=== PATIENT | female | born 1935 | race Caucasian/White ===

== ENCOUNTER 2017-11-20 14:39 | Outpatient (CLI) | payer MEDICARE, OTHER ==
[2017-11-20 17:52] LABS: BASOPHILS % (AUTO) 1.1 %; EOSINOPHILS # (AUTO) 0.1 10^3/uL (0.0-0.7); EOSINOPHILS % (AUTO) 2.6 %; HGB - HEMOGLOBIN 13.4 g/dL (12.0-16.0); LYMPHOCYTES # (AUTO) 1.5 10^3/uL (1.5-3.5); LYMPHOCYTES % (AUTO) 34.6 %; MEAN CORPUSCULAR HEMOGLOBIN 30.7 pg (27.0-31.0); MEAN CORPUSCULAR VOLUME 93.1 fL (81.0-99.0); MEAN PLATELET VOLUME 9.6 fL (7.9-10.8); MONOCYTES # (AUTO) 0.4 10^3/uL (0.0-1.0); MONOCYTES % (AUTO) 8.4 %; NEUTROPHILS # (AUTO) 2.3 10^3/uL (1.5-6.6); NEUTROPHILS % (AUTO) 53.3 %; PLT - PLATELET COUNT 135 10^3/uL (130-450); RED BLOOD COUNT 4.35 10^6/uL (4.20-5.40); RED CELL DISTRIBUTION WIDTH 13.6 % (12.0-15.0); WHITE BLOOD COUNT 4.2 x10^3/uL (4.8-10.8)
[2017-11-20 17:59] LABS: ALBUMIN 4.2 g/dL (3.2-5.5); ALBUMIN/GLOBULIN RATIO 1.6 (1.0-2.2); ALKALINE PHOSPHATASE 60 IU/L (42-121); ALT ALANINE AMINOTRANSFERASE < 10 IU/L (10-60); AST ASPARTATE AMINOTRANSFERASE 19 IU/L (10-42); BILIRUBIN,TOTAL 0.2 mg/dL (0.2-1.0); BUN - BLOOD UREA NITROGEN 13 mg/dL (6-20); CALCIUM 8.9 mg/dL (8.5-10.3); CARBON DIOXIDE - CO2 30 mmol/L (21-32); CHLORIDE 108 mmol/L (101-111); CREATININE 0.6 mg/dL (0.4-1.0); GFR - MDRD 96 (>89); GLUCOSE 107 mg/dL (70-100); SODIUM 141 mmol/L (135-145); TOTAL PROTEIN 6.8 g/dL (6.7-8.2)
== END 2017-11-20 14:40 | disposition home or self-care (01) ==
LOC: LAB.F 14:39
PROVIDERS: ATTEND Physician Assistant Medical
DX: Z51.81 Encounter for therapeutic drug level monitoring (principal)
CPT/HCPCS: 36415; 80053; 85025

== ENCOUNTER 2018-01-23 11:32 | Outpatient (CLI) | payer MEDICARE, OTHER | END 2018-01-23 11:33 | disposition critical access hospital (66) | LOC: EMS 11:32 | PROVIDERS: ATTEND Surgery | DX: R07.9 Chest pain, unspecified (principal) | CPT/HCPCS: A0425; A0427 ==

== ENCOUNTER 2018-01-23 12:10 | Emergency (ER) | payer MEDICARE, OTHER ==
[2018-01-23 12:53] LABS: BASOPHILS % (AUTO) 0.9 %; EOSINOPHILS # (AUTO) 0.1 10^3/uL (0.0-0.7); EOSINOPHILS % (AUTO) 2.4 %; HGB - HEMOGLOBIN 13.9 g/dL (12.0-16.0); LYMPHOCYTES # (AUTO) 1.5 10^3/uL (1.5-3.5); LYMPHOCYTES % (AUTO) 29.2 %; MEAN CORPUSCULAR HEMOGLOBIN 30.8 pg (27.0-31.0); MEAN CORPUSCULAR HGB CONC 34.2 g/dL (32.0-36.0); MEAN CORPUSCULAR VOLUME 90.1 fL (81.0-99.0); MEAN PLATELET VOLUME 8.6 fL (7.9-10.8); MONOCYTES # (AUTO) 0.4 10^3/uL (0.0-1.0); MONOCYTES % (AUTO) 7.5 %; NEUTROPHILS # (AUTO) 3.1 10^3/uL (1.5-6.6); PLT - PLATELET COUNT 108 10^3/uL (130-450); RED BLOOD COUNT 4.51 10^6/uL (4.20-5.40); RED CELL DISTRIBUTION WIDTH 13.7 % (12.0-15.0); WHITE BLOOD COUNT 5.2 x10^3/uL (4.8-10.8)
[2018-01-23 13:08] LABS: ALBUMIN 3.8 g/dL (3.2-5.5); ALBUMIN/GLOBULIN RATIO 1.4 (1.0-2.2); BILIRUBIN,TOTAL 0.3 mg/dL (0.2-1.0); CALCIUM 8.6 mg/dL (8.5-10.3); CREATININE 0.5 mg/dL (0.4-1.0); TOTAL PROTEIN 6.5 g/dL (6.7-8.2)
--- NOTE | 2018-01-23 13:14 | XRAY Report ---
EXAM: CHEST RADIOGRAPHY EXAM DATE: 01/23/2018 12:39 PM. CLINICAL HISTORY: Chest pain. COMPARISON: 01/23/2018. TECHNIQUE: 2 views. FINDINGS: Lungs/Pleura: Lungs appear clear. No pleural effusion or pneumothorax. Relatively large lung volumes as before. Mediastinum: Stable cardiomediastinal silhouette. Similar tortuous mildly ectatic aorta. Other: Scoliosis. Bone demineralization. No acute fracture identified. IMPRESSION: 1. No acute cardiopulmonary findings. Grossly clear lungs. [facility] Referring Provider Line: [phone] SITE ID: [id number]
--- NOTE | 2018-01-23 13:14 | XRAY Preliminary Report ---
Exam: XR CHEST 2 VIEW X-RAY IMPRESSION: 1. No acute cardiopulmonary findings. Grossly clear lungs. [facility] SITE ID: [id number]
--- NOTE | 2018-01-23 13:33 | ED Physician Documentation ---
PD HPI CHEST PAIN - Stated complaint Stated Complaint: CP - Chief complaint Chief Complaint: Cardiac - History obtained from History obtained from: Patient - History of Present Illness Timing - onset: Today Timing - onset during: Rest Timing - duration: Minutes Timing - details: Abrupt onset, Now resolved Quality: Pressure Location: Substernal Radiation: No: Jaw, Neck Improved by: Rest Associated symptoms: Diaphoresis, Feeling faint / dizzy Similar symptoms before: Diagnosis (dehydration) Recently seen: Not recently seen - Additional information Additional information: 82-year-old female sitting her couch today when she developed some substernal chest pain. She has had something similar to this previously a number of times and she usually has this resolved spontaneously or she takes some nitroglycerin and it resolved. Today should this did not resolve with 2 nitro and she called the ambulance. Pain is resolved prior to arrival to the emergency department. Review of Systems Constitutional: denies: Fever Eyes: denies: Decreased vision Ears: denies: Ear pain Nose: denies: Congestion Throat: denies: Sore throat Cardiac: reports: Chest pain / pressure. 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 - Present Medications Home Medications: Ambulatory Orders Medication Instructions Recorded Confirmed Multivitamin [Multivitamins] 1 each PO DAILY 12/21/15 04/17/17 Nitroglycerin [Nitrostat] 0.4 mg SL ONCE PRN 12/21/15 04/17/17 Acetaminophen [Tylenol] 650 mg PO Q4H PRN 06/18/16 04/17/17 Ferrous Sulfate 90 mg PO DAILY 06/18/16 04/17/17 Metoprolol Succinate [Toprol Xl] 50 mg PO DAILY 06/18/16 04/17/17 Omeprazole 20 mg PO DAILY 06/18/16 04/17/17 Calcium Citrate/Magnesium/D3 630 mg PO DAILY 07/18/16 04/17/17 [Calcium Citrate Chewable Wafer] Donepezil [Aricept] 10 mg PO QPM 07/18/16 04/17/17 Potassium Chloride 20 meq PO DAILY 07/18/16 04/17/17 - Allergies Allergies/Adverse Reactions: Allergies Allergy/AdvReac Type Severity Reaction Status Date / Time aspirin Allergy Unknown Verified 01/23/18 12:18 Penicillins Allergy Unknown Verified 01/23/18 12:18 bellpepper Allergy Anaphylaxis Uncoded 01/23/18 12:18 eggplant Allergy Anaphylaxis Uncoded 01/23/18 12:18 potato Allergy Anaphylaxis Uncoded 01/23/18 12:18 tomato Allergy Anaphylaxis Uncoded 01/23/18 12:18 - Social History Does the pt smoke?: No Smoking Status: Never smoker Does the pt have substance abuse?: No - Immunizations Immunizations are current?: No Immunizations: TDAP >10years/unknown PD ED PE NORMAL - Vitals Vital signs reviewed: Yes (hypertensive ) - General General: Alert and oriented X 3, No acute distress, Well developed/nourished - HEENT HEENT: Atraumatic, PERRL, EOMI - Neck Neck: Supple, no meningeal sign, No bony TTP - Cardiac Cardiac: RRR, No murmur - Respiratory Respiratory: No respiratory distress, Clear bilaterally - Abdomen Abdomen: Soft, Non tender - Back Back: No CVA TTP, No spinal TTP - Derm Derm: Normal color, Warm and dry, No rash - Extremities Extremities: No deformity, No edema - Neuro Neuro: Alert and oriented X 3, 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, No motor deficit, No sensory deficit, Normal speech Eye Opening: Spontaneous Motor: Obeys Commands Verbal: Oriented GCS Score: 15 - Psych Psych: Normal mood, Normal affect Results - Vitals Vitals: Vital Signs - 24 hr 01/23/18 01/23/18 12:13 14:38 Temperature 37.2 C 36.7 C Heart Rate 78 79 Respiratory 16 17 Rate Blood Pressure 160/77 H 180/82 H O2 Saturation 96 99 Oxygen O2 Source Room air - EKG (time done) 1217 Rate: Rate (enter#) (73) Rhythm: NSR Intervals: Prolonged GA QRS: LVH Ischemia: Q waves (inferior and anterior) Compare to prior EKG: Unchanged from prior EKG (12-22-15) Computer interpretation: Agree with computer - Labs Labs: Laboratory Tests 01/23/18 01/23/18 01/23/18 12:50 12:50 12:50 WBC 5.2 RBC 4.51 Hgb 13.9 Hct 40.6 MCV 90.1 MCH 30.8 MCHC 34.2 RDW 13.7 Plt Count 108 L MPV 8.6 Neut # 3.1 Lymph # 1.5 Mccreary # 0.4 Eos # 0.1 Baso # 0.0 Absolute Nucleated RBC 0.00 Nucleated RBC % 0.0 Sodium 138 Potassium 3.7 Chloride 107 Carbon Dioxide 25 Anion Gap 6.0 BUN 21 H Creatinine 0.5 Estimated GFR (MDRD) 118 Glucose 98 Calcium 8.6 Total Bilirubin 0.3 AST 18 ALT 10 Alkaline Phosphatase 56 Troponin I < 0.04 Total Protein 6.5 L Albumin 3.8 Globulin 2.7 Albumin/Globulin Ratio 1.4 Lipase 20 L - Rads (name of study) 2 view chest Radiology: Prelim report reviewed (Impression: 1. No acute cardiopulmonary findings. Grossly clear lungs.), EMP read indepedently, See rad report Procedures - IVC sono (time) 1408 Bedside IVC sono: IVC measures (cm) (1.12), IVC collapsed c insp (cm) (complete) , Dehydration (est 1 liter deficit) PD MEDICAL DECISION MAKING - ED course Complexity details: reviewed old records, reviewed results, re-evaluated patient , considered differential, d/w patient ED course: 82-year-old female has presented to the emergency department today with episode of chest pain that is now resolved. She has had similar symptoms previously. Here in the emergency department today her troponin is negative her chest x-ray shows a very clear appearing chest x-ray and I am concerned about dehydration. I confirm this by interrogation of the inferior vena cava which shows a collapsing vena cava with a measurement consistent with approximately 1 L deficit. She is administered saline 1 L intravenously. In review of the patient's chart she has prior episodes with concern for dehydration on a number of visits. Today BUN is up slightly out of proportion to the creatinine consistent with prerenal azotemia. Departure - Departure Disposition: 01 Home, Self Care Clinical Impression: Dehydration Condition: Stable Instructions: ED Dehydration Follow-Up: Georgina Fuentes PA-C [Primary Care Provider] -
[2018-01-23] MEDS ORDERED: SODIUM CHLORIDE 0.9% 1,000 ML IV ONE (14:09)
[2018-01-23 16:39] VITALS: BP 141/62
== END 2018-01-23 17:12 | disposition home or self-care (01) ==
LOC: EDUNIT# → ED 12:10
DX: E86.0 Dehydration (principal); I10 Essential (primary) hypertension; I25.119 Atherosclerotic heart disease of native coronary artery with unspecified angina pectoris; J44.9 Chronic obstructive pulmonary disease, unspecified; K21.9 Gastro-esophageal reflux disease without esophagitis; M19.90 Unspecified osteoarthritis, unspecified site
CPT/HCPCS: 36415; 71046; 80053; 83690; 84484; 85025; 93005; 99284

== ENCOUNTER 2018-02-13 09:48 | Outpatient (CLI) | payer MEDICARE, OTHER | END 2018-02-13 09:49 | disposition critical access hospital (66) | LOC: EMS 09:48 | PROVIDERS: ATTEND Surgery | DX: M25.551 Pain in right hip (principal); W18.30XA Fall on same level, unspecified, initial encounter; Y92.9 Unspecified place or not applicable | CPT/HCPCS: A0425; A0429 ==

== ENCOUNTER 2018-02-13 10:46 | Emergency (ER) | payer MEDICARE, OTHER ==
[2018-02-13] MEDS ORDERED: SODIUM CHLORIDE 0.9% 1,000 ML IV ONE (11:28)
--- NOTE | 2018-02-13 11:30 | ED Physician Documentation ---
PD HPI NVD - Stated complaint Stated Complaint: FALL - Chief complaint Chief Complaint: Trauma Ext - History obtained from History obtained from: Patient, EMS - History of Present Illness Timing - onset: Today Contributing factors: No: Sick contact, Travel, Recent antibiotics - Additonal information Additional information: The patient is an 82-year-old female who arrives via ambulance after her family found her lying on the floor outside the bathroom this morning. She had been complaining of right hip pain at that time, but she denies right hip pain to me. She has a history of chronic left hip pain. Her main complaint to me is, "I have got the trots that just won't stop." She reports having diarrhea for the past 3 days, with about 6 episodes this morning. She reports having loose stool sporadically for the past 2 weeks. She denies abdominal pain, fever, nausea, vomiting, or dysuria. She denies any recent travel, any recent antibiotics, or any food or water that is different from usual. She denies history of similar symptoms in the past. She lives at home and her son lives with her. Past medical history is significant for dementia, CAD, and hypertension. Review of Systems Constitutional: denies: Fever Nose: denies: Congestion Cardiac: denies: Chest pain / pressure Respiratory: denies: Dyspnea, Cough GI: reports: Diarrhea. denies: Abdominal Pain, Nausea, Vomiting : denies: Dysuria Skin: denies: Rash Musculoskeletal: reports: Joint pain (left hip) Neurologic: reports: Confused (chronically). 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 - Present Medications Home Medications: Ambulatory Orders Medication Instructions Recorded Confirmed Multivitamin [Multivitamins] 1 each PO DAILY 12/21/15 02/14/18 Nitroglycerin [Nitrostat] 0.4 mg SL ONCE PRN 12/21/15 02/14/18 Acetaminophen [Tylenol] 650 mg PO Q4H PRN 06/18/16 02/14/18 Ferrous Sulfate 90 mg PO DAILY 06/18/16 02/14/18 Metoprolol Succinate [Toprol Xl] 50 mg PO DAILY 06/18/16 02/14/18 Omeprazole 20 mg PO DAILY 06/18/16 02/14/18 Calcium Citrate/Magnesium/D3 630 mg PO DAILY 07/18/16 02/14/18 [Calcium Citrate Chewable Wafer] Donepezil [Aricept] 10 mg PO QPM 07/18/16 02/14/18 Potassium Chloride 20 meq PO DAILY 07/18/16 02/14/18 Potassium Chloride [K-Dur] 20 meq PO DAILY #7 tablet 02/13/18 02/14/18 Vancomycin [Vancocin] 125 mg PO QID #40 capsule 02/13/18 02/14/18 Lidocaine Patch 5% [Lidoderm Patch] 1 each TOP DAILY PRN #10 patch 02/14/18 - Allergies Allergies/Adverse Reactions: Allergies Allergy/AdvReac Type Severity Reaction Status Date / Time aspirin Allergy Severe Unknown Verified 02/14/18 11:07 Penicillins Allergy Severe Unknown Verified 02/14/18 11:07 bellpepper Allergy Severe Anaphylaxis Uncoded 02/14/18 11:07 eggplant Allergy Severe Anaphylaxis Uncoded 02/14/18 11:07 potato Allergy Severe Anaphylaxis Uncoded 02/14/18 11:07 tomato Allergy Severe Anaphylaxis Uncoded 02/14/18 11:07 - Social History Does the pt smoke?: No Smoking Status: Never smoker Does the pt have substance abuse?: No - Immunizations Immunizations are current?: No Immunizations: TDAP >10years/unknown PD ED PE NORMAL - Vitals Vital signs reviewed: Yes (hypertensive) - General General: Well developed/nourished, Other (Alert, but confused, unable to state the year or the current president.) - HEENT HEENT: Atraumatic, Moist mucous membranes, Pharynx benign - Neck Neck: No adenopathy, No JVD - Cardiac Cardiac: RRR, No murmur - Respiratory Respiratory: No respiratory distress, Clear bilaterally - Abdomen Abdomen: Normal bowel sounds, Soft, Non tender, No organomegaly - Rectal Rectal: Other (Loose diarrhea stool, malodorous, heme neg.) - Back Back: No CVA TTP - Derm Derm: No rash - Extremities Extremities: No edema, No calf tenderness / cord - Neuro Neuro: No motor deficit, No sensory deficit, Normal speech, Other (Alert but confused.) Results - Vitals Vitals: Oxygen O2 Source Room air - Labs Labs: Microbiology 02/13/18 12:40 Urine Culture - Preliminary Urine,Catheterized No growth 02/13/18 11:27 Campylobacter Antigen Assay - Final Stool Stool Culture - Preliminary NO SHIGA TOXIN 1 OR 2 DETECTED 02/13/18 11:27 Clostridium difficile (PCR) - Final Stool Laboratory Tests 02/13/18 02/13/18 02/13/18 12:31 12:31 12:40 WBC 8.9 RBC 4.42 Hgb 13.6 Hct 39.7 MCV 89.7 MCH 30.7 MCHC 34.2 RDW 13.3 Plt Count 94 L MPV 9.1 Neut # 7.3 H Lymph # 0.9 L [place] # 0.7 Eos # 0.0 Baso # 0.0 Absolute Nucleated RBC 0.00 Nucleated RBC % 0.0 Sodium 137 Potassium 3.0 L Chloride 103 Carbon Dioxide 26 Anion Gap 8.0 BUN 15 Creatinine 0.6 Estimated GFR (MDRD) 96 Glucose 118 H Calcium 8.6 Total Bilirubin 0.6 AST 23 ALT < 10 L Alkaline Phosphatase 70 Total Protein 7.0 Albumin 3.7 Globulin 3.3 Albumin/Globulin Ratio 1.1 Lipase < 10 L Urine Color DARK YELLOW Urine Clarity SL. CLOUDY Urine pH 5.5 Ur Specific [place] >=1.030 H Urine Protein 100 H Urine Glucose (UA) NEGATIVE Urine Ketones 15 H Urine Occult Blood TRACE-LYSE Urine Nitrite NEGATIVE Urine Bilirubin NEGATIVE Urine Urobilinogen 0.2 (NORMAL) Ur Leukocyte Esterase NEGATIVE Urine RBC 6-10 H Urine WBC 0-3 Ur Squamous Epith Cells RARE Squamous Amorphous Sediment Few Urine Bacteria Many H Urine Casts 0-2 Granular Casts Urine Mucus Moderate Strands Ur Microscopic Review INDICATED Urine Culture Comments INDICATED - Rads (name of study) left hip w/pelvis Radiology: Prelim report reviewed, EMP read contemporaneously, See rad report ( No acute osseous abnormality. No significant change from prior, allowing for differences in technique.) PD MEDICAL DECISION MAKING - ED course Complexity details: reviewed results, re-evaluated patient, considered differential, d/w patient, d/w family, d/w PMD ED course: The patient's presentation is most significant for C. difficile diarrhea, with positive C. difficile PCR. She was seen because of a fall this morning. There appears to been no injury caused from the fall. Imaging study of her left hip reveals no acute fracture or dislocation. CBC and chemistry panel are unremarkable except for hypokalemia with a potassium of 3.0. Treatment in the emergency department included administration of potassium 20 mEq orally, normal saline 1 L IV, metronidazole 500 mg orally, and vancomycin 125 mg orally. She is being discharged with prescription for vancomycin. I discussed with her, her son, and her primary physician, the results of the workup, outpatient treatment and follow-up, as well as potentially worrisome signs or symptoms that should prompt reevaluation in the emergency department. Departure - Departure Disposition: 01 Home, Self Care Clinical Impression: C. difficile diarrhea, Hypokalemia, Dehydration Dementia Qualifiers: Dementia type: unspecified type Dementia behavioral disturbance: without behavioral disturbance Qualified Code(s): F03.90 - Unspecified dementia without behavioral disturbance Condition: Stable Instructions: ED Diarrhea Bacterial Follow-Up: Georgina Fuentes PA-C [Primary Care Provider] - Prescriptions: Potassium Chloride [K-Dur] 20 meq PO DAILY #7 tablet Vancomycin [Vancocin] 125 mg PO QID #40 capsule Comments: Drink plenty of fluids. Take vancomycin 4 times daily for 10 days as prescribed. Take supplemental potassium as prescribed. Follow up with your primary physician within 1 week. Call to schedule appointment. Return to the emergency department if you develop increasing abdominal pain, dehydration, or otherwise worsening symptoms. Discharge Date/Time: 02/13/18 16:36
--- NOTE | 2018-02-13 12:40 | XRAY Report ---
EXAM: LEFT HIP AND PELVIS RADIOGRAPHY EXAM DATE: 02/13/2018 12:02 PM. HISTORY: Fall with mild left hip pain. COMPARISONS: 12/07/2015. TECHNIQUE: 1 view of the pelvis and 1 view of the hip. 3 images are provided. FINDINGS: Bones: Diffuse demineralization. Status post right total hip arthroplasty without evidence of hardwar e loosening or failure. Joints: No dislocation. Soft Tissues: No significant abnormality. IMPRESSION: No acute osseous abnormality. No significant change from prior allowing for differences i n technique. [facility] Referring Provider Line: [phone] SITE ID: [id number]
--- NOTE | 2018-02-13 12:40 | XRAY Preliminary Report ---
Exam: XR HIP W/PELVIS 1V LT IMPRESSION: No acute osseous abnormality. No significant change from prior allowing for differences i n technique. [facility] SITE ID: [id number]
[2018-02-13 12:43] LABS: BASOPHILS % (AUTO) 0.3 %; EOSINOPHILS % (AUTO) 0.3 %; HGB - HEMOGLOBIN 13.6 g/dL (12.0-16.0); LYMPHOCYTES # (AUTO) 0.9 10^3/uL (1.5-3.5); LYMPHOCYTES % (AUTO) 9.6 %; MEAN CORPUSCULAR HEMOGLOBIN 30.7 pg (27.0-31.0); MEAN CORPUSCULAR HGB CONC 34.2 g/dL (32.0-36.0); MEAN CORPUSCULAR VOLUME 89.7 fL (81.0-99.0); MEAN PLATELET VOLUME 9.1 fL (7.9-10.8); MONOCYTES # (AUTO) 0.7 10^3/uL (0.0-1.0); MONOCYTES % (AUTO) 8.3 %; NEUTROPHILS # (AUTO) 7.3 10^3/uL (1.5-6.6); NEUTROPHILS % (AUTO) 81.5 %; PLT - PLATELET COUNT 94 10^3/uL (130-450); RED BLOOD COUNT 4.42 10^6/uL (4.20-5.40); RED CELL DISTRIBUTION WIDTH 13.3 % (12.0-15.0); WHITE BLOOD COUNT 8.9 x10^3/uL (4.8-10.8)
[2018-02-13 12:44] LABS: CLARITY,URINE SL. CLOUDY (CLEAR); GLUCOSE, URINE (UA) NEGATIVE (NEGATIVE); KETONES,URINE (UA) 15 mg/dL (NEGATIVE); LEUKOCYTE ESTERASE, URINE NEGATIVE (NEGATIVE); NITRITE,URINE NEGATIVE (NEGATIVE); OCCULT BLOOD,URINE TRACE-LYSE (NEGATIVE); PH,URINE 5.5 PH (5.0-7.5); PROTEIN,URINE 100 mg/dL (NEGATIVE); UROBILINOGEN,URINE 0.2 (NORMAL) E.U./dL (NORMAL)
[2018-02-13 12:47] LABS: BILIRUBIN,URINE NEGATIVE (NEGATIVE); ICTOTEST,URINE NEGATIVE
[2018-02-13 12:53] LABS: AMORPHOUS SEDIMENT,UR Few /LPF; BACTERIA,URINE Many /HPF (None Seen); SQUAMOUS EPITHELIAL CELL,UR RARE Squamous (<= Few)
[2018-02-13 12:54] LABS: CASTS, URINE 0-2 Granular Casts /LPF; MUCUS,URINE Moderate Strands
[2018-02-13 13:04] LABS: ALBUMIN 3.7 g/dL (3.2-5.5); ALBUMIN/GLOBULIN RATIO 1.1 (1.0-2.2); ALKALINE PHOSPHATASE 70 IU/L (42-121); ALT ALANINE AMINOTRANSFERASE < 10 IU/L (10-60); AST ASPARTATE AMINOTRANSFERASE 23 IU/L (10-42); BILIRUBIN,TOTAL 0.6 mg/dL (0.2-1.0); BUN - BLOOD UREA NITROGEN 15 mg/dL (6-20); CALCIUM 8.6 mg/dL (8.5-10.3); CARBON DIOXIDE - CO2 26 mmol/L (21-32); CHLORIDE 103 mmol/L (101-111); CREATININE 0.6 mg/dL (0.4-1.0); GFR - MDRD 96 (>89); GLUCOSE 118 mg/dL (70-100); LIPASE < 10 U/L (22-51); SODIUM 137 mmol/L (135-145)
[2018-02-13] MEDS ORDERED: POTASSIUM CHLORIDE 20 MEQ TABLET PO STA (13:05)
[2018-02-13] MEDS ORDERED: NITROFURANTOIN MACRO 100 MG CAPSULE PO STA (13:10)
[2018-02-13] MEDS ORDERED: metroNIDAZOLE 250 MG TABLET PO STA (13:24)
[2018-02-13] MEDS ORDERED: VANCOMYCIN 125 MG CAPSULE PO STA (14:31)
[2018-02-13 16:01] VITALS: BP 150/92
== END 2018-02-13 16:36 | disposition home or self-care (01) ==
LOC: EDUNIT# → ED 10:46
DX: A04.72 Enterocolitis due to Clostridium difficile, not specified as recurrent (principal); E87.6 Hypokalemia; E86.0 Dehydration; F03.90 Unspecified dementia, unspecified severity, without behavioral disturbance, psychotic disturbance, mood disturbance, and anxiety; M25.552 Pain in left hip; G89.29 Other chronic pain; W19.XXXA Unspecified fall, initial encounter; Y92.009 Unspecified place in unspecified non-institutional (private) residence as the place of occurrence of the external cause; I25.10 Atherosclerotic heart disease of native coronary artery without angina pectoris; I10 Essential (primary) hypertension; Z96.649 Presence of unspecified artificial hip joint; M81.0 Age-related osteoporosis without current pathological fracture
CPT/HCPCS: 36415; 51701; 73501; 80053; 81001; 83690; 85025; 87045; 87046; 87086; 87177; 87209; 87493; 96360; 96361; 99284; A9270; J8499; 81003

== ENCOUNTER 2018-02-14 10:19 | Outpatient (CLI) | payer MEDICARE, OTHER | END 2018-02-14 10:20 | disposition critical access hospital (66) | LOC: EMS 10:19 | PROVIDERS: ATTEND Surgery | DX: M54.2 Cervicalgia (principal); W06.XXXA Fall from bed, initial encounter; Y92.9 Unspecified place or not applicable | CPT/HCPCS: A0425; A0429 ==

== ENCOUNTER 2018-02-14 10:59 | Emergency (ER) | payer MEDICARE, OTHER ==
--- NOTE | 2018-02-14 11:06 | ED Physician Documentation ---
History of Present Illness - Stated complaint Stated Complaint: GLF - Additonal information Additional information: hx from pt 82 female seen yesterday for a fall dx UTI discharged has not been able to fill meds yet fell again today and struck back of head no LOC + GARCIA and neck pain no numbness or weakness no ext injury denies CP and AP lives in home with her son arrives in her hospital scrub pants and socks from yesterday with her sons name and number on a note Review of Systems Constitutional: denies: Fever, Chills Ears: denies: Drainage/discharge Nose: denies: Epistaxis Cardiac: denies: Chest pain / pressure Respiratory: denies: Dyspnea GI: denies: Abdominal Pain, Nausea, Vomiting Musculoskeletal: reports: Neck pain Neurologic: reports: Headache, Head injury. 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 - Present Medications Home Medications: Ambulatory Orders Medication Instructions Recorded Confirmed Multivitamin [Multivitamins] 1 each PO DAILY 12/21/15 02/14/18 Nitroglycerin [Nitrostat] 0.4 mg SL ONCE PRN 12/21/15 02/14/18 Acetaminophen [Tylenol] 650 mg PO Q4H PRN 06/18/16 02/14/18 Ferrous Sulfate 90 mg PO DAILY 06/18/16 02/14/18 Metoprolol Succinate [Toprol Xl] 50 mg PO DAILY 06/18/16 02/14/18 Omeprazole 20 mg PO DAILY 06/18/16 02/14/18 Calcium Citrate/Magnesium/D3 630 mg PO DAILY 07/18/16 02/14/18 [Calcium Citrate Chewable Wafer] Donepezil [Aricept] 10 mg PO QPM 07/18/16 02/14/18 Potassium Chloride 20 meq PO DAILY 07/18/16 02/14/18 Potassium Chloride [K-Dur] 20 meq PO DAILY #7 tablet 02/13/18 02/14/18 Vancomycin [Vancocin] 125 mg PO QID #40 capsule 02/13/18 02/14/18 Lidocaine Patch 5% [Lidoderm Patch] 1 each TOP DAILY PRN #10 patch 02/14/18 - Allergies Allergies/Adverse Reactions: Allergies Allergy/AdvReac Type Severity Reaction Status Date / Time aspirin Allergy Severe Unknown Verified 02/14/18 11:07 Penicillins Allergy Severe Unknown Verified 02/14/18 11:07 bellpepper Allergy Severe Anaphylaxis Uncoded 02/14/18 11:07 eggplant Allergy Severe Anaphylaxis Uncoded 02/14/18 11:07 potato Allergy Severe Anaphylaxis Uncoded 02/14/18 11:07 tomato Allergy Severe Anaphylaxis Uncoded 02/14/18 11:07 - Social History Does the pt smoke?: No Smoking Status: Never smoker Does the pt have substance abuse?: No - Immunizations Immunizations are current?: No Immunizations: TDAP >10years/unknown PD ED PE NORMAL - Vitals Vital signs reviewed: Yes - HEENT HEENT: Other (TTP L occiput s lac) - Neck Neck: No: No bony TTP (+ midline TTP) - Cardiac Cardiac: RRR - Respiratory Respiratory: No respiratory distress, Clear bilaterally - Abdomen Abdomen: Soft, Non tender - Derm Derm: Normal color - Extremities Extremities: No deformity, No tenderness to palpate - Neuro Neuro: No: Alert and oriented X 3 (confused + medics state she has dementia) Eye Opening: Spontaneous Motor: Obeys Commands Verbal: Confused GCS Score: 14 Results - Vitals Vitals: Vital Signs - 24 hr 02/14/18 11:05 Temperature 37.1 C Heart Rate 67 Respiratory 14 Rate Blood Pressure 136/105 H O2 Saturation 100 Oxygen O2 Source Room air - Rads (name of study) CTH Radiology: See rad report (no fx or bleed) CT CS' Radiology: See rad report (no fx or dislocation) PD MEDICAL DECISION MAKING - ED course ED course: EMS report was that pt had a UTI but when i looked up yesterdays note to see what ab so i could give a dose apparently she actually has c diff diarrhea not a UTI at all - so gave IVF and a dose of vanco and will road test and dc if safe CTH and CS neg nurse got pt up and she was steady on her feet with nl VS feel safe for her to go home where she has son for assistance nurse has called son to update him on plan Departure - Departure Disposition: 01 Home, Self Care Clinical Impression: Head injury Qualifiers: Encounter type: initial encounter Qualified Code(s): S09.90XA - Unspecified injury of head, initial encounter Neck sprain Qualifiers: Encounter type: initial encounter Qualified Code(s): S13.9XXA - Sprain of joints and ligaments of unspecified parts of neck, initial encounter Fall Qualifiers: Encounter type: initial encounter Qualified Code(s): W19.XXXA - Unspecified fall, initial encounter Condition: Good Instructions: ED Head Injury Closed, ED Neck Back Pain General Follow-Up: Georgina Fuentes PA-C [Primary Care Provider] - Prescriptions: Lidocaine Patch 5% [Lidoderm Patch] 1 each TOP DAILY PRN #10 patch PRN Reason: Pain Comments: Please continue the antibiotics for your c-difficile colon infection. Drink plenty of fluids Rest as much as possible Please ask you son for assistance and / or use a walker for extra support to prevent falls Follow up with your PMD next week Return if worse
--- NOTE | 2018-02-14 11:44 | CT Report ---
EXAM: CT HEAD EXAM DATE: 02/14/2018 11:31 AM. CLINICAL HISTORY: Fall headache and neck pain. COMPARISON: None. TECHNIQUE: Multiaxial CT images were obtained from the foramen magnum to the vertex. Reformats: Coron al. IV contrast: None. In accordance with CT protocol optimization, one or more of the following dose reduction techniques w ere utilized for this exam: automated exposure control, adjustment of mA and/or KV based on patient s ize, or use of iterative reconstructive technique. FINDINGS: Parenchyma: No intraparenchymal hemorrhage. No evidence of mass, midline shift, or CT findings of inf arction. There are periventricular and deep white matter low attenuating foci, suggesting chronic alessio rovascular ischemic changes. Hammonds-white differentiation appears otherwise distinct. Extraaxial Spaces: Normal for age. No subdural or epidural collections identified. Ventricles: No midline shift. Sinuses and Orbits: Postsurgical right orbit is noted. The paranasal sinuses and mastoid air cells ap pear well-aerated. Bones: No evidence of fracture or calvarial defect. Other: Scalp granulomas are noted. IMPRESSION: No evidence of acute intracranial process or calvarial fracture [facility] Referring Provider Line: [phone] SITE ID: [id number]
--- NOTE | 2018-02-14 11:44 | CT Preliminary Report ---
Exam: CT HEAD W/O IMPRESSION: No evidence of acute intracranial process or calvarial fracture [facility] SITE ID: [id number]
--- NOTE | 2018-02-14 11:50 | CT Report ---
EXAM: CT CERVICAL SPINE WITHOUT CONTRAST DATE: 02/14/2018 11:31 AM. HISTORY: Fall headache and neck pain. COMPARISONS: None. TECHNIQUE: Thin-section axial images were acquired of the cervical spine without contrast. Post-proce ssing: Coronal and sagittal reformats In accordance with CT protocol optimization, one or more of the following dose reduction techniques w ere utilized for this exam: automated exposure control, adjustment of mA and/or KV based on patient s ize, or use of iterative reconstructive technique. FINDINGS: Alignment is anatomic. No evidence of cervical spine fracture. Prevertebral soft tissues are unremark able. There is moderate disk space narrowing at C4-C5. There is moderate to severe disk space narrowing at C5-C6 and C6-C7. There are moderate anterior osteophytes at multiple levels. Osteophytes cause mild narrowing of the bony spinal canal at the C5-C6 and C6-C7 levels. Osteophytes cause narrowing of the bony neural foramina as follows: Right C4-C5 mild C5-C6 moderate C6-C7 mild C7-T1 mild Left C4-C5 moderate C5-C6 and mild C6-C7 mild to moderate IMPRESSION: Moderate cervical spondylosis. No cervical spine fracture. [facility] Referring Provider Line: [phone] SITE ID: [id number]
[2018-02-14] MEDS ORDERED: LIDOCAINE PATCH 5% TOP PRN (12:50)
[2018-02-14] MEDS ORDERED: SODIUM CHLORIDE 0.9% 1,000 ML IV ONE (12:52)
[2018-02-14] MEDS ORDERED: VANCOMYCIN 500 MG VIAL PO SCH (13:00)
[2018-02-14] MEDS ORDERED: VANCOMYCIN 125 MG CAPSULE PO STA ×2 (13:11→13:12)
[2018-02-14 15:39] VITALS: BP 139/69
== END 2018-02-14 16:33 | disposition home or self-care (01) ==
LOC: EDUNIT# → ED 10:59
DX: S13.9XXA Sprain of joints and ligaments of unspecified parts of neck, initial encounter (principal); S09.90XA Unspecified injury of head, initial encounter; W18.39XA Other fall on same level, initial encounter; I10 Essential (primary) hypertension; I25.119 Atherosclerotic heart disease of native coronary artery with unspecified angina pectoris; K21.9 Gastro-esophageal reflux disease without esophagitis; M19.90 Unspecified osteoarthritis, unspecified site; M81.0 Age-related osteoporosis without current pathological fracture
CPT/HCPCS: 70450; 72125; 99283; A9270; J8499

== ENCOUNTER 2018-08-28 13:14 | Outpatient (CLI) | payer MEDICARE | END 2018-08-28 13:15 | disposition EMS.NT | LOC: EMS 13:14 | PROVIDERS: ATTEND Surgery | DX: R51 Headache (principal); V09.09XA Pedestrian injured in nontraffic accident involving other motor vehicles, initial encounter; Y92.480 Sidewalk as the place of occurrence of the external cause ==

== ENCOUNTER 2018-09-09 16:41 | Outpatient (CLI) | payer MEDICARE | END 2018-09-09 16:42 | disposition EMS.NT | LOC: EMS 16:41 | PROVIDERS: ATTEND Surgery | DX: R07.9 Chest pain, unspecified (principal) ==

== ENCOUNTER 2019-04-01 08:50 | Outpatient (CLI) | payer MEDICARE | END 2019-04-01 08:51 | disposition critical access hospital (66) | LOC: EMS 08:50 | PROVIDERS: ATTEND Surgery | DX: M25.552 Pain in left hip (principal); W06.XXXA Fall from bed, initial encounter; Y92.003 Bedroom of unspecified non-institutional (private) residence as the place of occurrence of the external cause | CPT/HCPCS: A0425; A0429 ==

== ENCOUNTER 2019-04-01 09:30 | Observation (INO) | payer MEDICARE ==
--- NOTE | 2019-04-01 09:39 | ED Physician Documentation ---
PD HPI LOWER EXT INJURY - Stated complaint Stated Complaint: L HIP PX - History obtained from History obtained from: Patient - History of Present Illness PD HPI LOW EXT INJURY LOCATION: Left, Hip, Buttock Type of injury: Fall (She says she was getting out of bed and misstepped and fell to the left. She denies any lightheadedness nor syncope. She was unable to get back up or move her hip because of pain.) Where injury occurred: Home (She says she lives in a trailer home which does have some steps to navigate. She uses a cane for balance. She does not have a walker usually.) Timing - onset: Today Timing - details: Abrupt onset, Still present Worsened by: Moving (the left hip, feels best in flexion), Palpating (more in the gluteal area) Associated symptoms: No: Weakness, Numbness Contributing factors: No: Anticoagulated Similar symptoms before: Has not had sx before Review of Systems Cardiac: denies: Chest pain / pressure GI: denies: Abdominal Pain Skin: denies: Abrasion (s), Laceration (s) Neurologic: denies: Altered mental status, Headache, Head injury PD PAST MEDICAL HISTORY - Past Medical History Cardiovascular: Hypertension, Coronary artery disease, Angina Respiratory: Emphysema Endocrine/Autoimmune: None GI: GERD, Other : Incontinence, Frequency HEENT: Chronic hearing loss Psych: None Musculoskeletal: Osteoarthritis, Osteoporosis Derm: None - Past Surgical History Past Surgical History: Yes Ortho: Hip replacement, Other /PATENT DRAFTER: Hysterectomy - Present Medications Home Medications: Ambulatory Orders Medication Instructions Recorded Confirmed Multivitamin [Multivitamins] 1 each PO DAILY 12/21/15 02/14/18 Nitroglycerin [Nitrostat] 0.4 mg SL ONCE PRN 12/21/15 04/01/19 Acetaminophen [Tylenol] 650 mg PO Q4H PRN 06/18/16 02/14/18 Ferrous Sulfate 90 mg PO DAILY 06/18/16 02/14/18 Metoprolol Succinate [Toprol Xl] 50 mg PO DAILY 06/18/16 04/01/19 Omeprazole 20 mg PO DAILY 06/18/16 04/01/19 Calcium Citrate/Magnesium/D3 630 mg PO DAILY 07/18/16 02/14/18 [Calcium Citrate Chewable Wafer] Donepezil [Aricept] 10 mg PO QPM 07/18/16 04/01/19 Potassium Chloride 20 meq PO DAILY 07/18/16 04/01/19 Potassium Chloride [K-Dur] 20 meq PO DAILY #7 tablet 02/13/18 02/14/18 Vancomycin [Vancocin] 125 mg PO QID #40 capsule 02/13/18 02/14/18 Lidocaine Patch 5% [Lidoderm Patch] 1 each TOP DAILY PRN #10 patch 02/14/18 - Allergies Allergies/Adverse Reactions: Allergies Allergy/AdvReac Type Severity Reaction Status Date / Time aspirin Allergy Severe Unknown Verified 04/01/19 09:55 Penicillins Allergy Severe Unknown Verified 04/01/19 09:55 bellpepper Allergy Severe Anaphylaxis Uncoded 02/14/18 11:07 eggplant Allergy Severe Anaphylaxis Uncoded 02/14/18 11:07 potato Allergy Severe Anaphylaxis Uncoded 02/14/18 11:07 tomato Allergy Severe Anaphylaxis Uncoded 02/14/18 11:07 - Social History Does the pt smoke?: No Smoking Status: Never smoker Does the pt have substance abuse?: No - Immunizations Immunizations are current?: No Immunizations: TDAP >10years/unknown PD ED PE NORMAL - Vitals Vital signs reviewed: Yes - General General: Alert and oriented X 3, No acute distress, Well developed/nourished - HEENT HEENT: Atraumatic - Neck Neck: Supple, no meningeal sign, No adenopathy - Cardiac Cardiac: RRR, No murmur - Respiratory Respiratory: Clear bilaterally, Other (no chestwall tenderness) - Abdomen Abdomen: Soft, Non tender - Back Back: No spinal TTP - Derm Derm: Normal color, Warm and dry - Extremities Extremities: Other (She has tenderness not so much in the anterior hip joint but in the lateral trochanter and some in the ischio ramus areas. She does feel best with her hip flexed. There is some pain with external rotation. There is no pain or tenderness with impaction testing at the upper leg.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, No motor deficit, No sensory deficit, Normal speech Results - Vitals Vitals: Vital Signs - 24 hr 04/01/19 04/01/19 04/01/19 09:32 10:56 12:00 Temperature 35.2 C L Heart Rate 78 54 L 65 Respiratory 13 12 17 Rate Blood Pressure 147/106 H 150/83 H 149/78 H O2 Saturation 96 100 99 04/01/19 12:49 Temperature 36.6 C Heart Rate 60 Respiratory 17 Rate Blood Pressure 147/72 H O2 Saturation 98 Oxygen O2 Source Room air - Rads (name of study) hip xray Radiology: Prelim report reviewed (no noted fractures) pelvic CT Radiology: Prelim report reviewed (contour defect in femoral neck; cannot exclude fracture. MRI recommended. ), See rad report PD MEDICAL DECISION MAKING - ED course Complexity details: re-evaluated patient (Her clinical findings are likely more suggestive of contusion. However she does have pain in the hip area with range of motion and some with weightbearing. Her CT is inconclusive and MRI is recommended to fully exclude nondisplaced fracture. Were unable to get an MRI this afternoon. I talked with the hospitalist to have the patient in observation until more definitive testing can be done as we would not want her to be walking on a nondisplaced fracture.), considered differential (She has some pain with ROM of the hip, and is tender laterally, but does hurt with rotation of the hip. She is able to bear weight after CT but hurts. MRI says no openings this afternoon. ), d/w patient Departure - Departure Disposition: ED Place in Observation Clinical Impression: Left hip pain, Abnormal finding on CT scan Accidental fall Qualifiers: Encounter type: initial encounter Qualified Code(s): W19.XXXA - Unspecified fall, initial encounter Condition: Stable Record reviewed to determine appropriate education?: Yes
--- NOTE | 2019-04-01 10:23 | XRAY Report ---
Reason: fall getting out of bed; lateral hip pain Procedure Date: 04/01/2019 Accession Number: [id number] / [id number] Procedure: XR - Hip w/Pelvis 2-3V LT CPT Code: FULL RESULT: EXAM: LEFT HIP RADIOGRAPHY EXAM DATE: 04/01/2019 09:57 AM. CLINICAL HISTORY: Fall getting out of bed; lateral hip pain. COMPARISON: HIP 1 VIEW LT 02/13/2018 11:39 AM. TECHNIQUE: 2 views. FINDINGS: Bones: Status post right total hip arthroplasty in unchanged configuration. The bones are qualitatively osteopenic; this limits evaluation for underlying fractures or masses. No fractures or bone lesion. Joints: There is joint space narrowing of the medial femoral acetabular joint space, moderate. Soft Tissues: Vascular calcifications. IMPRESSION: No left hip fracture is detected. Please note that osteopenia limits sensitivity. If the patient is nonweightbearing or clinical impression is materially discordant from the findings, consideration for CT is suggested. RADIA
[2019-04-01] MEDS ORDERED: ACETAMINOPHEN 325 MG TABLET PO STA (11:11)
[2019-04-01] MEDS ORDERED: NAPROXEN 250 MG TABLET PO STA (11:11)
--- NOTE | 2019-04-01 11:21 | CT Report ---
Reason: fall with left hip/pelvix pain Procedure Date: 04/01/2019 Accession Number: [id number] / [id number] Procedure: CT - PELVIS WO CPT Code: FULL RESULT: EXAM: CT BONY PELVIS WITHOUT CONTRAST EXAM DATE: 04/01/2019 10:43 AM. CLINICAL HISTORY: Fall with left hip/pelvis pain. COMPARISON: Radiographs 04/01/2019. TECHNIQUE: Thin-section axial images were acquired of the pelvis without contrast. Post-processing: Coronal and sagittal reformats. Other: None. In accordance with CT protocol optimization, one or more of the following dose reduction techniques were utilized for this exam: automated exposure control, adjustment of mA and/or KV based on patient size, or use of iterative reconstructive technique. FINDINGS: Bones: Diffuse osteopenia. Evaluation for nondisplaced fracture limited, particularly in the setting of osteopenia. Streak artifact from right hip prosthesis also limits evaluation. No discrete displaced fracture visualized. Subtle trabecular distortion projects transversely across the left femoral neck. Possible subtle cortical buckling at the lateral cortex (coronal image 51 of series 6). Subtle contour deformity at the anterior aspect with sacral segment with mild sclerosis, suggestive of old trauma. Lower lumbar spine: Moderate convex left scoliosis partially visualized measuring approximately 35 degrees from L1-L5 on the home health cna sequence. Mild to moderate degenerative disk and moderate to severe degenerative facet changes. Sacroiliac Joints: Mild degenerative changes bilaterally. Symphysis Pubis: Mild degenerative changes. Right Hip: Evaluation limited due to streak artifact from hip prosthesis. No gross adjacent lucency to suggest hardware loosening. No large joint effusion visualized. Left Hip: Mild degenerative changes. Moderate joint effusion. Musculature: Mild to moderate fatty atrophy posterior paraspinous musculature and gluteal muscles. Limited evaluation for muscle edema on CT. No gross muscle swelling visualized. Pelvic Cavity: Low-attenuation foci partially visualized in the right kidney measuring up to 2.4 cm, incompletely evaluated. Multiple foci of high attenuation partially visualized in the left kidney. Mild atherosclerosis. Numerous sigmoid diverticula. No gross free fluid or enlarged lymph node. Other: Subcutaneous soft tissues unremarkable. IMPRESSION: 1. No discrete displaced fracture visualized. Limited evaluation for nondisplaced fracture on CT, particularly in the setting of osteopenia. 2. Possible nondisplaced fracture left femoral neck versus artifact with moderate joint effusion. MRI could be performed to evaluate for bone marrow edema. If patient unable to undergo MRI, nuclear medicine bone scan could be performed. 3. Degenerative changes lower lumbar spine and bony pelvis. 4. Right total hip arthroplasty. RADIA
[2019-04-01] MEDS ORDERED: oxyCODONE 5 MG TABLET PO PRN (13:22)
[2019-04-01] MEDS ORDERED: ONDANSETRON 4 MG/2 ML VIAL IVP PRN (13:22)
[2019-04-01] MEDS ORDERED: ZOLPIDEM 5 MG TABLET PO PRN (13:22)
[2019-04-01] MEDS ORDERED: SODIUM CHLORIDE FLUSH 0.9% 10 ML SYRINGE IVP PRN (13:22)
[2019-04-01] MEDS ORDERED: MORPHINE 2 MG/ML CARPUJECT IVP PRN (13:22)
[2019-04-01] MEDS ORDERED: ACETAMINOPHEN 325 MG TABLET PO PRN (13:22)
[2019-04-01] MEDS ORDERED: NITROGLYCERIN SL 0.4 MG TABLET SL PRN (13:32)
[2019-04-01 13:55] LABS: BILIRUBIN,URINE NEGATIVE (NEGATIVE); GLUCOSE, URINE (UA) NEGATIVE (NEGATIVE); KETONES,URINE (UA) NEGATIVE (NEGATIVE); LEUKOCYTE ESTERASE, URINE NEGATIVE (NEGATIVE); NITRITE,URINE NEGATIVE (NEGATIVE); OCCULT BLOOD,URINE NEGATIVE (NEGATIVE); PH,URINE 6.5 PH (5.0-7.5); PROTEIN,URINE NEGATIVE (NEGATIVE); UROBILINOGEN,URINE 0.2 (NORMAL) E.U./dL (NORMAL)
[2019-04-01 14:00] LABS: CLARITY,URINE CLEAR (CLEAR)
[2019-04-01 14:02] LABS: BASOPHILS % (AUTO) 0.9 %; EOSINOPHILS # (AUTO) 0.1 10^3/uL (0.0-0.7); EOSINOPHILS % (AUTO) 1.9 %; HGB - HEMOGLOBIN 14.8 g/dL (12.0-16.0); LYMPHOCYTES # (AUTO) 1.5 10^3/uL (1.5-3.5); LYMPHOCYTES % (AUTO) 33.6 %; MEAN CORPUSCULAR HEMOGLOBIN 30.2 pg (27.0-31.0); MEAN CORPUSCULAR HGB CONC 33.4 g/dL (32.0-36.0); MEAN CORPUSCULAR VOLUME 90.5 fL (81.0-99.0); MEAN PLATELET VOLUME 8.8 fL (7.9-10.8); MONOCYTES # (AUTO) 0.3 10^3/uL (0.0-1.0); MONOCYTES % (AUTO) 7.2 %; NEUTROPHILS # (AUTO) 2.5 10^3/uL (1.5-6.6); NEUTROPHILS % (AUTO) 56.4 %; PLATELET MORPHOLOGY RARE GIANT PLATELETS (NORMAL); PLT - PLATELET COUNT 139 10^3/uL (130-450); RED BLOOD COUNT 4.91 10^6/uL (4.20-5.40); RED CELL DISTRIBUTION WIDTH 13.7 % (12.0-15.0); WHITE BLOOD COUNT 4.4 x10^3/uL (4.8-10.8)
[2019-04-01 14:26] LABS: ALBUMIN 4.6 g/dL (3.2-5.5); ALBUMIN/GLOBULIN RATIO 1.7 (1.0-2.2); BILIRUBIN,TOTAL 0.6 mg/dL (0.2-1.0); CALCIUM 9.2 mg/dL (8.5-10.3); CREATININE 0.5 mg/dL (0.4-1.0); TOTAL PROTEIN 7.3 g/dL (6.7-8.2)
[2019-04-01] MEDS ORDERED: hydrALAZINE INJ 20 MG/ML VIAL IVP PRN (14:46)
--- NOTE | 2019-04-01 15:28 | HISTORY & PHYSICAL EXAMINATION ---
Chief Complaint - Chief Complaint Chief Complaint: fall and left hip pain History of Present Illness - History of Present Illness HPI Comment/Other: Ms. Akers is a 83-yrs-old female with a PMH significant for chronic afib without blood thinner, aortic insufficiency, HTN, CAD, GERD, urinary frequency and incontinence, hard of hearing, osteoarthritis, osteoporosis, Dementia, hx of thrombocytopenia, who present ER complain of left hip pain. Pt is some confused and she has hx of dementia. pt state she want to have surgery if it is confirmed she had bone fracture. She state she was getting out of bed and mis-stepped and fell to the left. She denies other injuries. She denies any lightheadedness nor syncope nor loss of conscience. She state she feel sharp left hip pain when she moves. She was unable to get back up. Xray did not detect fracture. CT of hip reveals possible nondisplaced fracture left femoral neck versus artifact with moderate joint effusion. MRI is order to clarify. Orthopedist is called. History - Past Medical History Cardiovascular: reports: Hypertension, Coronary artery disease, Angina Respiratory: reports: Emphysema Neuro: reports: Alzhiemer's Endocrine/Autoimmune: reports: None GI: reports: GERD, Other : reports: Incontinence, Frequency HEENT: reports: Chronic hearing loss Psych: reports: None Musculoskeletal: reports: Osteoarthritis, Osteoporosis Derm: reports: None MRSA Hx?: No - Past Surgical History Ortho: reports: Hip replacement, Other /[facility]: reports: Hysterectomy - Family & Social History Family History Comment/Other: pt has two son, older one is living with pt, another is living at [facility]. Social History Notes: pt denies hx of cigarette smoker, alcohol and drug abuse. Meds/Allgy - Home Medications Home Medications: Ambulatory Orders Medication Instructions Recorded Confirmed Multivitamin [Multivitamins] 1 each PO DAILY 12/21/15 04/01/19 Nitroglycerin [Nitrostat] 0.4 mg SL ONCE PRN 12/21/15 04/01/19 Acetaminophen [Tylenol] 650 mg PO Q4H PRN 06/18/16 04/01/19 Ferrous Sulfate 90 mg PO DAILY 06/18/16 02/14/18 Metoprolol Succinate [Toprol Xl] 50 mg PO DAILY 06/18/16 04/01/19 Omeprazole 20 mg PO DAILY 06/18/16 04/01/19 Donepezil [Aricept] 10 mg PO QPM 07/18/16 04/01/19 Potassium Chloride 20 meq PO DAILY 07/18/16 04/01/19 Calcium Carbonate/Vitamin D3 1 tab PO DAILY 04/01/19 04/01/19 [Calcium 600 + Vit D 400 Tablet] PARoxetine [Paxil] 10 mg PO DAILY 04/01/19 04/01/19 - Allergies Allergies/Adverse Reactions: Allergies Allergy/AdvReac Type Severity Reaction Status Date / Time aspirin Allergy Severe Unknown Verified 04/01/19 09:55 Eggplant Allergy Severe Anaphylaxis Verified 04/01/19 14:21 green pepper Allergy Severe Anaphylaxis Verified 04/01/19 13:28 Penicillins Allergy Severe Unknown Verified 04/01/19 09:55 potato Allergy Severe Anaphylaxis Verified 04/01/19 13:28 tomato Allergy Severe Anaphylaxis Verified 04/01/19 13:28 Review of Systems - Constitutional Constitutional: denies: Fatigue, Fever, Chills, Malaise, Weakness, Poor appetite, Diaphoresis, Night sweats - Eyes Eyes: denies: Pain, Irritation, Amaurosis, Blurred vision, Spots in vision, Field loss, Vision loss, Dipolpia - Ears, Nose & Throat Ears, Nose & Throat: denies: Ear pain, Hearing loss, Vertigo, Nasal pain, Nasal discharge, Nosebleeds, Nasal obstruction, Nasal congestion, Postnasal drainage, Sore throat, Mouth lesions, Bleeding gums - Cardiovascular Cariovascular: denies: Irregular heart rate, Palpitations, Chest pain, Edema, Lightheadedness, Syncope, Exertional dyspnea, Decr. exercise tolerance - Respiratory Respiratory: denies: Cough, Sputum production, Wheezing, Snoring, Hemoptysis, Orthopnea, SOB at rest, SOB with exertion - Gastrointestinal Gastrointestinal: denies: Abdominal pain, Abdominal distention, Constipation, Diarrhea, Change in bowel habits, Rectal bleeding, Black stools, Bloody stools, Nausea, Vomiting, Bile emesis, Reece blood emesis, Coffee grounds emesis, Reflux/heartburn - Genitourinary Genitourinary: denies: Dysuria, Frequency, Urgency, Hematuria, Incontinence, Fla nk pain, Nocturia, Urethral discharge - Musculoskeletal Musculoskeletal: reports: Limited range of motion, Joint pain. denies: Muscle pain, Back pain, Muscle aches, Stiffness, Muscle weakness, Gout - Integumentary Integumentary: denies: Rash, Pruritis, Lesions, Dryness, Lumps, Acne, Pigment changes, Nail changes - Neurological Neurological: denies: General weakness, Focal weakness, Headache, Dizziness, Numbness, Memory problems, Pre-existing deficit, Abnormal gait, Seizures, In coordination, Slurred speech - Psychiatric Psychiatric: denies: Depression, Anxiety, Suicidal, Delusions, Hallucinations, Homicidal - Endocrine Endocrine: denies: Polyuria, Polydypsia, Polyphagia, Intolerance to cold - Hematologic/Lymphatic Hematologic/Lymphatic: denies: Anemia, Bruising, Petechiae, Blood clots, Lymphadenopathy, Bleeding tendencies Exam - Vital Signs Vital Signs: Vital Signs x48h Temp Pulse Pulse Resp BP BP Pulse Ox 04/01/19 14:39 36.6 C 70 16 174/56 H 99 04/01/19 14:21 71 15 168/85 H 97 04/01/19 12:49 36.6 C 60 17 147/72 H 98 04/01/19 12:00 65 17 149/78 H 99 04/01/19 10:56 54 L 12 150/83 H 100 04/01/19 09:32 35.2 C L 78 13 147/106 H 96 - Physical Exam General Appearance: positive: No acute distress, Alert. negative: Lethargic Eyes Bilateral: positive: Normal inspection, PERRL, No lid inflammation, Conjunctivae nml ENT: positive: ENT inspection nml, Pharynx nml, No signs of dehydration. negative: Purulent nasal drainage, Pharyngeal erythema, Oral lesions Neck: positive: Nml inspection, Thyroid nml, No JVD, Trachea midline. negative: Thyromegaly, Lymphadenopathy (R), Lymphadenopathy (L), Stiff neck, Swelling/bruising, Tracheal deviation Respiratory: positive: Chest non-tender, No respiratory distress, Breath sounds nml. negative: Wheezes, Rales, Rhonchi Cardiovascular: positive: Regular rate & rhythm, No murmur, No gallop. negative: Irregularly irregular, Extrasystoles, Tachycardia, Bradycardia, JVD present, Systolic murmur, Diastolic murmur Peripheral Pulses: positive: 2+ Abdomen: positive: Non-tender, No organomegaly, Nml bowel sounds, No distention. negative: Tenderness, Guarding, Rebound Back: positive: Nml inspection. negative: CVA tenderness (R), CVA tenderness (L) Skin: positive: Color nml, No rash, Warm, Dry. negative: Cyanosis, Diaphoresis, Pallor Extremities: negative: Non-tender, Full ROM, Calf tenderness, Joint swelling, Cesia's sign/cords Neurologic/Psychiatric: positive: Sensation nml. negative: Weakness, Sensory loss, Facial droop, Slurred/abnml speech, Depressed mood/affect Sepsis Event Note (H) - Evaluation Current Stage of Sepsis: Ruled out Conclusion/Plan - Problem List (1) Left hip pain Conclusion/Plan: pt had a fall, she report sharp pain when she manager fitness her left leg and hip. but Xray and CT did not confirm pt had left hip fracture yet. MRI of left hip consult with orthopedist, Dr. Foss. state if we still can not confirm if there is fracture, then repeat CT again. pain control (2) Dementia Conclusion/Plan: pt present some confused,called pt's son, it is pt's baseline support Qualifiers: Dementia type: unspecified type Dementia behavioral disturbance: without behavioral disturbance Qualified Code(s): F03.90 - Unspecified dementia without behavioral disturbance (3) HTN (hypertension) Conclusion/Plan: reconcile home BP meds, add hydralazine as PRN (4) Hx of coronary artery disease Conclusion/Plan: There is no blood thinner at pt's home meds list. Pt has Lovenox for DVT prophylaxis. Troponin is negative, pt denies chest pain. Tele and vital monitor (5) Osteoporosis Conclusion/Plan: pt had frequency fall, hx of osteoporosis Vitamin D3, calcium pill fall precaution - Lab Results Fish Bones: 04/01/19 13:40 04/01/19 13:40 Core Measures - Anticipated LOS I expect patient to be DC'd or transferred within 96 hours.: Yes - DVT/VTE - Prophylaxis VTE/DVT Device ordered at admit?: Yes VTE/DVT Prophylaxis med ordered at admit?: Yes
[2019-04-01] MEDS: METOPROLOL SUCCINATE 50 MG TABLET PO SCH (15:54)
[2019-04-01 15:55] LABS: PT - PROTHROMBIN TIME 11.6 secs (9.9-12.6)
[2019-04-01] MEDS ORDERED: POTASSIUM CHLORIDE 20 MEQ TABLET PO ONE (17:00)
[2019-04-01] MEDS: SODIUM CHLORIDE FLUSH 0.9% 10 ML SYRINGE IVP SCH (17:23)
--- NOTE | 2019-04-01 20:43 | MRI Report ---
Reason: HIP PAIN. R/O FRACTURE Procedure Date: 04/01/2019 Accession Number: [id number] / [id number] Procedure: MRI - Hip LT W/O CPT Code: FULL RESULT: EXAM: LEFT HIP MRI WITHOUT CONTRAST EXAM DATE: 04/01/2019 08:28 PM. CLINICAL HISTORY: HIP PAIN. R/O FRACTURE. COMPARISON: PELVIS W/O 04/01/2019 10:39 AM. TECHNIQUE: Multiplanar, multisequence T1-weighted and fluid-sensitive, small [id number] sequences of the hip and large [id number] sequences of the pelvis without contrast. Other: None. FINDINGS: Bones: Right hip arthroplasty with local metallic artifact as expected. Left Hip: Alignment normal. No fracture or marrow edema. Mild degenerative joint disease and small osteophytes and cartilage thinning. Other Joints: Mild degenerative changes in the lower lumbar spine, symphysis pubis and SI joints. Musculature: No edema or fatty atrophy. The gluteus medius and minimus tendons are normal. The visualized hamstring tendons are normal. The ischiofemoral space is normal. Pelvic Cavity: The visualized viscera are unremarkable. No lymphadenopathy. No free fluid in the pelvis. Other: The visualized sciatic nerves are unremarkable. No bursitis. The subcutaneous tissues are unremarkable. Moderate distention of the stomach, partially visualized. IMPRESSION: 1. No evidence of left hip or pelvic fracture. 2. Right hip arthroplasty with local metallic artifact as expected. 3. No mass or fluid collection. No inflammatory process in the pelvis. RADIA
[2019-04-01] MEDS: FAMOTIDINE 20 MG TABLET PO SCH (20:55)
[2019-04-01] MEDS ORDERED: DONEPEZIL 5 MG TABLET PO SCH (21:00)
[2019-04-02] MEDS: SODIUM CHLORIDE FLUSH 0.9% 10 ML SYRINGE IVP SCH ×3 (00:25→15:20)
[2019-04-02] MEDS ORDERED: SODIUM CHLORIDE 0.9% 1,000 ML IV SCH (05:00)
[2019-04-02 05:18] LABS: BASOPHILS # (AUTO) 0.1 10^3/uL (0.0-0.1); BASOPHILS % (AUTO) 1.1 %; EOSINOPHILS # (AUTO) 0.2 10^3/uL (0.0-0.7); EOSINOPHILS % (AUTO) 3.6 %; HGB - HEMOGLOBIN 13.4 g/dL (12.0-16.0); LYMPHOCYTES # (AUTO) 1.6 10^3/uL (1.5-3.5); LYMPHOCYTES % (AUTO) 36.5 %; MEAN CORPUSCULAR HEMOGLOBIN 30.3 pg (27.0-31.0); MEAN CORPUSCULAR HGB CONC 33.2 g/dL (32.0-36.0); MEAN PLATELET VOLUME 9.5 fL (7.9-10.8); MONOCYTES # (AUTO) 0.4 10^3/uL (0.0-1.0); MONOCYTES % (AUTO) 8.5 %; NEUTROPHILS # (AUTO) 2.3 10^3/uL (1.5-6.6); NEUTROPHILS % (AUTO) 50.3 %; PLT - PLATELET COUNT 127 10^3/uL (130-450); RED BLOOD COUNT 4.43 10^6/uL (4.20-5.40); WHITE BLOOD COUNT 4.5 x10^3/uL (4.8-10.8)
[2019-04-02 05:37] LABS: ALBUMIN 3.8 g/dL (3.2-5.5); ALBUMIN/GLOBULIN RATIO 1.7 (1.0-2.2); BILIRUBIN,TOTAL 0.7 mg/dL (0.2-1.0); CALCIUM 8.9 mg/dL (8.5-10.3); CREATININE 0.4 mg/dL (0.4-1.0); TOTAL PROTEIN 6.1 g/dL (6.7-8.2)
[2019-04-02] MEDS ORDERED: MULTIVITAMIN TABLET PO SCH (08:00)
[2019-04-02] MEDS ORDERED: POTASSIUM CHLORIDE 20 MEQ TABLET PO SCH (08:00)
--- NOTE | 2019-04-02 08:00 | ANESTHESIA ---
Pre-Anesthesia VS, & Labs - Diagnosis Left hip fracture - Procedure Left hip pinning Vital Signs: Temp Pulse Resp BP Pulse Ox 36.4 C L 68 97 H 151/77 H 96 04/02/19 04:31 04/02/19 04:31 04/02/19 04:31 04/02/19 04:16 04/02/19 04:31 Height 5 ft 5 in Weight (kg) 47.63 kg Body Mass Index 17.4 - NPO >8 hours - Is Patient ?: No - Lab Results Current Lab Results: Laboratory Tests 04/02/19 04:20: Sodium 141, Potassium 3.8, Chloride 107, Carbon Dioxide 26, Anion Gap 8.0, BUN 12, Creatinine 0.4, Estimated GFR (MDRD) 153, Glucose 101 H, Calcium 8.9, Magnesium 2.0, Total Bilirubin 0.7, AST 20, ALT 11, Alkaline Phosphatase 47, Total Protein 6.1 L, Albumin 3.8, Globulin 2.3, Albumin/Globulin Ratio 1.7 04/02/19 04:20: WBC 4.5 L, RBC 4.43, Hgb 13.4, Hct 40.3, MCV 91.0, MCH 30.3, MCHC 33.2, RDW 14.0, Plt Count 127 L, MPV 9.5, Neut # (Auto) 2.3, Lymph # (Auto) 1.6, [place] # (Auto) 0.4, Eos # (Auto) 0.2, Baso # (Auto) 0.1, Absolute Nucleated RBC 0.00, Nucleated RBC % 0.0 04/01/19 16:30: Troponin I < 0.04 04/01/19 13:40: PT 11.6, INR 1.0 04/01/19 13:40: Sodium 144, Potassium 3.0 L, Chloride 102, Carbon Dioxide 27, Anion Gap 15.0 H, BUN 9, Creatinine 0.5, Estimated GFR (MDRD) 118, Glucose 108 H , Calcium 9.2, Magnesium 2.0, Total Bilirubin 0.6, AST 24, ALT 14, Alkaline Phosphatase 64, Total Protein 7.3, Albumin 4.6, Globulin 2.7, Albumin/Globulin Ratio 1.7 04/01/19 13:40: WBC 4.4 L, RBC 4.91, Hgb 14.8, Hct 44.5, MCV 90.5, MCH 30.2, MCHC 33.4, RDW 13.7, Plt Count 139, MPV 8.8, Neut # (Auto) 2.5, Lymph # (Auto) 1.5, [place] # (Auto) 0.3, Eos # (Auto) 0.1, Baso # (Auto) 0.0, Absolute Nucleated RBC 0.00, Nucleated RBC % 0.0, Platelet Morphology RARE GIANT PLATELETS Lab results reviewed: Yes Fish Bones: 04/02/19 04:20 04/02/19 04:20 Home Medications and Allergies Home Medications: Ambulatory Orders RX: Calcium Carbonate/Vitamin D3 [Calcium 600-Vit D3 400 Tablet] 1 tab PO DAILY 04/01/19 RX: PARoxetine [Paxil] 10 mg PO DAILY 04/01/19 Active Medications Acetaminophen (Tylenol) 650 mg PO Q4HR PRN PRN Reason: Pain 1 to 4 Calcium Carbonate/Glycine ([place]-500) 500 mg PO DAILY [facility] Cholecalciferol (Vitamin D3) 2,000 unit PO DAILY [facility] Donepezil HCl (Aricept) 10 mg PO QPM [facility] Last Admin: 04/01/19 20:55 Dose: 10 mg Enoxaparin Sodium (Lovenox) 40 mg SUBQ DAILY [facility] Famotidine (Pepcid) 20 mg PO BID [facility] Last Admin: 04/01/19 20:55 Dose: 20 mg Hydralazine HCl (Apresoline Inj) 10 mg IVP QID PRN PRN Reason: Hypertensive Emergency Metoprolol Succinate (Toprol Xl) 50 mg PO DAILY [facility] Last Admin: 04/01/19 15:54 Dose: 50 mg Morphine Sulfate (Morphine (Carpuject)) 2 mg IVP Q2H PRN PRN Reason: Pain 8 to 10 Multivitamins (Theragran) 1 tab PO DAILYWM [facility] Nitroglycerin (Nitrostat) 0.4 mg SL Q5M PRN PRN Reason: Chest Pain Ondansetron HCl (Zofran Inj) 4 mg IVP Q6HR PRN PRN Reason: Nausea / Vomiting Oxycodone HCl (Roxicodone) 5 mg PO Q4HR PRN PRN Reason: Pain 5 to 7 Paroxetine HCl (Paxil) 10 mg PO DAILY [facility] Polyethylene Glycol (Miralax) 17 gm PO DAILY [facility] Potassium Chloride (K-Dur) 20 meq PO DAILYWM [facility] Sodium Chloride (Normal Saline Flush 0.9%) 10 ml IVP PRN PRN PRN Reason: NEEDED PER PROVIDER ORDERS Sodium Chloride (Normal Saline Flush 0.9%) 10 ml IVP 0100,0900,1700 [facility] Last Admin: 04/02/19 00:25 Dose: 10 ml Zolpidem Tartrate (Ambien) 5 mg PO QPM PRN PRN Reason: Insomnia Last Admin: 04/02/19 00:25 Dose: 5 mg Multivitamin [Multivitamins] 1 each PO DAILY 12/21/15 Nitroglycerin [Nitrostat] 0.4 mg SL ONCE PRN 12/21/15 Acetaminophen [Tylenol] 650 mg PO Q4H PRN 06/18/16 Ferrous Sulfate 90 mg PO DAILY 06/18/16 Metoprolol Succinate [Toprol Xl] 50 mg PO DAILY 06/18/16 Omeprazole 20 mg PO DAILY 06/18/16 Donepezil [Aricept] 10 mg PO QPM 07/18/16 Potassium Chloride 20 meq PO DAILY 07/18/16 Calcium Carbonate/Vitamin D3 [Calcium 600 + Vit D 400 Tablet] 1 tab PO DAILY 04/01/19 PARoxetine [Paxil] 10 mg PO DAILY 04/01/19 Allergies/Adverse Reactions: Allergies Allergy/AdvReac Type Severity Reaction Status Date / Time aspirin Allergy Severe Unknown Verified 04/01/19 09:55 Eggplant Allergy Severe Anaphylaxis Verified 04/01/19 14:21 green pepper Allergy Severe Anaphylaxis Verified 04/01/19 13:28 Penicillins Allergy Severe Unknown Verified 04/01/19 09:55 potato Allergy Severe Anaphylaxis Verified 04/01/19 13:28 tomato Allergy Severe Anaphylaxis Verified 04/01/19 13:28 Anes History & Medical History - Anesthetic History Anesthesia Complications: reports: No previous complications - Medical History Cardiovascular: reports: Hypertension, Coronary artery disease, Angina Pulmonary: reports: Emphysema Gastrointestinal: reports: GERD, Other Urinary: reports: Incontinence, Frequency Neuro: reports: Alzhiemer's Musculoskeletal: reports: Osteoarthritis, Osteoporosis Endocrine/Autoimmune: reports: None Blood Disorders: reports: None Skin: reports: None Smoking Status: Never smoker - Surgical History Gynecologic: Hysterectomy Orthopedic: Hip replacement, Other Exam General: Cooperative Dental: WNL Plan Anesthesia Type: General Consent for Procedure(s) Verified and Reviewed: Yes Code Status: Attempt Resuscitation ASA classification: 3-Severe systemic disease Is this case an emergency?: No
--- NOTE | 2019-04-02 08:12 | PROVIDER PROGRESS NOTE ---
Subjective - Prog Note Date Prog Note Date: 04/02/19 Prog Note Time: 08:10 - Subjective Pt reports feeling: Improved (Patient STHH a fall yesterday, complaining of severe left hip pain. Unable to weightbear. Overfnight is much improved. Transferring from bed to chair now.) Objective - Vital Signs/Intake & Output Vital Signs: Vital Signs x48h Temp Pulse Pulse Resp BP Pulse Ox 04/02/19 04:31 36.4 C L 68 97 H 96 04/02/19 04:16 36.4 C L 68 16 151/77 H 96 Intake & Output: Intake & Output 03/30/19 03/31/19 04/01/19 04/02/19 23:59 23:59 23:59 23:59 Intake Total 350 113.888 Balance 350 113.888 - Lab Results Fish Bones: 04/02/19 04:20 04/02/19 04:20 Other Labs: Lab Results x24hrs 04/02/19 04/02/19 04/01/19 Range/Units 04:20 04:20 16:30 WBC 4.5 L (4.8-10.8) x10^3/uL RBC 4.43 (4.20-5.40) 10^6/uL Hgb 13.4 (12.0-16.0) g/dL Hct 40.3 (37.0-47.0) % MCV 91.0 (81.0-99.0) fL MCH 30.3 (27.0-31.0) pg MCHC 33.2 (32.0-36.0) g/dL RDW 14.0 (12.0-15.0) % Plt Count 127 L (130-450) 10^3/uL MPV 9.5 (7.9-10.8) fL Neut # (Auto) 2.3 (1.5-6.6) 10^3/uL Lymph # (Auto) 1.6 (1.5-3.5) 10^3/uL [place] # (Auto) 0.4 (0.0-1.0) 10^3/uL Eos # (Auto) 0.2 (0.0-0.7) 10^3/uL Baso # (Auto) 0.1 (0.0-0.1) 10^3/uL Absolute Nucleated RBC 0.00 x10^3/uL Nucleated RBC % 0.0 /100WBC Platelet Morphology (NORMAL) PT (9.9-12.6) secs INR (0.8-1.2) Sodium 141 (135-145) mmol/L Potassium 3.8 (3.5-5.0) mmol/L Chloride 107 (101-111) mmol/L Carbon Dioxide 26 (21-32) mmol/L Anion Gap 8.0 (6-13) BUN 12 (6-20) mg/dL Creatinine 0.4 (0.4-1.0) mg/dL Estimated GFR (MDRD) 153 (>89) Glucose 101 H (70-100) mg/dL Calcium 8.9 (8.5-10.3) mg/dL Magnesium 2.0 (1.7-2.8) mg/dL Total Bilirubin 0.7 (0.2-1.0) mg/dL AST 20 (10-42) IU/L ALT 11 (10-60) IU/L Alkaline Phosphatase 47 (42-121) IU/L Troponin I < 0.04 (<0.49) ng/mL Total Protein 6.1 L (6.7-8.2) g/dL Albumin 3.8 (3.2-5.5) g/dL Globulin 2.3 (2.1-4.2) g/dL Albumin/Globulin Ratio 1.7 (1.0-2.2) Urine Color Urine Clarity (CLEAR) Urine pH (5.0-7.5) PH Ur Specific [place] (1.002-1.030) Urine Protein (NEGATIVE) mg/dL Urine Glucose (UA) (NEGATIVE) mg/dL Urine Ketones (NEGATIVE) mg/dL Urine Occult Blood (NEGATIVE) Urine Nitrite (NEGATIVE) Urine Bilirubin (NEGATIVE) Urine Urobilinogen (NORMAL) E.U./dL Ur Leukocyte Esterase (NEGATIVE) Ur Microscopic Review Urine Culture Comments 04/01/19 04/01/19 04/01/19 Range/Units 13:40 13:40 13:40 WBC (4.8-10.8) x10^3/uL RBC (4.20-5.40) 10^6/uL Hgb (12.0-16.0) g/dL Hct (37.0-47.0) % MCV (81.0-99.0) fL MCH (27.0-31.0) pg MCHC (32.0-36.0) g/dL RDW (12.0-15.0) % Plt Count (130-450) 10^3/uL MPV (7.9-10.8) fL Neut # (Auto) (1.5-6.6) 10^3/uL Lymph # (Auto) (1.5-3.5) 10^3/uL [place] # (Auto) (0.0-1.0) 10^3/uL Eos # (Auto) (0.0-0.7) 10^3/uL Baso # (Auto) (0.0-0.1) 10^3/uL Absolute Nucleated RBC x10^3/uL Nucleated RBC % /100WBC Platelet Morphology (NORMAL) PT 11.6 (9.9-12.6) secs INR 1.0 (0.8-1.2) Sodium 144 (135-145) mmol/L Potassium 3.0 L (3.5-5.0) mmol/L Chloride 102 (101-111) mmol/L Carbon Dioxide 27 (21-32) mmol/L Anion Gap 15.0 H (6-13) BUN 9 (6-20) mg/dL Creatinine 0.5 (0.4-1.0) mg/dL Estimated GFR (MDRD) 118 (>89) Glucose 108 H (70-100) mg/dL Calcium 9.2 (8.5-10.3) mg/dL Magnesium 2.0 (1.7-2.8) mg/dL Total Bilirubin 0.6 (0.2-1.0) mg/dL AST 24 (10-42) IU/L ALT 14 (10-60) IU/L Alkaline Phosphatase 64 (42-121) IU/L Troponin I (<0.49) ng/mL Total Protein 7.3 (6.7-8.2) g/dL Albumin 4.6 (3.2-5.5) g/dL Globulin 2.7 (2.1-4.2) g/dL Albumin/Globulin Ratio 1.7 (1.0-2.2) Urine Color YELLOW Urine Clarity CLEAR (CLEAR) Urine pH 6.5 (5.0-7.5) PH Ur Specific [place] 1.010 (1.002-1.030) Urine Protein NEGATIVE (NEGATIVE) mg/dL Urine Glucose (UA) NEGATIVE (NEGATIVE) mg/dL Urine Ketones NEGATIVE (NEGATIVE) mg/dL Urine Occult Blood NEGATIVE (NEGATIVE) Urine Nitrite NEGATIVE (NEGATIVE) Urine Bilirubin NEGATIVE (NEGATIVE) Urine Urobilinogen 0.2 (NORMAL) (NORMAL) E.U./dL Ur Leukocyte Esterase NEGATIVE (NEGATIVE) Ur Microscopic Review NOT INDICATED Urine Culture Comments NOT INDICATED 04/01/19 Range/Units 13:40 WBC 4.4 L (4.8-10.8) x10^3/uL RBC 4.91 (4.20-5.40) 10^6/uL Hgb 14.8 (12.0-16.0) g/dL Hct 44.5 (37.0-47.0) % MCV 90.5 (81.0-99.0) fL MCH 30.2 (27.0-31.0) pg MCHC 33.4 (32.0-36.0) g/dL RDW 13.7 (12.0-15.0) % Plt Count 139 (130-450) 10^3/uL MPV 8.8 (7.9-10.8) fL Neut # (Auto) 2.5 (1.5-6.6) 10^3/uL Lymph # (Auto) 1.5 (1.5-3.5) 10^3/uL [place] # (Auto) 0.3 (0.0-1.0) 10^3/uL Eos # (Auto) 0.1 (0.0-0.7) 10^3/uL Baso # (Auto) 0.0 (0.0-0.1) 10^3/uL Absolute Nucleated RBC 0.00 x10^3/uL Nucleated RBC % 0.0 /100WBC Platelet Morphology RARE GIANT PLATELETS (NORMAL) PT (9.9-12.6) secs INR (0.8-1.2) Sodium (135-145) mmol/L Potassium (3.5-5.0) mmol/L Chloride (101-111) mmol/L Carbon Dioxide (21-32) mmol/L Anion Gap (6-13) BUN (6-20) mg/dL Creatinine (0.4-1.0) mg/dL Estimated GFR (MDRD) (>89) Glucose (70-100) mg/dL Calcium (8.5-10.3) mg/dL Magnesium (1.7-2.8) mg/dL Total Bilirubin (0.2-1.0) mg/dL AST (10-42) IU/L ALT (10-60) IU/L Alkaline Phosphatase (42-121) IU/L Troponin I (<0.49) ng/mL Total Protein (6.7-8.2) g/dL Albumin (3.2-5.5) g/dL Globulin (2.1-4.2) g/dL Albumin/Globulin Ratio (1.0-2.2) Urine Color Urine Clarity (CLEAR) Urine pH (5.0-7.5) PH Ur Specific [place] (1.002-1.030) Urine Protein (NEGATIVE) mg/dL Urine Glucose (UA) (NEGATIVE) mg/dL Urine Ketones (NEGATIVE) mg/dL Urine Occult Blood (NEGATIVE) Urine Nitrite (NEGATIVE) Urine Bilirubin (NEGATIVE) Urine Urobilinogen (NORMAL) E.U./dL Ur Leukocyte Esterase (NEGATIVE) Ur Microscopic Review Urine Culture Comments - Diagnostic Imaging Diagnostic Imaging Comments: XR show no hip fracture CT scan show possible hip fx MRI scan show no acute fracture - Other Results/Comments Other Results/Comments: EXAM: Non tender hip. No pain with hip ROM. N/V ok distally. Sepsis Event Note (H) - Evaluation Current Stage of Sepsis: Ruled out Assessment/Plan - Problem List (1) Left hip pain Impression: Improved PLAN: Mobiilize as tolerated. Treat synptomatically. Reconsult as needed.
--- NOTE | 2019-04-02 08:53 | CONSULTATION NOTE ---
DATE OF SERVICE: 04/02/2019 Physician: Darien Foss MD REFERRING PROVIDER: WILLIAM Diaz, of the medical service. CHIEF COMPLAINT: "My left hip hurts." HISTORY OF PRESENT ILLNESS: Patient is an 83-year-old, female, mildly demented, apparently had a fall on the day of her admission, sustaining an injury to her left hip. Previously, she had a right total hip done in the past. Patient complained of persistent left hip pain and tenderness. S he was unable to weight-bear, due to pain. Her workup, including plain x-rays of her left hip, showe d osteopenia, but no obvious fractures present. CT scan was then performed and was somewhat limited due to her osteopenia, but there was a possibility of there being a fracture on that study. Patient was admitted to the hospital for further management of her hip symptoms. An MRI scan was scheduled o n the evening of her admission. This study, however, did not show any evidence of an acute hip fract ure. On the morning after her admission, she was not complaining of as much pain to her hip. Clinically, she was much improved and apparently was able to transfer from bed to chair with minimal symptoms. PHYSICAL EXAMINATION: Patient's left hip shows no significant bruising, swelling or any focal tender ness on palpation. She has good range of motion of the hip in flexion and extension, without pain. Patient moves her toes well on command. Sensation appears to be intact throughout. Good capillary f illing noted as well. Review of all of the studies that were done over the last 24 hours was as noted above. A plain x-ray showed osteopenia, but no fractures. CT scan was equivocal for a possible nondisplaced femoral neck fracture, left side. MRI scan showed no evidence of an acute left hip fracture. ASSESSMENT: Status post contusion to the left hip--by exam and per radiographic studies. PLAN: In view of patient's improved clinical presentation over the last 12 hours, we would order phy sical therapy and advance weightbearing ambulation with a walker, weightbearing as tolerated on the l eft side. Treat her hip symptoms symptomatically. Please reconsult us as needed, should her symptom s persist or worsen on her admission. TD: 04/02/2019 08:23
[2019-04-02] MEDS ORDERED: CHOLECALCIFEROL 1,000 UNIT TABLET PO SCH (09:00)
[2019-04-02] MEDS ORDERED: POLYETHYLENE GLYCOL 3350 17 GM PACKET PO SCH (09:00)
[2019-04-02] MEDS ORDERED: METOPROLOL SUCCINATE 50 MG TABLET PO SCH (09:00)
[2019-04-02] MEDS ORDERED: PARoxetine 10 MG TABLET PO SCH (09:00)
[2019-04-02] MEDS ORDERED: CALCIUM CARB (OYSTER SHELL) 500 MG TABLET PO SCH (09:00)
[2019-04-02] MEDS ORDERED: CALCIUM CARBONATE CHEW 500 MG TABLET PO PRN (09:07)
[2019-04-02] MEDS: METOPROLOL SUCCINATE 50 MG TABLET PO SCH (09:27)
[2019-04-02] MEDS: ENOXAPARIN 40 MG/0.4 ML SYRINGE SUBQ SCH ×2 (09:28→10:23)
[2019-04-02] MEDS: FAMOTIDINE 20 MG TABLET PO SCH (09:28)
[2019-04-02] MEDS ORDERED: ONDANSETRON ODT 4 MG TABLET TL PRN (10:12)
[2019-04-02] MEDS ORDERED: PANTOPRAZOLE 40 MG TABLET PO SCH (14:00)
[2019-04-02 15:56] VITALS: BP 141/76
[2019-04-02] MEDS ORDERED: amLODIPine 5 MG TABLET PO SCH (15:59)
--- NOTE | 2019-04-02 16:08 | Discharge Plan ---
Discharge Plan Disposition: Home, Self Care Condition: Poor Prescriptions: Ondansetron Odt [Zofran Odt] 4 mg TL Q6HR PRN #15 tablet PRN Reason: Nausea / Vomiting amLODIPine [Norvasc] 2.5 mg PO DAILY #10 tablet Calcium Carbonate [Tums (Calcium Carbonate 500mg)] 500 mg PO BID PRN #10 tablet PRN Reason: Heartburn Cholecalciferol (Vitamin D3) [Vitamin D3] 2,000 unit PO DAILY #10 capsule Diet: Regular Activity Restrictions: Activity as Tolerated Shower Restrictions: No (fall precaution, caregiver closely monitor) Instruction Topics: Ondansetron tablets, GERD, Amlodipine, Cholecalciferol c apsules tablets or chewable dosage forms Additional Instructions or Follow Up instructions: you may followup your PCP in one week. You have no hip fracture in the image study, and you walked with PT. You are arranged to have home health PT, and The time of home caregiver for you is increased. Should your symptoms return or worsen, you may present ER, call 911 or your PCP for help Follow-Up Care: Home Health - PT No Smoking: If you smoke, Please STOP! Call for help. Follow-up with: Georgina Fuentes PA-C [Primary Care Provider] -
--- NOTE | 2019-04-02 16:25 | DISCHARGE SUMMARY ---
"Discharge Summary Discharge Date: 04/02/19 Discharging Provider: [place] Primary Care Provider: Georgina Madrigal Condition at Discharge: Poor Discharge Disposition: 01 Home, Self Care Discharge Facility Name: home - DIAGNOSES Admission Diagnoses: (1) Left hip pain (2) Dementia (3) HTN (hypertension) (4) Hx of coronary artery disease (5) Osteoporosis Discharge Diagnoses with Status of Each Condition: (1) Left hip pain (2) Dementia (3) HTN (hypertension) (4) Hx of coronary artery disease (5) Osteoporosis (6) GERD/heart burn with nausea - HPI History of Present Illness: Ms. Akers is a 83-yrs-old female with a PMH significant for chronic afib without blood thinner, aortic insufficiency, HTN, CAD, GERD, urinary frequency and incontinence, hard of hearing, osteoarthritis, osteoporosis, Dementia, hx of thrombocytopenia, who present ER complain of left hip pain. Pt is some confused and she has hx of dementia. pt state she want to have surgery if it is confirmed she had bone fracture. She state she was getting out of bed and mis-stepped and fell to the left. She denies other injuries. She denies any lightheadedness nor syncope nor loss of conscience. She state she feel sharp left hip pain when she moves. She was unable to get back up. Xray did not detect fracture. CT of hip reveals possible nondisplaced fracture left femoral neck versus artifact with moderate joint effusion. MRI is order to clarify. Orthopedist is called. - CONSULTS | PROCEDURES Consultations: orthopedics Dr. Foss Procedures: no procedure needed - HOSPITAL COURSE Hospital Course: (1) Left hip pain resolved. pt's image studies reveals no fracture including MRI and Xray. CT of hip revealed possible fracture. pt can walk and no more pain in today morning. PT walked with pt, and recommend for pt with home health PT for strength training. (2) Dementia stable. SW worker discussed with pt's caregiver and increase pt's caregiver time for pt. (3) HTN (hypertension) slight elevated BP, pt is low dosage of Norvasc, followup PCP management (4) Hx of coronary artery disease stable, continue home meds, followup PCP management (5) Osteoporosis pt is prescribe Calcium carbonate, Vit D3, Fosmax. followup PCP management (6) GERD/heart burn with nausea stable. pt has hx of GERD and with home meds of PPI, and pt is prescribed Tums PRN, followup PCP management - ALLERGIES Allergies/Adverse Reactions: Allergies Allergy/AdvReac Type Severity Reaction Status Date / Time aspirin Allergy Severe Unknown Verified 04/01/19 09:55 Eggplant Allergy Severe Anaphylaxis Verified 04/01/19 14:21 green pepper Allergy Severe Anaphylaxis Verified 04/01/19 13:28 Penicillins Allergy Severe Unknown Verified 04/01/19 09:55 potato Allergy Severe Anaphylaxis Verified 04/01/19 13:28 tomato Allergy Severe Anaphylaxis Verified 04/01/19 13:28 - MEDICATIONS Home Medications: Ambulatory Orders Medication Instructions Recorded Confirmed Multivitamin [Multivitamins] 1 each PO DAILY 12/21/15 04/01/19 Nitroglycerin [Nitrostat] 0.4 mg SL ONCE PRN 12/21/15 04/01/19 Acetaminophen [Tylenol] 650 mg PO Q4H PRN 06/18/16 04/01/19 Ferrous Sulfate 90 mg PO DAILY 06/18/16 02/14/18 Metoprolol Succinate [Toprol Xl] 50 mg PO DAILY 06/18/16 04/01/19 Omeprazole 20 mg PO DAILY 06/18/16 04/01/19 Donepezil [Aricept] 10 mg PO QPM 07/18/16 04/01/19 Potassium Chloride 20 meq PO DAILY 07/18/16 04/01/19 Calcium Carbonate/Vitamin D3 1 tab PO DAILY 04/01/19 04/01/19 [Calcium 600-Vit D3 400 Tablet] PARoxetine [Paxil] 10 mg PO DAILY 04/01/19 04/01/19 Alendronate [Fosamax] 70 mg PO Q7D #2 tablet 04/02/19 Calcium Carbonate [Tums (Calcium 500 mg PO BID PRN #10 tablet 04/02/19 Carbonate 500mg)] Cholecalciferol (Vitamin D3) 2,000 unit PO DAILY #10 capsule 04/02/19 [Vitamin D3] Ondansetron Odt [Zofran Odt] 4 mg TL Q6HR PRN #15 tablet 04/02/19 amLODIPine [Norvasc] 2.5 mg PO DAILY #10 tablet 04/02/19 - PHYSICAL EXAM AT DISCHARGE General Appearance: positive: No acute distress, Alert. negative: Lethargic Eyes Bilateral: positive: Normal inspection, PERRL, No lid inflammation, Conjunctivae nml ENT: positive: ENT inspection nml, Pharynx nml, No signs of dehydration. negative: Purulent nasal drainage, Pharyngeal erythema, Oral lesions Neck: positive: Nml inspection, Thyroid nml, No JVD, Trachea midline. negative: Thyromegaly, Lymphadenopathy (R), Lymphadenopathy (L), Stiff neck, Swelling/bruising, Tracheal deviation Respiratory: positive: Chest non-tender, No respiratory distress, Breath sounds nml. negative: Wheezes, Rales, Rhonchi Cardiovascular: positive: Regular rate & rhythm, No murmur, No gallop. negative: Irregularly irregular, Extrasystoles, Tachycardia, Bradycardia, JVD present, Systolic murmur, Diastolic murmur Peripheral Pulses: positive: 2+ Abdomen: positive: Non-tender, No organomegaly, Nml bowel sounds, No distention. negative: Tenderness, Guarding, Rebound Back: positive: Nml inspection. negative: CVA tenderness (R), CVA tenderness (L) Skin: positive: Color nml, No rash, Warm, Dry. negative: Cyanosis, Diaphoresis, Pallor Extremities: positive: Non-tender, Full ROM, Nml appearance. negative: Calf tenderness, Joint swelling, Cesia's sign/cords Neurologic/Psychiatric: positive: Motor nml, Sensation nml. negative: Weakness, Sensory loss, Facial droop, Slurred/abnml speech, Depressed mood/affect - LABS Result Diagrams: 04/02/19 04:20 04/02/19 04:20 - SEPSIS Current Stage of Sepsis: Ruled out - FOLLOW UP Follow Up: you may followup your PCP in one week. You have no hip fracture in the image study, and you walked with PT. You are arranged to have home health PT, and The time of home caregiver for you is increased. Should your symptoms return or wor sen, you may present ER, call 911 or your PCP for help - TIME SPENT Time Spent in Discharge (Minutes): 55"
== END 2019-04-02 17:45 | disposition home or self-care (01) ==
LOC: EDUNIT# → ED 09:30 → MS2 13:22
PROVIDERS: ADMIT Nurse Practitioner Gerontology; ATTEND Nurse Practitioner Gerontology
DX: S70.02XA Contusion of left hip, initial encounter (principal); W01.0XXA Fall on same level from slipping, tripping and stumbling without subsequent striking against object, initial encounter; Y92.023 Bedroom in mobile home as the place of occurrence of the external cause; F03.90 Unspecified dementia, unspecified severity, without behavioral disturbance, psychotic disturbance, mood disturbance, and anxiety; I10 Essential (primary) hypertension; I25.10 Atherosclerotic heart disease of native coronary artery without angina pectoris; M81.0 Age-related osteoporosis without current pathological fracture; K21.9 Gastro-esophageal reflux disease without esophagitis; I48.2 Chronic atrial fibrillation; Z79.01 Long term (current) use of anticoagulants; Z91.81 History of falling
CPT/HCPCS: 36415; 72192; 73502; 73721; 80053; 81003; 83735; 84484; 85025; 85610; 93005; 93306; 97116; 97161; 99283; 99284; A9270; G0378; Q0162; 81001; 87086

== ENCOUNTER 2019-08-26 10:54 | Outpatient (CLI) | payer MEDICARE | END 2019-08-26 10:55 | disposition critical access hospital (66) | LOC: EMS 10:54 | PROVIDERS: ATTEND Surgery | DX: M54.9 Dorsalgia, unspecified (principal); M54.2 Cervicalgia; R51 Headache; W19.XXXA Unspecified fall, initial encounter; Y92.008 Other place in unspecified non-institutional (private) residence as the place of occurrence of the external cause | CPT/HCPCS: A0425; A0429 ==

== ENCOUNTER 2019-08-26 11:29 | Emergency (ER) | payer MEDICARE ==
--- NOTE | 2019-08-26 11:48 | ED Physician Documentation ---
History of Present Illness - Stated complaint Stated Complaint: GLF/ - Chief complaint Chief Complaint: General - Additonal information Additional information: This is an 84-year-old female with history of dementia who was brought in from home after her son or caregiver found her fallen over in her closet. Reportedly she has had more frequent falls over the last several days. She tells me that she was walking in her room and her left leg gave out on her, she states that her left leg is "rebellious" and sometimes will just give out. She denies loss of consciousness and does not think that she hit her head with this fall. She has some mild discomfort in her left hip which she states is chronic, and she states she has some pain in the back of her head where she hit several days ago in a fall, and in her neck. She denies chest pain, abdominal pain, dysuria, or fever. Her son states that with her dementia and falls it has been increasingly hard to take care of her at home. Review of Systems Constitutional: denies: Fever Throat: denies: Dental pain / toothache Cardiac: denies: Chest pain / pressure Respiratory: denies: Dyspnea GI: denies: Abdominal Pain : denies: Dysuria Skin: denies: Rash Musculoskeletal: reports: Neck pain, Extremity pain Neurologic: denies: Focal weakness Psychiatric: denies: Depressed PD PAST MEDICAL HISTORY - Past Medical History Cardiovascular: Hypertension, Coronary artery disease, Angina Respiratory: Emphysema Neuro: Alzhiemer's Endocrine/Autoimmune: None GI: GERD, Other : Incontinence, Frequency HEENT: Chronic hearing loss Psych: None Musculoskeletal: Osteoarthritis, Osteoporosis Derm: None - Past Surgical History Past Surgical History: Yes Ortho: Hip replacement, 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 - Present Medications Home Medications: Ambulatory Orders Medication Instructions Recorded Confirmed Multivitamin [Multivitamins] 1 each PO DAILY 12/21/15 04/01/19 Nitroglycerin [Nitrostat] 0.4 mg SL ONCE PRN 12/21/15 04/01/19 Acetaminophen [Tylenol] 650 mg PO Q4H PRN 06/18/16 04/01/19 Ferrous Sulfate 90 mg PO DAILY 06/18/16 02/14/18 Metoprolol Succinate [Toprol Xl] 50 mg PO DAILY 06/18/16 04/01/19 Omeprazole 20 mg PO DAILY 06/18/16 04/01/19 Donepezil [Aricept] 10 mg PO QPM 07/18/16 04/01/19 Potassium Chloride 20 meq PO DAILY 07/18/16 04/01/19 Calcium Carbonate/Vitamin D3 1 tab PO DAILY 04/01/19 04/01/19 [Calcium 600-Vit D3 400 Tablet] PARoxetine [Paxil] 10 mg PO DAILY 04/01/19 04/01/19 Alendronate [Fosamax] 70 mg PO Q7D #2 tablet 04/02/19 Calcium Carbonate [Tums (Calcium 500 mg PO BID PRN #10 tablet 04/02/19 Carbonate 500mg)] Cholecalciferol (Vitamin D3) 2,000 unit PO DAILY #10 capsule 04/02/19 [Vitamin D3] Ondansetron Odt [Zofran Odt] 4 mg TL Q6HR PRN #15 tablet 04/02/19 amLODIPine [Norvasc] 2.5 mg PO DAILY #10 tablet 04/02/19 - Allergies Allergies/Adverse Reactions: Allergies Allergy/AdvReac Type Severity Reaction Status Date / Time aspirin Allergy Severe Unknown Verified 08/26/19 11:40 Eggplant Allergy Severe Anaphylaxis Verified 08/26/19 11:40 green pepper Allergy Severe Anaphylaxis Verified 08/26/19 11:40 Penicillins Allergy Severe Unknown Verified 08/26/19 11:40 potato Allergy Severe Anaphylaxis Verified 08/26/19 11:40 tomato Allergy Severe Anaphylaxis Verified 08/26/19 11:40 - Social History Does the pt smoke?: No Smoking Status: Never smoker Does the pt drink ETOH?: No Does the pt have substance abuse?: No - Immunizations Immunizations are current?: No Immunizations: TDAP >10years/unknown PD ED PE NORMAL - Vitals Vital signs reviewed: Yes - General General: No acute distress, Well developed/nourished - HEENT HEENT: PERRL, Other (Tenderness on the posterior scalp, no laceration or skin lesion) - Neck Neck: Other (C-collar in place, tenderness to palpation of the cervical spine somewhat diffusely) - Cardiac Cardiac: RRR, No murmur - Respiratory Respiratory: No respiratory distress, Clear bilaterally - Abdomen Abdomen: Soft, Non tender, Non distended - Back Back: No spinal TTP - Derm Derm: Warm and dry - Extremities Extremities: No deformity - 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, No motor deficit, No sensory deficit, Normal speech, Other (Alert, oriented to self, general event, somewhat forgetful with details and date.) - Psych Psych: Normal mood, Normal affect Results - Vitals Vitals: Vital Signs - 24 hr 08/26/19 08/26/19 08/26/19 11:37 12:27 14:19 Temperature 36.9 C Heart Rate 80 75 87 Respiratory 18 18 16 Rate Blood Pressure 162/81 H 149/70 H 155/78 H O2 Saturation 100 96 98 08/26/19 17:28 Temperature Heart Rate 73 Respiratory 18 Rate Blood Pressure 162/83 H O2 Saturation 100 Oxygen O2 Source Room air - Labs Labs: Laboratory Tests 08/26/19 08/26/19 08/26/19 13:56 13:56 14:26 WBC 5.0 RBC 4.47 Hgb 13.6 Hct 42.0 MCV 94.0 MCH 30.4 MCHC 32.4 RDW 12.8 Plt Count 130 MPV 10.6 Neut # (Auto) 3.3 Lymph # (Auto) 1.2 L [place] # (Auto) 0.3 Eos # (Auto) 0.1 Baso # (Auto) 0.1 Absolute Nucleated RBC 0.00 Nucleated RBC % 0.0 Sodium 144 Potassium 3.3 L Chloride 109 Carbon Dioxide 26 Anion Gap 9.0 BUN 17 Creatinine 0.5 Estimated GFR (MDRD) 118 Glucose 97 Calcium 8.8 Total Bilirubin 0.7 AST 17 ALT 12 Alkaline Phosphatase 57 Total Protein 6.5 L Albumin 3.8 Globulin 2.7 Albumin/Globulin Ratio 1.4 Lipase 22 Urine Color YELLOW Urine Clarity CLEAR Urine pH 5.5 Ur Specific [place] 1.025 Urine Protein NEGATIVE Urine Glucose (UA) NEGATIVE Urine Ketones 15 H Urine Occult Blood NEGATIVE Urine Nitrite NEGATIVE Urine Bilirubin NEGATIVE Urine Urobilinogen 0.2 (NORMAL) Ur Leukocyte Esterase NEGATIVE Ur Microscopic Review NOT INDICATED Urine Culture Comments NOT INDICATED - Rads (name of study) CT head WO Radiology: Other (No acute intracranial abnormality) CT c spine WO Radiology: Other (No acute fracture or subluxation) Left hip/pelvis Radiology: Other (No fracture or acute osseous abnormality seen) PD MEDICAL DECISION MAKING - ED course Complexity details: considered differential (Fall, intracranial hemorrhage, fracture, UTI, electrolyte abnormality) ED course: On exam patient is demented but with no focal neurologic deficits, she has some diffuse soreness of her body which she states is chronic, but does have some particular pain in her neck and the back of her head. CT scan of the head and neck show no acute injury renal abnormality, her c-collar was cleared patient has good range of motion of her left hip, but she was reportedly complaining of some left hip pain, so a x-ray of left hip and pelvis were obtained and do not show any fracture. Patient is able to bear weight and ambulate on the leg, I have a low suspicion for an occult fracture. Labs are unrevealing, urine is negative. Patient's son was called, he states that he feels that it is more difficult to take care of the patient at home, and is hoping that she can be placed into a retirement facility. He came into the hospital and social work met with him and discussed with him that because patient does not meet admission criteria at this time, the best pathway forward is to have close follow-up with her primary care provider tomorrow to discuss further care. Patient's son agrees this plan and feels comfortable taking patient home in the meantime. If she develops any further falls, or new or concerning symptoms we are happy to reevaluate her in the emergency department. Departure - Departure Disposition: 01 Home, Self Care Clinical Impression: Neck pain Fall Qualifiers: Encounter type: initial encounter Qualified Code(s): W19.XXXA - Unspecified fall, initial encounter Condition: Good Follow-Up: Georgina Fuentes PA-C [Primary Care Provider] - Within 3 Days (Follow up as soon as possible on falls) Comments: You were seen today after several falls. The scans of your head and neck and x- rays of your pelvis and left hip did not show signs of broken bones. Your labs and urine test did not show an obvious cause of your falls. If you have any weakness or numbness, Chest pain, fever, or other concerning symptoms please return to the emergency department. Please follow-up with your primary care provider as soon as possible on your falls, and use your walker whenever you are out of bed. Discharge Date/Time: 08/26/19 17:28
--- NOTE | 2019-08-26 13:08 | CT Report ---
Reason: Fall, head pain Procedure Date: 08/26/2019 Accession Number: [id number] / [id number] Procedure: CT - HEAD WO CPT Code: FULL RESULT: EXAM: CT HEAD EXAM DATE: 08/26/2019 12:03 PM. CLINICAL HISTORY: Acute pain due to trauma. COMPARISON: HEAD W/O 02/14/2018 11:21 AM. TECHNIQUE: Multiaxial CT images were obtained from the foramen magnum to the vertex. Reformats: Sagittal and coronal. IV contrast: None. In accordance with CT protocol optimization, one or more of the following dose reduction techniques were utilized for this exam: automated exposure control, adjustment of mA and/or KV based on patient size, or use of iterative reconstructive technique. FINDINGS: Parenchyma: No intraparenchymal hemorrhage. No evidence of mass, midline shift, or CT findings of acute infarction. Hammonds-white differentiation is distinct. Diffuse chronic microangiopathic white matter changes are evident. Extraaxial Spaces: Normal for age. No subdural or epidural collections identified. Ventricles: The ventricles and cortical sulci are enlarged, consistent with age-related tissue loss. Sinuses and orbits: Imaged paranasal sinuses, orbits, and mastoids show no significant abnormality. Bones: No evidence of fracture or calvarial defect. Other: Sebaceous cyst with calcification is suggested over the left anterior calvarium. IMPRESSION: No acute intracranial abnormality demonstrated. RADIA
--- NOTE | 2019-08-26 13:12 | CT Report ---
Reason: Fall, neck pain Procedure Date: 08/26/2019 Accession Number: [id number] / [id number] Procedure: CT - CERVICAL SPINE WO CPT Code: FULL RESULT: EXAM: CT CERVICAL SPINE WITHOUT CONTRAST DATE: 08/26/2019 12:03 PM. HISTORY: Acute pain due to trauma. COMPARISONS: HEAD W/O 02/14/2018 11:21 AM. TECHNIQUE: Thin-section axial images were acquired of the cervical spine without contrast. Post-processing: Coronal and sagittal reformats. Other: None. In accordance with CT protocol optimization, one or more of the following dose reduction techniques were utilized for this exam: automated exposure control, adjustment of mA and/or KV based on patient size, or use of iterative reconstructive technique. FINDINGS: Alignment: Multilevel listhesis abnormalities are seen in the cervical spine. This includes 2-3 mm anterolisthesis at C3-C4, C4-C5, and C7-T1. Mild retrolisthesis at C5-C6 measuring 2 mm is seen. Bones: No fracture or bone lesion. Interspace Levels/Facets: There is moderate diffuse degenerative disk and facet disease seen throughout the mid and lower aspects of the cervical spine. Mild central canal narrowing is seen at the C5-C6 level. Musculature: Normal. No fatty atrophy. Other: The paravertebral and prevertebral soft tissues are unremarkable. Minor biapical scarring is seen. IMPRESSION: No acute findings. RADIA
--- NOTE | 2019-08-26 13:24 | XRAY Report ---
Reason: Left hip pain, fall Procedure Date: 08/26/2019 Accession Number: [id number] / [id number] Procedure: XR - Hip w/Pelvis 2-3V LT CPT Code: FULL RESULT: EXAM: LEFT HIP RADIOGRAPHY EXAM DATE: 08/26/2019 12:26 PM HISTORY: Left hip pain, fall. COMPARISONS: HIP W/PELVIS 2-3V LT 04/01/2019 9:41 AM. TECHNIQUE: 2 views. FINDINGS: Bones: Osteopenia is present. No fractures or bone lesion. Joints: Normal. No dislocation. The hip joint space is preserved. Soft Tissues: Normal. No soft tissue swelling. Contralateral right hip arthroplasty IMPRESSION: Osteopenia. No fracture on x-ray imaging. Note: Osteopenia can limit detection of trabecular fracture. If the patient cannot ambulate, recommend MRI hip to exclude occult fracture. RADIA
[2019-08-26 14:07] LABS: BASOPHILS # (AUTO) 0.1 10^3/uL (0.0-0.1); EOSINOPHILS # (AUTO) 0.1 10^3/uL (0.0-0.7); EOSINOPHILS % (AUTO) 1.8 %; HGB - HEMOGLOBIN 13.6 g/dL (12.0-16.0); LYMPHOCYTES # (AUTO) 1.2 10^3/uL (1.5-3.5); LYMPHOCYTES % (AUTO) 24.6 %; MEAN CORPUSCULAR HEMOGLOBIN 30.4 pg (27.0-31.0); MEAN CORPUSCULAR HGB CONC 32.4 g/dL (32.0-36.0); MEAN PLATELET VOLUME 10.6 fL (7.9-10.8); MONOCYTES # (AUTO) 0.3 10^3/uL (0.0-1.0); MONOCYTES % (AUTO) 5.8 %; NEUTROPHILS # (AUTO) 3.3 10^3/uL (1.5-6.6); NEUTROPHILS % (AUTO) 66.4 %; PLT - PLATELET COUNT 130 10^3/uL (130-450); RED BLOOD COUNT 4.47 10^6/uL (4.20-5.40); RED CELL DISTRIBUTION WIDTH 12.8 % (12.0-15.0)
[2019-08-26 14:26] LABS: ALBUMIN 3.8 g/dL (3.2-5.5); ALBUMIN/GLOBULIN RATIO 1.4 (1.0-2.2); BILIRUBIN,TOTAL 0.7 mg/dL (0.2-1.0); CALCIUM 8.8 mg/dL (8.5-10.3); CREATININE 0.5 mg/dL (0.4-1.0); TOTAL PROTEIN 6.5 g/dL (6.7-8.2)
[2019-08-26 14:43] LABS: BILIRUBIN,URINE NEGATIVE (NEGATIVE); GLUCOSE, URINE (UA) NEGATIVE (NEGATIVE); KETONES,URINE (UA) 15 mg/dL (NEGATIVE); LEUKOCYTE ESTERASE, URINE NEGATIVE (NEGATIVE); NITRITE,URINE NEGATIVE (NEGATIVE); OCCULT BLOOD,URINE NEGATIVE (NEGATIVE); PH,URINE 5.5 PH (5.0-7.5); PROTEIN,URINE NEGATIVE (NEGATIVE); UROBILINOGEN,URINE 0.2 (NORMAL) E.U./dL (NORMAL)
[2019-08-26 14:48] LABS: CLARITY,URINE CLEAR (CLEAR)
[2019-08-26 17:30] VITALS: BP 162/83
== END 2019-08-26 17:28 | disposition home or self-care (01) ==
LOC: EDUNIT# → ED 11:29
DX: M54.2 Cervicalgia (principal); R51 Headache; M25.552 Pain in left hip; W18.39XA Other fall on same level, initial encounter; Z91.81 History of falling; Y93.01 Activity, walking, marching and hiking; Y92.003 Bedroom of unspecified non-institutional (private) residence as the place of occurrence of the external cause; I10 Essential (primary) hypertension; G30.9 Alzheimer's disease, unspecified; F02.80 Dementia in other diseases classified elsewhere, unspecified severity, without behavioral disturbance, psychotic disturbance, mood disturbance, and anxiety
CPT/HCPCS: 36415; 70450; 72125; 80053; 81001; 81003; 83690; 85025; 87086; 99282; 99284

== ENCOUNTER 2019-08-28 16:30 | Outpatient (CLI) | payer MEDICARE | END 2019-08-28 16:31 | disposition critical access hospital (66) | LOC: EMS 16:30 | PROVIDERS: ATTEND Surgery | DX: M25.559 Pain in unspecified hip (principal); M54.5 Low back pain; R29.6 Repeated falls | CPT/HCPCS: A0425; A0429 ==

== ENCOUNTER 2019-08-28 17:15 | Emergency (ER) | payer MEDICARE ==
--- NOTE | 2019-08-28 17:49 | ED Physician Documentation ---
History of Present Illness - Stated complaint Stated Complaint: HIP PAIN - Chief complaint Chief Complaint: Ext Problem - History obtained from History obtained from: Patient, Friend (neighbor) - History of Present Illness Timing: How many days ago (4) Pain level max: 6 Pain level now: 4 - Additonal information Additional information: 84-year-old female lives at home with her son who is her caregiver. She was seen here 3 days ago after a ground-level fall complaining of left hip pain. Negative x-rays at that time. Negative head CT and cervical spine CT. The neighbor states that the patient was fallen at least 3 times since that time. Today was found on the floor next to her bed. Did not strike her head that anyone is aware of. She is at her baseline mental status. She has a history of dementia. Her only complaints are left hip and left low back pain. Worse with walking. Better with rest. Occasionally uses a cane and/or walker to help her move at home. No fevers. No vomiting. Review of Systems Constitutional: denies: Fever, Chills Throat: denies: Sore throat Cardiac: denies: Chest pain / pressure Respiratory: denies: Cough GI: denies: Nausea, Vomiting, Diarrhea : denies: Dysuria Skin: denies: Rash Musculoskeletal: denies: Neck pain, Back pain PD PAST MEDICAL HISTORY - Past Medical History Past Medical History: Yes Cardiovascular: Hypertension, Coronary artery disease, Angina Respiratory: Emphysema Neuro: Alzhiemer's Endocrine/Autoimmune: None GI: GERD, Other : Incontinence, Frequency HEENT: Chronic hearing loss Psych: None Musculoskeletal: Osteoarthritis, Osteoporosis Derm: None - Past Surgical History Past Surgical History: Yes Ortho: Hip replacement, 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 - Present Medications Home Medications: Ambulatory Orders Medication Instructions Recorded Confirmed Donepezil [Aricept] 10 mg PO QPM 07/18/16 04/01/19 Escitalopram [Lexapro] 20 mg PO DAILY 08/28/19 08/28/19 - Allergies Allergies/Adverse Reactions: Allergies Allergy/AdvReac Type Severity Reaction Status Date / Time aspirin Allergy Severe Unknown Verified 08/28/19 17:27 Eggplant Allergy Severe Anaphylaxis Verified 08/28/19 17:27 green pepper Allergy Severe Anaphylaxis Verified 08/28/19 17:27 Penicillins Allergy Severe Unknown Verified 10/18/19 17:27 potato Allergy Severe Anaphylaxis Verified 08/28/19 17:27 tomato Allergy Severe Anaphylaxis Verified 08/28/19 17:27 - Social History Does the pt smoke?: No Smoking Status: Never smoker Does the pt drink ETOH?: No Does the pt have substance abuse?: No - Immunizations Immunizations are current?: No Immunizations: TDAP >10years/unknown PD ED PE NORMAL - Vitals Vital signs reviewed: Yes - General General: Alert and oriented X 3, No acute distress - HEENT HEENT: Moist mucous membranes - Neck Neck: Supple, no meningeal sign - Cardiac Cardiac: RRR - Respiratory Respiratory: No respiratory distress, Clear bilaterally - Abdomen Abdomen: Soft, Non tender, Non distended - Back Back: No spinal TTP - Derm Derm: Warm and dry - Extremities Extremities: Other (L knee - ACL is lax. PCL, MCL, LCL intact. NVI. no effusion. FROM of the hip without pain. antalgic gait. able to walk with a walker. 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, No motor deficit, No sensory deficit, Normal speech Results - Vitals Vitals: Vital Signs - 24 hr 08/28/19 08/28/19 08/28/19 17:13 18:48 19:30 Temperature 98.5 C H Heart Rate 76 70 74 Respiratory 18 18 17 Rate Blood Pressure 135/63 H 163/83 H O2 Saturation 97 97 97 08/28/19 08/28/19 20:06 20:55 Temperature Heart Rate 73 Respiratory 17 17 Rate Blood Pressure 156/84 H O2 Saturation 97 Oxygen O2 Source Room air - Labs Labs: Laboratory Tests 08/28/19 08/28/19 08/28/19 17:40 17:47 17:47 WBC 4.2 L RBC 4.75 Hgb 14.8 Hct 44.7 MCV 94.1 MCH 31.2 H MCHC 33.1 RDW 12.7 Plt Count 132 MPV 10.6 Neut # (Auto) 2.4 Lymph # (Auto) 1.3 L [place] # (Auto) 0.3 Eos # (Auto) 0.1 Baso # (Auto) 0.1 Absolute Nucleated RBC 0.00 Nucleated RBC % 0.0 Sodium 144 Potassium 3.0 L Chloride 107 Carbon Dioxide 25 Anion Gap 12.0 BUN 17 Creatinine 0.6 Estimated GFR (MDRD) 95 Glucose 98 Calcium 9.0 Total Bilirubin 0.7 AST 18 ALT 12 Alkaline Phosphatase 55 Total Protein 6.9 Albumin 4.2 Globulin 2.7 Albumin/Globulin Ratio 1.6 Lipase 22 Urine Color YELLOW Urine Clarity CLEAR Urine pH 5.5 Ur Specific [place] >=1.030 H Urine Protein 30 H Urine Glucose (UA) NEGATIVE Urine Ketones 15 H Urine Occult Blood NEGATIVE Urine Nitrite NEGATIVE Urine Bilirubin NEGATIVE Urine Urobilinogen 0.2 (NORMAL) Ur Leukocyte Esterase NEGATIVE Urine RBC 0-5 Urine WBC 0-3 Ur Squamous Epith Cells RARE Squamous Urine Bacteria Rare Ur Microscopic Review INDICATED Urine Culture Comments NOT INDICATED - Rads (name of study) CT L spine Radiology: Prelim report reviewed, EMP read contemporaneously, See rad report (No acute abnormality) CT L hip Radiology: Prelim report reviewed, EMP read contemporaneously, See rad report (No acute abnormality) L knee xray Radiology: Prelim report reviewed, EMP read contemporaneously, See rad report (Medial compartment arthritis. No acute abnormalities) L rib xray Radiology: Prelim report reviewed, EMP read contemporaneously, See rad report (No acute abnormalities) PD MEDICAL DECISION MAKING - ED course Complexity details: reviewed old records, reviewed results, re-evaluated patient, considered differential, d/w patient, d/w family ED course: No acute radiographic or laboratory abnormalities. She is ambulated she is well-appearing, nontoxic. Afebrile. Her neighbor was able to secure a respite bed for her at [facility]. Patient was comfortable with this plan. Patient counseled regarding signs and symptoms for which I believe and urgent re- evaluation would be necessary. Patient with good understanding of and agreement to plan and is comfortable going home at this time This document was made in part using voice recognition software. While efforts are made to proofread this document, sound alike and grammatical errors may occur. Departure - Departure Disposition: 01 Home, Self Care Clinical Impression: Fall Qualifiers: Encounter type: initial encounter Qualified Code(s): W19.XXXA - Unspecified fall, initial encounter Traumatic hematoma of buttock Qualifiers: Encounter type: initial encounter Qualified Code(s): S30.0XXA - Contusion of lower back and pelvis, initial encounter Condition: Good Instructions: ED Hematoma Follow-Up: Georgina Fuentes PA-C [Primary Care Provider] - Within 3 Days Comments: Thankfully your x-rays and CAT scans do not show any acute fractures. Your laboratory testing is normal. You do have a small hematoma in your left buttock. This will heal on its own. Return if you worsen. Follow-up with your doctor for further care. You were also given information about respite care and caregivers for home. Discharge Date/Time: 08/28/19 20:55
[2019-08-28 17:53] LABS: BILIRUBIN,URINE NEGATIVE (NEGATIVE); GLUCOSE, URINE (UA) NEGATIVE (NEGATIVE); KETONES,URINE (UA) 15 mg/dL (NEGATIVE); LEUKOCYTE ESTERASE, URINE NEGATIVE (NEGATIVE); NITRITE,URINE NEGATIVE (NEGATIVE); OCCULT BLOOD,URINE NEGATIVE (NEGATIVE); PH,URINE 5.5 PH (5.0-7.5); PROTEIN,URINE 30 mg/dL (NEGATIVE); UROBILINOGEN,URINE 0.2 (NORMAL) E.U./dL (NORMAL)
[2019-08-28 17:54] LABS: BASOPHILS # (AUTO) 0.1 10^3/uL (0.0-0.1); BASOPHILS % (AUTO) 1.2 %; EOSINOPHILS # (AUTO) 0.1 10^3/uL (0.0-0.7); EOSINOPHILS % (AUTO) 2.9 %; HGB - HEMOGLOBIN 14.8 g/dL (12.0-16.0); LYMPHOCYTES # (AUTO) 1.3 10^3/uL (1.5-3.5); LYMPHOCYTES % (AUTO) 32.1 %; MEAN CORPUSCULAR HEMOGLOBIN 31.2 pg (27.0-31.0); MEAN CORPUSCULAR HGB CONC 33.1 g/dL (32.0-36.0); MEAN CORPUSCULAR VOLUME 94.1 fL (81.0-99.0); MEAN PLATELET VOLUME 10.6 fL (7.9-10.8); MONOCYTES # (AUTO) 0.3 10^3/uL (0.0-1.0); MONOCYTES % (AUTO) 6.9 %; NEUTROPHILS # (AUTO) 2.4 10^3/uL (1.5-6.6); NEUTROPHILS % (AUTO) 56.4 %; PLT - PLATELET COUNT 132 10^3/uL (130-450); RED BLOOD COUNT 4.75 10^6/uL (4.20-5.40); RED CELL DISTRIBUTION WIDTH 12.7 % (12.0-15.0); WHITE BLOOD COUNT 4.2 x10^3/uL (4.8-10.8)
[2019-08-28 17:54] LABS: CLARITY,URINE CLEAR (CLEAR)
[2019-08-28 18:02] LABS: BACTERIA,URINE Rare /HPF (None Seen); RBC,URINE 0-5 /HPF (0-5); SQUAMOUS EPITHELIAL CELL,UR RARE Squamous (<= Few)
[2019-08-28 18:06] LABS: ALBUMIN 4.2 g/dL (3.2-5.5); ALBUMIN/GLOBULIN RATIO 1.6 (1.0-2.2); BILIRUBIN,TOTAL 0.7 mg/dL (0.2-1.0); CREATININE 0.6 mg/dL (0.4-1.0); TOTAL PROTEIN 6.9 g/dL (6.7-8.2)
[2019-08-28] MEDS ORDERED: POTASSIUM CHLORIDE 20 MEQ TABLET PO STA (18:34)
--- NOTE | 2019-08-28 18:46 | CT Report ---
Reason: low back pain s/p fall Procedure Date: 08/28/2019 Accession Number: [id number] / [id number] Procedure: CT - LUMBAR SPINE WO CPT Code: FULL RESULT: EXAM: CT LUMBAR SPINE WITHOUT CONTRAST EXAM DATE: 08/28/2019 06:02 PM. CLINICAL HISTORY: Low back pain s/p fall. COMPARISONS: None. TECHNIQUE: Thin-section axial images were acquired of the lumbar spine from T12 to S1 without contrast. Post-processing: Coronal and sagittal reformats. Other: None. In accordance with CT protocol optimization, one or more of the following dose reduction techniques were utilized for this exam: automated exposure control, adjustment of mA and/or KV based on patient size, or use of iterative reconstructive technique. FINDINGS: Alignment: There is left convex scoliosis. There is no evidence of spondylolisthesis. No dislocation. Bones: Bones are osteopenic. There is no evidence of acute fracture. Disk Levels/Facets: T12-L1: Unremarkable. L1-L2: Unremarkable. L2-L3: Unremarkable. L3-L4: Unremarkable. L4-L5: There is moderate spinal stenosis and moderate right-sided neural foramen narrowing secondary to disk bulge, scoliosis, ligamentum flavum hypertrophy and facet arthrosis. L5-S1: There is mild spinal stenosis and mild right-sided neural foramen narrowing secondary to disk bulge and scoliosis. Musculature: Normal. No fatty atrophy. Other: Heterogeneous appearance of the kidneys without evidence of acute abnormality. The visualized gastrointestinal tract demonstrates no acute findings. IMPRESSION: 1. No evidence of fracture or dislocation. 2. There is left convex scoliosis. 3. There is moderate lower lumbar spine degenerative disease. RADIA
--- NOTE | 2019-08-28 18:48 | XRAY Report ---
Reason: L knee pain s/p fall Procedure Date: 08/28/2019 Accession Number: [id number] / [id number] Procedure: XR - Knee 4 View LT CPT Code: FULL RESULT: EXAM: LEFT KNEE RADIOGRAPHY EXAM DATE: 08/28/2019 06:13 PM. CLINICAL HISTORY: L knee pain s/p fall. COMPARISON: HIP 1 VIEW LT 02/13/2018 11:39 AM. TECHNIQUE: 4 views. FINDINGS: Bones: No fracture or focal bony lesion. Joints: No evidence of dislocation. There is moderate medial compartment degenerative disease. Soft Tissues: No unexpected soft tissue findings. IMPRESSION: No evidence of fracture or dislocation. RADIA
--- NOTE | 2019-08-28 18:48 | CT Report ---
Reason: L hip pain s/p fall Procedure Date: 08/28/2019 Accession Number: [id number] / [id number] Procedure: CT - LOWER EXTREMITY WO - LT CPT Code: FULL RESULT: EXAM: LEFT hip CT WITHOUT CONTRAST EXAM DATE: 08/28/2019 06:02 PM. CLINICAL HISTORY: Left hip pain after fall. COMPARISON: HIP W/PELVIS 2-3V LT 08/26/2019 12:00 PM. TECHNIQUE: Thin-section axial images were acquired of the hip without contrast. Post-processing: Coronal and sagittal reformats. Other: None. In accordance with CT protocol optimization, one or more of the following dose reduction techniques were utilized for this exam: automated exposure control, adjustment of mA and/or KV based on patient size, or use of iterative reconstructive technique. FINDINGS: The bones are osteopenic which lowers the sensitivity in detecting fractures by CT. No definite acute fracture or bone lesions. No hip dislocation or effusion. Musculature: Normal. No fatty atrophy. Other: Subcutaneous edema and questionable small amount of subcutaneous free fluid or hematoma at the inferomedial aspect of the left buttock. IMPRESSION: 1. Osteopenia which lowers the sensitivity in detecting fractures by CT. 2. No definite acute fracture or bone lesions of the left hip. 3. Subcutaneous edema and questionable small amount of subcutaneous free fluid or hematoma at the inferomedial aspect of the left buttock. 4. If the patient's symptoms persist or worsen, then further evaluation with MR imaging is suggested to evaluate for occult fracture or soft tissue injury. RADIA
[2019-08-28 20:07] VITALS: BP 156/84
--- NOTE | 2019-08-28 20:23 | XRAY Report ---
Reason: fall, L rib pain Procedure Date: 08/28/2019 Accession Number: [id number] / [id number] Procedure: XR - Ribs w/PA Chest LT CPT Code: FULL RESULT: EXAM: LEFT RIB RADIOGRAPHY EXAM DATE: 08/28/2019 08:02 PM. CLINICAL HISTORY: Fall, L rib pain. COMPARISON: CHEST 2 VIEW 01/23/2018 12:20 PM. TECHNIQUE: 1 view of the chest and 2 views of the ribs. FINDINGS: Bones: No definite acute left-sided rib fracture is visualized. Lungs: No new focal lung consolidation or large effusions. No pneumothorax. Mildly low lung volumes. Patient is mildly rotated. Mediastinum: Cardiac silhouette size appears stable. Tortuosity of the thoracic aorta. Atherosclerotic vascular calcifications. Possible retrocardiac hiatal hernia. Other: Scoliotic curvature in the visualized thoracolumbar spine again noted. IMPRESSION: 1. No definite acute left-sided rib fracture is visualized. 2. No focal lung consolidation or large effusions. 3. Possible retrocardiac hiatal hernia. RADIA
== END 2019-08-28 20:55 | disposition home or self-care (01) ==
LOC: ED 17:15
DX: S30.0XXA Contusion of lower back and pelvis, initial encounter (principal); W19.XXXA Unspecified fall, initial encounter; Z91.81 History of falling; Y92.003 Bedroom of unspecified non-institutional (private) residence as the place of occurrence of the external cause; M17.12 Unilateral primary osteoarthritis, left knee; M51.36 Other intervertebral disc degeneration, lumbar region; M48.061 Spinal stenosis, lumbar region without neurogenic claudication; M41.86 Other forms of scoliosis, lumbar region; G30.9 Alzheimer's disease, unspecified; F02.80 Dementia in other diseases classified elsewhere, unspecified severity, without behavioral disturbance, psychotic disturbance, mood disturbance, and anxiety; I10 Essential (primary) hypertension
CPT/HCPCS: 36415; 71101; 72131; 73564; 73700; 80053; 81001; 83690; 85025; 99282; 99284; A9270; 81003; 87086

== ENCOUNTER 2019-09-01 13:02 | Emergency (ER) | payer MEDICARE ==
[2019-09-01] MEDS ORDERED: ACETAMINOPHEN 325 MG TABLET PO STA (14:21)
--- NOTE | 2019-09-01 14:21 | ED Physician Documentation ---
PD HPI LOWER EXT INJURY - Stated complaint Stated Complaint: LT WRIST PX - Chief complaint Chief Complaint: Ext Problem - History obtained from History obtained from: Patient, Family (son) - History of Present Illness PD HPI LOW EXT INJURY LOCATION: Left (Reportedly fell at assisted living today while trying to self transfer from her bed to her wheelchair. Most of the history is from the son because of dementia. She injured her left wrist. No other reported injuries.) Review of Systems Unable to obtain: Dementia PD PAST MEDICAL HISTORY - Past Medical History Cardiovascular: Hypertension, Coronary artery disease, Angina Respiratory: Emphysema Neuro: Alzhiemer's Endocrine/Autoimmune: None GI: GERD, Other : Incontinence, Frequency HEENT: Chronic hearing loss Psych: None Musculoskeletal: Osteoarthritis, Osteoporosis Derm: None - Past Surgical History Past Surgical History: Yes Ortho: Hip replacement, Other /LIQUOR RECTIFIER: Hysterectomy - Present Medications Home Medications: Ambulatory Orders Medication Instructions Recorded Confirmed Donepezil [Aricept] 10 mg PO QPM 07/18/16 04/01/19 Escitalopram [Lexapro] 20 mg PO DAILY 08/28/19 08/28/19 - Allergies Allergies/Adverse Reactions: Allergies Allergy/AdvReac Type Severity Reaction Status Date / Time aspirin Allergy Severe Unknown Verified 09/01/19 13:04 Eggplant Allergy Severe Anaphylaxis Verified 09/01/19 13:04 green pepper Allergy Severe Anaphylaxis Verified 09/01/19 13:04 Penicillins Allergy Severe Unknown Verified 09/01/19 13:04 potato Allergy Severe Anaphylaxis Verified 09/01/19 13:04 tomato Allergy Severe Anaphylaxis Verified 09/01/19 13:04 - Social History Does the pt smoke?: No Smoking Status: Never smoker Does the pt drink ETOH?: No Does the pt have substance abuse?: No - Immunizations Immunizations are current?: No Immunizations: TDAP >10years/unknown PD ED PE NORMAL - Vitals Vital signs reviewed: Yes - General General: Other (Alert and oriented to person, cooperative) - HEENT HEENT: PERRL - Neck Neck: Supple, no meningeal sign, No bony TTP - Back Back: No spinal TTP - Extremities Extremities: Other (Quite tender over the left distal radius with a lot of swelling of the wrist and hand) - Neuro Neuro: machine tender 2-12 intact, No motor deficit, No sensory deficit, Normal speech Eye Opening: Spontaneous Motor: Obeys Commands Verbal: Confused GCS Score: 14 Results - Vitals Vitals: Vital Signs - 24 hr 09/01/19 13:04 Temperature 36.8 C Heart Rate 68 Respiratory 18 Rate Blood Pressure 169/81 H O2 Saturation 98 Oxygen O2 Source Room air - Rads (name of study) XRs L wrist and Hand Radiology: EMP read contemporaneously (Osteopenia without obvious fracture) Departure - Departure Disposition: 01 Home, Self Care Clinical Impression: Contusion of left hand Qualifiers: Encounter type: initial encounter Qualified Code(s): S60.222A - Contusion of left hand, initial encounter Left wrist sprain Qualifiers: Encounter type: initial encounter Qualified Code(s): S63.502A - Unspecified sprain of left wrist, initial encounter Condition: Good Record reviewed to determine appropriate education?: Yes Instructions: ED Sprain Wrist Comments: Ice as needed and elevate as much as possible. Follow-up with your doctor if not better in a week. No obvious fracture on x-ray. Tylenol as needed for pain.
--- NOTE | 2019-09-01 15:24 | XRAY Report ---
Reason: wrist inj Procedure Date: 09/01/2019 Accession Number: [id number] / [id number] Procedure: XR - Wrist 3 View LT CPT Code: FULL RESULT: EXAM: LEFT WRIST RADIOGRAPHY EXAM DATE: 09/01/2019 02:54 PM. CLINICAL HISTORY: Wrist injury. Pain. COMPARISON: HAND 3 VIEW LT 09/01/2019 2:32 PM. TECHNIQUE: 3 views. FINDINGS: Bones: Diffusely demineralized. No displaced fracture identified. No bone lesion. Joints: No subluxation or dislocation. There are mild to moderate degenerative joint changes at the radial aspect of the carpus, most advanced at the first carpometacarpal joint. Soft Tissues: There is soft tissue swelling dorsal to the distal metacarpals, better seen on hand radiographs. IMPRESSION: 1. No acute fracture of the wrist. Bones are diffusely demineralized. 2. Mild to moderate degenerative joint changes at the radial aspect of the carpus, most advanced at the first carpometacarpal joint. 3. Soft tissue swelling dorsal to the distal metacarpals, better seen on hand radiographs. RADIA
--- NOTE | 2019-09-01 15:27 | XRAY Report ---
Reason: HAND INJURY Procedure Date: 09/01/2019 Accession Number: [id number] / [id number] Procedure: XR - Hand 3 View LT CPT Code: FULL RESULT: EXAM: LEFT HAND RADIOGRAPHY EXAM DATE: 09/01/2019 02:54 PM. CLINICAL HISTORY: HAND INJURY. Swelling. COMPARISON: WRIST 3 VIEW LT 09/01/2019 2:29 PM. TECHNIQUE: 3 views. FINDINGS: Bones: Diffusely demineralized. No displaced fracture identified. No bone lesion. Joints: No subluxation or dislocation. There are moderate to severe degenerative changes at the interphalangeal joints throughout the hand, most advanced at the distal interphalangeal joints of the second and third digits. There are mild to moderate degenerative joint changes at the radial aspect of the carpus. Soft Tissues: There is soft tissue swelling dorsal to the distal metacarpals and metacarpophalangeal joints. IMPRESSION: 1. Fracture identified. Bones are diffusely demineralized. 2. Soft tissue swelling dorsal to the distal metacarpals and metacarpophalangeal joints. 3. Moderate to severe degenerative osteoarthritis at the interphalangeal joints throughout the hand. 4. Mild to moderate degenerative joint changes at the radial aspect of the carpus. RADIA
[2019-09-01 15:46] VITALS: BP 145/67
== END 2019-09-01 15:46 | disposition home or self-care (01) ==
LOC: ED 13:02
DX: S63.502A Unspecified sprain of left wrist, initial encounter (principal); S60.222A Contusion of left hand, initial encounter; W06.XXXA Fall from bed, initial encounter; Y93.89 Activity, other specified; Y92.092 Bedroom in other non-institutional residence as the place of occurrence of the external cause; G30.9 Alzheimer's disease, unspecified; F02.80 Dementia in other diseases classified elsewhere, unspecified severity, without behavioral disturbance, psychotic disturbance, mood disturbance, and anxiety; M18.12 Unilateral primary osteoarthritis of first carpometacarpal joint, left hand; M19.042 Primary osteoarthritis, left hand; M85.842 Other specified disorders of bone density and structure, left hand; I10 Essential (primary) hypertension
CPT/HCPCS: 73110; 73130; 99281; 99283; A9270

== ENCOUNTER 2019-09-05 15:09 | Outpatient (CLI) | payer MEDICARE | END 2019-09-05 15:10 | disposition critical access hospital (66) | LOC: EMS 15:09 | PROVIDERS: ATTEND Surgery | DX: R63.0 Anorexia (principal); R53.83 Other fatigue; R53.1 Weakness | CPT/HCPCS: A0425; A0429 ==

== ENCOUNTER 2019-09-05 15:32 | Inpatient (IN) | payer MEDICARE ==
--- NOTE | 2019-09-05 15:47 | ED Physician Documentation ---
History of Present Illness - Stated complaint Stated Complaint: WEAKNESS - Chief complaint Chief Complaint: Neuro - Additonal information Additional information: This is an 84-year-old female with a history of hypertension, CAD, dementia, who presents with weakness and being less alert. Patient has had multiple falls last week, at baseline she is able to ambulate independently, and hold a conversation though she does have dementia. She was seen earlier in the week for some left- sided discomfort after a fall, she x-rays of her left wrist which were negative for fracture, she was discharged home. According to her children's zoo caretaker she has had pronounced left-sided weakness since early Saturday, and she also may be had a facial droop at that time. The exact timeline that this weakness started is slightly unclear because it sounds like the patient's daughter noticed the weakness several days ago. Either way it sound like it is been over 24 hours . Today patient seemed weaker than usual, she was hardly able to drink fluids from a straw, she has been sleeping most the day, and she has been less responsive. She lives at [facility], and she normally lives in her own apartment, and only needs assistance from staff. She has not had a fever, has not been complaining of specific pain, when she is moved she complains of diffuse pain. Patient has an advanced directive which states that she would like comfort care and to avoid hospital transfer, when I speak to patient and her daughter about this, they clarify that she is a DO NOT RESUSCITATE, DO NOT INTUBATE, but they would like limited interventions if it may lead to increased quality of life. Review of Systems Constitutional: denies: Fever Cardiac: denies: Chest pain / pressure Respiratory: denies: Dyspnea GI: denies: Abdominal Pain : reports: Incontinent Skin: denies: Rash Neurologic: reports: Generalized weakness, Focal weakness PD PAST MEDICAL HISTORY - Past Medical History Cardiovascular: Hypertension, Coronary artery disease, Angina Respiratory: Emphysema Neuro: Alzhiemer's Endocrine/Autoimmune: None GI: GERD, Other : Incontinence, Frequency HEENT: Chronic hearing loss Psych: None Musculoskeletal: Osteoarthritis, Osteoporosis Derm: None - Past Surgical History Past Surgical History: Yes Ortho: Hip replacement, Other /FIRE MEDIC: Hysterectomy - Present Medications Home Medications: Ambulatory Orders Medication Instructions Recorded Confirmed Donepezil [Aricept] 10 mg PO QPM 07/18/16 09/06/19 Escitalopram [Lexapro] 20 mg PO DAILY 08/28/19 09/06/19 Acetaminophen 325 mg PO Q6H PRN 09/06/19 09/06/19 Calcium Carbonate [Calcium] 600 mg PO DAILY 09/06/19 09/06/19 Memantine HCl 10 mg PO BID 09/06/19 09/06/19 Multivitamin [Theragran] 1 tab PO DAILY 09/06/19 09/06/19 Omeprazole 20 mg PO QDAC 09/06/19 09/06/19 - Allergies Allergies/Adverse Reactions: Allergies Allergy/AdvReac Type Severity Reaction Status Date / Time aspirin Allergy Severe Unknown Verified 09/05/19 15:42 Eggplant Allergy Severe Anaphylaxis Verified 09/05/19 15:42 green pepper Allergy Severe Anaphylaxis Verified 09/05/19 15:42 Penicillins Allergy Severe Unknown Verified 09/05/19 15:42 potato Allergy Severe Anaphylaxis Verified 09/05/19 15:42 tomato Allergy Severe Anaphylaxis Verified 09/05/19 15:42 - Social History Does the pt smoke?: No Smoking Status: Never smoker Does the pt drink ETOH?: No Does the pt have substance abuse?: No - Immunizations Immunizations are current?: No Immunizations: TDAP >10years/unknown - POLST Patient has POLST: No PD ED PE NORMAL - Vitals Vital signs reviewed: Yes - General General: Other (Somewhat somnolent, but awakens to verbal stimuli, is able to tell me her name, she states that she [facility], and she is able to answer yes/no questions) - HEENT HEENT: PERRL - Neck Neck: Supple, no meningeal sign - Cardiac Cardiac: RRR - Respiratory Respiratory: No respiratory distress, Clear bilaterally - Abdomen Abdomen: Soft, Non tender, Non distended - Derm Derm: Warm and dry - Extremities Extremities: No deformity - Neuro Neuro: Other (Somewhat somnolent but awakens easily to voice, she is oriented to self and place as a hospital, does not know the date. Pupils equal round reactive to light. Extraocular muscles are intact. She has a questionable left lower facial droop. She has fairly clear speech, though speaks and short phrases and words. She is able to wiggle the fingers on her left hand, but cannot pick her left arm off the bed. Her evaluator strength on the left is 3 out of 5, 4 out of 5 on the right. She has arm drift bilaterally, and is unclear if is due to weakness or because she is unable to follow instructions. She also appears to have weakness on her left Lower extremity with hip flexion, although again this is difficult to test given her mental status.) Results - Vitals Vitals: Oxygen O2 Source Room air - EKG (time done) 16:13 Other comments: Other comments (Rate 89, rhythm sinus, left ventricular hypertrophy, and poor R wave progression. No ST segment elevation or depression.) - Labs Labs: Microbiology 09/05/19 17:10 Urine Culture - Preliminary Urine,Catheterized Escherichia Coli Laboratory Tests 09/05/19 09/05/19 09/05/19 16:45 16:45 16:45 WBC 7.6 RBC 4.41 Hgb 13.5 Hct 41.4 MCV 93.9 MCH 30.6 MCHC 32.6 RDW 12.5 Plt Count 158 MPV 10.8 Neut # (Auto) 5.8 Lymph # (Auto) 1.0 L Hardeman # (Auto) 0.7 Eos # (Auto) 0.1 Baso # (Auto) 0.0 Absolute Nucleated RBC 0.00 Nucleated RBC % 0.0 PT 13.5 H INR 1.2 APTT 27.4 VBG pH VBG pCO2 VBG pO2 VBG HCO3 VBG Total CO2 VBG O2 Saturation VBG Base Excess Sodium 140 Potassium 4.2 Chloride 103 Carbon Dioxide 26 Anion Gap 11.0 BUN 12 Creatinine 0.5 Estimated GFR (MDRD) 118 Glucose 116 H Calcium 9.0 Total Bilirubin 0.9 AST 13 ALT < 10 L Alkaline Phosphatase 58 Total Protein 7.1 Albumin 3.5 Globulin 3.6 Albumin/Globulin Ratio 1.0 Lipase 26 TSH Urine Color Urine Clarity Urine pH Ur Specific Jones Urine Protein Urine Glucose (UA) Urine Ketones Urine Occult Blood Urine Nitrite Urine Bilirubin Urine Urobilinogen Ur Leukocyte Esterase Urine RBC Urine WBC Ur Squamous Epith Cells Urine Bacteria Ur Microscopic Review Urine Culture Comments 09/05/19 09/05/19 09/05/19 16:45 16:45 17:10 WBC RBC Hgb Hct MCV MCH MCHC RDW Plt Count MPV Neut # (Auto) Lymph # (Auto) Hardeman # (Auto) Eos # (Auto) Baso # (Auto) Absolute Nucleated RBC Nucleated RBC % PT INR APTT VBG pH 7.479 H VBG pCO2 35.9 L VBG pO2 56.5 H VBG HCO3 26.1 VBG Total CO2 27.2 VBG O2 Saturation 92.0 H VBG Base Excess 2.8 H Sodium Potassium Chloride Carbon Dioxide Anion Gap BUN Creatinine Estimated GFR (MDRD) Glucose Calcium Total Bilirubin AST ALT Alkaline Phosphatase Total Protein Albumin Globulin Albumin/Globulin Ratio Lipase TSH 2.34 Urine Color YELLOW Urine Clarity HAZY Urine pH 6.0 Ur Specific Jones 1.025 Urine Protein 30 H Urine Glucose (UA) NEGATIVE Urine Ketones 40 H Urine Occult Blood SMALL H Urine Nitrite POSITIVE H Urine Bilirubin NEGATIVE Urine Urobilinogen 0.2 (NORMAL) Ur Leukocyte Esterase NEGATIVE Urine RBC 11-25 H Urine WBC 11-25 H Ur Squamous Epith Cells NONE SEEN Urine Bacteria Many H Ur Microscopic Review INDICATED Urine Culture Comments INDICATED - Rads (name of study) CXR Radiology: Other (No acute cardiopulmonary abnormality) CT head WO Radiology: Other (Chronic senescent changes, no acute intracranial abnormality) PD MEDICAL DECISION MAKING - ED course Complexity details: considered differential (Stroke, head bleed, electrolyte abnormality, urinary tract infection) ED course: On arrival, patient is nontoxic and vital signs unremarkable. She does have some apparent left-sided weakness, though it is very difficult to perform a reliable neurologic exam because she follows directions intermittently, and she appears to have some generalized weakness. CT scan of the head was obtained and shows no acute intracranial abnormality. EKG shows left ventricular hypertrophy without convincing signs of ischemia or dysrhythmia. CBC and CMP were unremarkable, UA is positive for a urinary tract infection. She was given 1 g o f ceftriaxone IV. Speaking to patient's daughter and her caregiver, she has had an acute decline in her mental status in the setting of a slower more chronic decline. Her left- sided weakness is acute but is greater than 24 hours old, She is out of the window for any intervention, and I have a high suspicion that she has completed stroke that is not visible on CT. Her weakness and mental status changes may also be due to her urinary tract infection, and this may respond to treatment. After speaking to patient's family to better elucidate her goals of care, we made the decision to admit patient to the hospital for treatment of her UTI, and to help arrange either further treatment/rehabilitation for her weakness, or palliative care/comfort care at [facility]. Patient was admitted to the hospitalist service, please refer to their notes for the hospital course Departure - Departure Disposition: 66 [facility] DC/Xfer Clinical Impression: Stroke Qualifiers: CVA mechanism: unspecified Qualified Code(s): I63.9 - Cerebral infarction, unspecified UTI (urinary tract infection) Qualifiers: Urinary tract infection type: site unspecified Hematuria presence: with hematuria Qualified Code(s): N39.0 - Urinary tract infection, site not specified Condition: Stable Discharge Date/Time: 09/05/19 19:35
--- NOTE | 2019-09-05 16:36 | XRAY Report ---
Reason: chest pain Procedure Date: 09/05/2019 Accession Number: [id number] / [id number] Procedure: XR - Chest 1 View X-Ray CPT Code: 02707 FULL RESULT: EXAM: CHEST RADIOGRAPHY EXAM DATE: 09/05/2019 04:10 PM. CLINICAL HISTORY: Chest pain. COMPARISON: RIBS W/PA CHEST LT 08/28/2019 7:44 PM. TECHNIQUE: 1 view. FINDINGS: LUNGS: Atelectatic bands within the left lower lung zone. The lungs are otherwise clear. PLEURA: No significant pleural effusion. No clinically significant pneumothorax. MEDIASTINUM: Cardiomegaly, similar to prior. There are calcifications in the aortic arch. BONES: The bones are osteopenic. Again dextroscoliosis. IMPRESSION: No acute cardiopulmonary abnormality. RADIA
--- NOTE | 2019-09-05 16:40 | CT Report ---
Reason: AMS, left sided weakness Procedure Date: 09/05/2019 Accession Number: [id number] / [id number] Procedure: CT - HEAD WO CPT Code: FULL RESULT: EXAM: CT HEAD EXAM DATE: 09/05/2019 04:02 PM. CLINICAL HISTORY: Altered mental status. Left-sided weakness. COMPARISON: CERVICAL SPINE W/O 08/26/2019 11:58 AM HEAD W/O 08/26/2019 11:58 AM. TECHNIQUE: Multiaxial CT images were obtained from the foramen magnum to the vertex. Reformats: Sagittal and coronal. IV contrast: None. In accordance with CT protocol optimization, one or more of the following dose reduction techniques were utilized for this exam: automated exposure control, adjustment of mA and/or KV based on patient size, or use of iterative reconstructive technique. FINDINGS: Parenchyma: No mass-effect or midline shift. No evidence for edema. No intracranial hemorrhage. Small chronic infarct right hewitt radiata again noted. Bilateral chronic microangiopathic white matter changes are evident. Extraaxial Spaces: Normal for age. No subdural or epidural collections identified. Ventricles: The ventricles and cortical sulci are enlarged, consistent with age-related tissue loss. Sinuses and orbits: Imaged paranasal sinuses, orbits, and mastoids show no significant abnormality. Bones: No evidence of fracture or calvarial defect. Other: Left frontal scalp calcified nodule again noted. IMPRESSION: Chronic and senescent changes as above. No acute intracranial abnormality seen. RADIA
[2019-09-05 16:53] LABS: BASOPHILS % (AUTO) 0.5 %; EOSINOPHILS # (AUTO) 0.1 10^3/uL (0.0-0.7); EOSINOPHILS % (AUTO) 0.7 %; HGB - HEMOGLOBIN 13.5 g/dL (12.0-16.0); LYMPHOCYTES % (AUTO) 13.1 %; MEAN CORPUSCULAR HEMOGLOBIN 30.6 pg (27.0-31.0); MEAN CORPUSCULAR HGB CONC 32.6 g/dL (32.0-36.0); MEAN CORPUSCULAR VOLUME 93.9 fL (81.0-99.0); MEAN PLATELET VOLUME 10.8 fL (7.9-10.8); MONOCYTES # (AUTO) 0.7 10^3/uL (0.0-1.0); MONOCYTES % (AUTO) 9.4 %; NEUTROPHILS # (AUTO) 5.8 10^3/uL (1.5-6.6); NEUTROPHILS % (AUTO) 75.6 %; PLT - PLATELET COUNT 158 10^3/uL (130-450); RED BLOOD COUNT 4.41 10^6/uL (4.20-5.40); RED CELL DISTRIBUTION WIDTH 12.5 % (12.0-15.0); WHITE BLOOD COUNT 7.6 x10^3/uL (4.8-10.8)
[2019-09-05 17:05] LABS: INR 1.2 (0.8-1.2); PT - PROTHROMBIN TIME 13.5 secs (9.9-12.6)
[2019-09-05 17:07] LABS: ALBUMIN 3.5 g/dL (3.2-5.5); ALKALINE PHOSPHATASE 58 IU/L (42-121); ALT ALANINE AMINOTRANSFERASE < 10 IU/L (10-60); AST ASPARTATE AMINOTRANSFERASE 13 IU/L (10-42); BILIRUBIN,TOTAL 0.9 mg/dL (0.2-1.0); BUN - BLOOD UREA NITROGEN 12 mg/dL (6-20); CARBON DIOXIDE - CO2 26 mmol/L (21-32); CHLORIDE 103 mmol/L (101-111); CREATININE 0.5 mg/dL (0.4-1.0); GFR - MDRD 118 (>89); GLUCOSE 116 mg/dL (70-100); LIPASE 26 U/L (22-51); SODIUM 140 mmol/L (135-145); TOTAL PROTEIN 7.1 g/dL (6.7-8.2)
[2019-09-05 17:09] LABS: VBG BASE EXCESS 2.8 mmol/L (-2 - +2); VBG PCO2 35.9 mmHg (41-51); VBG PH 7.479 (7.31-7.41); VBG PO2 56.5 mmHg (25-47); VBG TOTAL CO2 27.2 mmol/L (24-29)
[2019-09-05 17:13] LABS: PARTIAL THROMBOPLASTIN TIME 27.4 secs (24.9-33.3)
[2019-09-05 17:27] LABS: BILIRUBIN,URINE NEGATIVE (NEGATIVE); GLUCOSE, URINE (UA) NEGATIVE (NEGATIVE); KETONES,URINE (UA) 40 mg/dL (NEGATIVE); LEUKOCYTE ESTERASE, URINE NEGATIVE (NEGATIVE); NITRITE,URINE POSITIVE (NEGATIVE); OCCULT BLOOD,URINE SMALL (NEGATIVE); PROTEIN,URINE 30 mg/dL (NEGATIVE); UROBILINOGEN,URINE 0.2 (NORMAL) E.U./dL (NORMAL)
[2019-09-05 17:28] LABS: CLARITY,URINE HAZY (CLEAR)
[2019-09-05 17:37] LABS: BACTERIA,URINE Many /HPF (None Seen); SQUAMOUS EPITHELIAL CELL,UR NONE SEEN (<= Few)
[2019-09-05] MEDS ORDERED: cefTRIAXone 1 GM in SODIUM CHLORIDE 0.9% MINIBAG 100 ML IV STA (17:59)
[2019-09-05] MEDS ORDERED: SODIUM CHLORIDE FLUSH 0.9% 10 ML SYRINGE IVP PRN (21:02)
[2019-09-05] MEDS: SODIUM CHLORIDE 0.9% 1,000 ML IV SCH (21:33)
[2019-09-05] MEDS: SODIUM CHLORIDE FLUSH 0.9% 10 ML SYRINGE IVP SCH (21:35)
--- NOTE | 2019-09-05 23:47 | HISTORY & PHYSICAL EXAMINATION ---
Chief Complaint - Chief Complaint Chief Complaint: generalized weakness, left sided weakness, frequent falls History of Present Illness - Admitted From Admitted From:: [facility] - History Obtained From Records Reviewed: yes History obtained from: friend (Daiana Ware) Exam Limitations: currently a poor historian - History of Present Illness HPI Comment/Other: Patient is an 84 y/o female who presented to the ED from [facility] with severe weakness. Staff and friend were concern about the significant change in patient's overall status and felt she should be evaluated in the ED. It is reported that up until about 1 week ago the patient was living in her own home in [place]. She had a private caregiver who came to her house for a few hours during the week. Her son lives on the property but does not see her or come to the house often. Up until 2 weeks ago, she could walk into [facility] using her walker. She was found on the floor on 08/24/19 and brought to the ED. Work up was largely unremarkable so she was discharged from the ED. She fell again on 08/28/19 and was again brought to the ED where work up was again unremarkable. She went to [facility] for respite care and that is where she presents from. In the ED she was found to have generalized weakness. However she had significantly more weakness on the left side than the right, with a left facial droop. She is not able to carry on a full conversation. CT of brain without contrast was largely unremarkable. UA done was suggestive of a UTI. As a result patient is being admitted for further workup and treatment Patient does not have a designated DPOA. There has been concern raised as to how suitable his son would be at advocating for her. 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 Her mother left when she was 2.5 yrs so she has no knowledge of her medical records. Her father of old age. Social History Notes: pt denies hx of cigarette smoker, alcohol and drug abuse. - POLST Patient has POLST: Yes POLST Status: DNR Meds/Allgy - Home Medications Home Medications: Ambulatory Orders Medication Instructions Recorded Confirmed Donepezil [Aricept] 10 mg PO QPM 07/18/16 04/01/19 Escitalopram [Lexapro] 20 mg PO DAILY 08/28/19 08/28/19 - Allergies Allergies/Adverse Reactions: Allergies Allergy/AdvReac Type Severity Reaction Status Date / Time aspirin Allergy Severe Unknown Verified 09/05/19 15:42 Eggplant Allergy Severe Anaphylaxis Verified 09/05/19 15:42 green pepper Allergy Severe Anaphylaxis Verified 09/05/19 15:42 Penicillins Allergy Severe Unknown Verified 09/05/19 15:42 potato Allergy Severe Anaphylaxis Verified 09/05/19 15:42 tomato Allergy Severe Anaphylaxis Verified 09/05/19 15:42 Review of Systems - Constitutional Constitutional: reports: Weakness. denies: Fever, Chills - Eyes Eyes: denies: Blurred vision, Vision loss, Dipolpia - Ears, Nose & Throat Ears, Nose & Throat: reports: Hearing loss. denies: Nasal pain, Sore throat - Cardiovascular Cariovascular: denies: Palpitations, Chest pain, Edema, Lightheadedness, Syncope, Exertional dyspnea - Respiratory Respiratory: denies: Cough, Sputum production, Wheezing, Orthopnea, SOB at rest - Gastrointestinal Gastrointestinal: denies: Abdominal pain, Abdominal distention, Black stools, Nausea, Vomiting, Coffee grounds emesis - Genitourinary Genitourinary: denies: Dysuria, Frequency, Urgency, Hematuria - Musculoskeletal Musculoskeletal: denies: Muscle pain, Back pain, Muscle aches - Integumentary Integumentary: denies: Rash, Pruritis, Lesions, Dryness - Neurological Neurological: reports: Focal weakness (left-sided), Other (left facial droop) - Psychiatric Psychiatric: denies: Depression, Anxiety - Endocrine Endocrine: denies: Polyuria, Polydypsia - Hematologic/Lymphatic Hematologic/Lymphatic: denies: Anemia, Bruising Prior Level of Functionality: Patient has significantly declined over the past couple weeks with frequent fall. She used to be able to ambulate with her walker prior to this. She has been at [facility] since 08/28/19 for respite care. Exam - Vital Signs Vital Signs: Vital Signs x48h Temp Pulse Pulse Resp BP BP Pulse Ox 09/05/19 20:00 36.9 C 87 16 156/76 H 94 09/05/19 16:27 89 17 169/89 H 96 - Physical Exam General Appearance: positive: No acute distress, Alert Eyes Bilateral: positive: Normal inspection, PERRL, EOMI ENT: positive: Dry mucous membranes Neck: positive: Nml inspection, Thyroid nml, No JVD, Trachea midline Respiratory: positive: Chest non-tender, No respiratory distress, Breath sounds nml. negative: Wheezes, Rales, Rhonchi Cardiovascular: positive: Regular rate & rhythm Abdomen: negative: Non-tender, No organomegaly, Nml bowel sounds, No distention, Guarding, Rebound Back: positive: Nml inspection Skin: positive: Color nml, No rash, Warm, Dry Extremities: positive: Non-tender, No pedal edema Neurologic/Psychiatric: positive: Oriented x3 (oriented to self but not reason for being here), Weakness (left-sided), Facial droop (left) Conclusion/Plan - Problem List (1) Stroke Conclusion/Plan: likely subacute Neurochecks q 4hrs MRI brain and 2D echo ordered for saturday09/07/19 PT/OT. Speech eval Patient will likely need rehab. Social work consulted to help address family dynamic. Patient does not have a designated DPOA Person in the room helping with history was a friend by name Daiana Ware who also used to be a tenant. Qualifiers: CVA mechanism: unspecified Qualified Code(s): I63.9 - Cerebral infarction, unspecified (2) UTI (urinary tract infection) Qualifiers: Urinary tract infection type: site unspecified Hematuria presence: with hematuria Qualified Code(s): N39.0 - Urinary tract infection, site not specified; R31.9 - Hematuria, unspecified (3) Dementia Conclusion/Plan: On donepezil Qualifiers: Dementia type: Alzheimer's disease Dementia behavioral disturbance: without behavioral disturbance (4) Depression Conclusion/Plan: On citalopram - Lab Results Fish Bones: 09/06/19 05:56 09/06/19 05:56 Core Measures - Anticipated LOS I expect patient to be DC'd or transferred within 96 hours.: Yes - DVT/VTE - Prophylaxis VTE/DVT Device ordered at admit?: Yes
[2019-09-06] MEDS ORDERED: ACETAMINOPHEN 1,000 MG/100 ML 100 ML IV ONE (01:42)
[2019-09-06] MEDS: SODIUM CHLORIDE 0.9% 1,000 ML IV SCH ×3 (04:15→21:39)
[2019-09-06 06:21] LABS: BASOPHILS % (AUTO) 0.7 %; EOSINOPHILS # (AUTO) 0.2 10^3/uL (0.0-0.7); EOSINOPHILS % (AUTO) 3.1 %; HGB - HEMOGLOBIN 12.6 g/dL (12.0-16.0); LYMPHOCYTES # (AUTO) 1.1 10^3/uL (1.5-3.5); LYMPHOCYTES % (AUTO) 18.2 %; MEAN CORPUSCULAR HEMOGLOBIN 29.6 pg (27.0-31.0); MEAN CORPUSCULAR HGB CONC 31.7 g/dL (32.0-36.0); MEAN CORPUSCULAR VOLUME 93.4 fL (81.0-99.0); MEAN PLATELET VOLUME 10.8 fL (7.9-10.8); MONOCYTES # (AUTO) 0.6 10^3/uL (0.0-1.0); NEUTROPHILS # (AUTO) 3.9 10^3/uL (1.5-6.6); NEUTROPHILS % (AUTO) 67.3 %; PLT - PLATELET COUNT 156 10^3/uL (130-450); RED BLOOD COUNT 4.25 10^6/uL (4.20-5.40); RED CELL DISTRIBUTION WIDTH 12.7 % (12.0-15.0); WHITE BLOOD COUNT 5.8 x10^3/uL (4.8-10.8)
[2019-09-06 06:27] LABS: CALCIUM 8.7 mg/dL (8.5-10.3); CREATININE 0.5 mg/dL (0.4-1.0)
[2019-09-06] MEDS: SODIUM CHLORIDE FLUSH 0.9% 10 ML SYRINGE IVP SCH ×2 (09:04→18:11)
[2019-09-06] MEDS: POLYETHYLENE GLYCOL 3350 17 GM PACKET PO SCH (09:04)
--- NOTE | 2019-09-06 09:22 | PROVIDER PROGRESS NOTE ---
Assessment/Plan - Problem List (1) Stroke Qualifiers: CVA mechanism: unspecified Qualified Code(s): I63.9 - Cerebral infarction, unspecified Assessment/Plan: The CT scan showed no stroke. Awaiting an MRI tomorrow (today is Sun) Awaiting an Echo. The RN did a bedside swallowing eval and the pt can swallow. Will advance diet. PT and OT ordered. She could only dangle at side of bed, was too weak to do more. She will need SNF for PT and OT rehab. She cannot get aspirin due to an "allergy". Will need to clarify what the allergy was and possibly use Plavix. Statin also indicated. Will check a lipid panel. (2) UTI (urinary tract infection) Qualifiers: Urinary tract infection type: site unspecified Hematuria presence: with hematuria Qualified Code(s): N39.0 - Urinary tract infection, site not specified; R31.9 - Hematuria, unspecified Assessment/Plan: She has more energy overall since yesterday, on iv fluids and iv antibiotics Continue empiric antibiotics Await urine culture results to focus treatment. (3) Generalized weakness Assessment/Plan: The combination of infection and stroke is causing this. PT to continue (4) Dementia Qualifiers: Dementia type: Alzheimer's disease Dementia behavioral disturbance: without behavioral disturbance Assessment/Plan: Continue her home med (5) Depression Assessment/Plan: Continue her home med (6) Multiple falls Assessment/Plan: There were at least 2 recent falls, unexplained. Will check orthostatic VS starting tomorrow. - Current Meds Current Meds: Current Medications Generic Name Dose Route Start Last Admin Trade Name Lana PRN Reason Stop Dose Admin Sodium Chloride 1,000 mls @ 125 mls/hr 09/05/19 22:00 09/06/19 04:15 Normal Saline 0.9% IV 125 mls/hr .Q8H SUZE Administration Polyethylene Glycol 17 gm 09/06/19 09:00 09/06/19 09:04 Miralax PO Not Given DAILY SUZE Sodium Chloride 10 ml 09/06/19 01:00 09/06/19 09:04 Normal Saline Flush 0.9% IVP Not Given 0100,0900,1700 SUZE - Lab Result Fish Bone Diagrams: 09/06/19 05:56 09/06/19 05:56 - Additional Planning My Orders: My Active Orders 09/05/19 20:09 Nutrition Consult [CONS] Routine 09/06/19 Lunch Clear Liquid Diet [DIET] Subjective - Subjective Patient Reports: Feeling Better Nursing Reports: Other (Less weak, able to converse, is oriented to persan and place) Objective Vital Signs: Vital Signs - 24 hr 09/05/19 09/05/19 09/05/19 15:32 16:27 20:00 Temperature 36.9 C 36.9 C Heart Rate 90 89 Heart Rate [ 87 Brachial] Respiratory 20 17 16 Rate Blood Pressure 178/86 H 169/89 H Blood Pressure 156/76 H [Right Brachial artery] O2 Saturation 94 96 94 09/05/19 09/05/19 09/06/19 21:35 23:49 03:05 Temperature 39.7 C H 39.7 C H 36.4 C L Heart Rate 87 Heart Rate [ 91 85 Brachial] Respiratory 16 16 16 Rate Blood Pressure Blood Pressure 149/87 H 143/87 H [Right Brachial artery] O2 Saturation 94 94 95 09/06/19 06:20 Temperature 36.6 C Heart Rate Heart Rate [ 84 Brachial] Respiratory 16 Rate Blood Pressure Blood Pressure 150/85 H [Right Brachial artery] O2 Saturation 95 Oxygen O2 Source Room air I&O (Last 24 Hrs): Intake and Output Totals x24h 09/04/19 09/05/19 09/06/19 23:59 23:59 23:59 Intake Total 100 937.5 Balance 100 937.5 General: Alert HEENT: Other (R gaze preference) Neck: Supple Neuro: Other (L arm and leg weak, R gaze preference, speech is normal) Cardiovascular: No murmurs Respiratory: No respiratory distress, Breath sounds nml Abdomen: Soft, No tenderness Extremities: No edema - Results Results: Laboratory Results WBC 5.8 x10^3/uL (4.8-10.8) 09/06/19 05:56 RBC 4.25 10^6/uL (4.20-5.40) 09/06/19 05:56 Hgb 12.6 g/dL (12.0-16.0) 09/06/19 05:56 Hct 39.7 % (37.0-47.0) 09/06/19 05:56 MCV 93.4 fL (81.0-99.0) 09/06/19 05:56 MCH 29.6 pg (27.0-31.0) 09/06/19 05:56 MCHC 31.7 g/dL (32.0-36.0) L 09/06/19 05:56 RDW 12.7 % (12.0-15.0) 09/06/19 05:56 Plt Count 156 10^3/uL (130-450) 09/06/19 05:56 MPV 10.8 fL (7.9-10.8) 09/06/19 05:56 Neut # (Auto) 3.9 10^3/uL (1.5-6.6) 09/06/19 05:56 Lymph # (Auto) 1.1 10^3/uL (1.5-3.5) L 09/06/19 05:56 [place] # (Auto) 0.6 10^3/uL (0.0-1.0) 09/06/19 05:56 Eos # (Auto) 0.2 10^3/uL (0.0-0.7) 09/06/19 05:56 Baso # (Auto) 0.0 10^3/uL (0.0-0.1) 09/06/19 05:56 Absolute Nucleated RBC 0.00 x10^3/uL 09/06/19 05:56 Nucleated RBC % 0.0 /100WBC 09/06/19 05:56 PT 13.5 secs (9.9-12.6) H 09/05/19 16:45 INR 1.2 (0.8-1.2) 09/05/19 16:45 APTT 27.4 secs (24.9-33.3) 09/05/19 16:45 VBG pH 7.479 (7.31-7.41) H 09/05/19 16:45 VBG pCO2 35.9 mmHg (41-51) L 09/05/19 16:45 VBG pO2 56.5 mmHg (25-47) H 09/05/19 16:45 VBG HCO3 26.1 mmol/L (23-28) 09/05/19 16:45 VBG Total CO2 27.2 mmol/L (24-29) 09/05/19 16:45 VBG O2 Saturation 92.0 % (60-80) H 09/05/19 16:45 VBG Base Excess 2.8 mmol/L (-2 - +2) H 09/05/19 16:45 Sodium 141 mmol/L (135-145) 09/06/19 05:56 Potassium 3.6 mmol/L (3.5-5.0) 09/06/19 05:56 Chloride 105 mmol/L (101-111) 09/06/19 05:56 Carbon Dioxide 26 mmol/L (21-32) 09/06/19 05:56 Anion Gap 10.0 (6-13) 09/06/19 05:56 BUN 11 mg/dL (6-20) 09/06/19 05:56 Creatinine 0.5 mg/dL (0.4-1.0) 09/06/19 05:56 Estimated GFR (MDRD) 118 (>89) 09/06/19 05:56 Glucose 107 mg/dL (70-100) H 09/06/19 05:56 Calcium 8.7 mg/dL (8.5-10.3) 09/06/19 05:56 Total Bilirubin 0.9 mg/dL (0.2-1.0) 09/05/19 16:45 AST 13 IU/L (10-42) 09/05/19 16:45 ALT < 10 IU/L (10-60) L 09/05/19 16:45 Alkaline Phosphatase 58 IU/L (42-121) 09/05/19 16:45 Total Protein 7.1 g/dL (6.7-8.2) 09/05/19 16:45 Albumin 3.5 g/dL (3.2-5.5) 09/05/19 16:45 Globulin 3.6 g/dL (2.1-4.2) 09/05/19 16:45 Albumin/Globulin Ratio 1.0 (1.0-2.2) 09/05/19 16:45 Lipase 26 U/L (22-51) 09/05/19 16:45 TSH 2.34 uIU/mL (0.34-5.60) 09/05/19 16:45 Urine Color YELLOW 09/05/19 17:10 Urine Clarity HAZY (CLEAR) 09/05/19 17:10 Urine pH 6.0 PH (5.0-7.5) 09/05/19 17:10 Ur Specific [place] 1.025 (1.002-1.030) 09/05/19 17:10 Urine Protein 30 mg/dL (NEGATIVE) H 09/05/19 17:10 Urine Glucose (UA) NEGATIVE mg/dL (NEGATIVE) 09/05/19 17:10 Urine Ketones 40 mg/dL (NEGATIVE) H 09/05/19 17:10 Urine Occult Blood SMALL (NEGATIVE) H 09/05/19 17:10 Urine Nitrite POSITIVE (NEGATIVE) H 09/05/19 17:10 Urine Bilirubin NEGATIVE (NEGATIVE) 09/05/19 17:10 Urine Urobilinogen 0.2 (NORMAL) E.U./dL (NORMAL) 09/05/19 17:10 Ur Leukocyte Esterase NEGATIVE (NEGATIVE) 09/05/19 17:10 Urine RBC 11-25 /HPF (0-5) H 09/05/19 17:10 Urine WBC 11-25 /HPF (0-5) H 09/05/19 17:10 Ur Squamous Epith Cells NONE SEEN (<= Few) 09/05/19 17:10 Urine Bacteria Many /HPF (None Seen) H 09/05/19 17:10 Ur Microscopic Review INDICATED 09/05/19 17:10 Urine Culture Comments INDICATED 09/05/19 17:10 - Procedures Procedures: Procedures DILATION OF ESOPHAGUS, ENDO (04/11/16)
[2019-09-06] MEDS: cefTRIAXone 1 GM in SODIUM CHLORIDE 0.9% MINIBAG 100 ML IV SCH (18:11)
[2019-09-06] MEDS ORDERED: ACETAMINOPHEN 325 MG TABLET PO PRN (22:00)
[2019-09-07] MEDS: SODIUM CHLORIDE 0.9% 1,000 ML IV SCH ×3 (05:28→23:45)
[2019-09-07] MEDS: SODIUM CHLORIDE FLUSH 0.9% 10 ML SYRINGE IVP SCH ×3 (05:28→17:19)
[2019-09-07 05:57] LABS: BASOPHILS % (AUTO) 0.6 %; EOSINOPHILS # (AUTO) 0.3 10^3/uL (0.0-0.7); HGB - HEMOGLOBIN 11.7 g/dL (12.0-16.0); LYMPHOCYTES # (AUTO) 1.1 10^3/uL (1.5-3.5); LYMPHOCYTES % (AUTO) 21.4 %; MEAN CORPUSCULAR HEMOGLOBIN 29.8 pg (27.0-31.0); MEAN CORPUSCULAR VOLUME 93.1 fL (81.0-99.0); MEAN PLATELET VOLUME 10.1 fL (7.9-10.8); MONOCYTES # (AUTO) 0.6 10^3/uL (0.0-1.0); MONOCYTES % (AUTO) 11.3 %; NEUTROPHILS # (AUTO) 3.1 10^3/uL (1.5-6.6); NEUTROPHILS % (AUTO) 60.7 %; PLT - PLATELET COUNT 151 10^3/uL (130-450); RED BLOOD COUNT 3.93 10^6/uL (4.20-5.40); RED CELL DISTRIBUTION WIDTH 12.4 % (12.0-15.0)
[2019-09-07 06:03] LABS: CALCIUM 8.2 mg/dL (8.5-10.3); CREATININE 0.4 mg/dL (0.4-1.0)
[2019-09-07 06:18] LABS: CHOL/HDL RATIO 4.7 (<4.4); CHOLESTEROL 178 mg/dL; HDL CHOLESTEROL 38 mg/dL; LDL CHOLESTEROL,CALCULATED 126 mg/dL; LDL/HDL RATIO 3.3 (<4.4); VLDL CHOLESTEROL 14 mg/dL
[2019-09-07] MEDS: POLYETHYLENE GLYCOL 3350 17 GM PACKET PO SCH (09:19)
[2019-09-07] MEDS: DOCUSATE SODIUM 250 MG CAPSULE PO SCH (09:19)
[2019-09-07] MEDS: SENNA 8.6 MG TABLET PO SCH (09:21)
--- NOTE | 2019-09-07 09:23 | PROVIDER PROGRESS NOTE ---
Assessment/Plan - Problem List (1) Stroke Qualifiers: CVA mechanism: unspecified Qualified Code(s): I63.9 - Cerebral infarction, unspecified Assessment/Plan: The MRI does confirm a right brain stroke. Awaiting Echo. When she is more alert, plan on questioning her what the aspirin side effect was, to use daily aspirin possibly. Otherwise daily Plavix plus statin. PT and OT and swallow eval started. (2) UTI (urinary tract infection) Qualifiers: Urinary tract infection type: site unspecified Hematuria presence: with hematuria Qualified Code(s): N39.0 - Urinary tract infection, site not specified; R31.9 - Hematuria, unspecified Assessment/Plan: Impression was that her generalized lethargy and weakness was from the UTI and she is slowly having more overall energy. She is on empiric IV Ceftriaxone Await urine culture results to transition to oral antibiotic She did not have blood cultures drawn (3) Generalized weakness Assessment/Plan: Continue gentle iv hydration, antibiotics and starting PT. She will need a SNF for rehab. (4) Dementia Qualifiers: Dementia type: Alzheimer's disease Dementia behavioral disturbance: without behavioral disturbance Assessment/Plan: As she gains strength back, will assess her understanding and orientation. She is on her 2 home medications to treat dementia (5) Depression Assessment/Plan: He remains on her home antidepressant med (6) Multiple falls Assessment/Plan: The etiology is unclear. Orthostatic vital sign checks ordered to be done daily (7) Malnutrition Assessment/Plan: The swallowing eval was done by [facility]. The patient can swallow, but she has very poorly fitting dentures and has had very poor nutrition due to inability to chew. Fotr that reason, the advised diet was pureed diet but thin liquids are OK. Also, meds need to be crushed and given in applesauce. Aspiration precautions for meals: meals in a chair or in full Fowlers position in bed then remain sitiing upright for 30 min. I will enter all those orders. - Current Meds Current Meds: Current Medications Generic Name Dose Route Start Last Admin Trade Name Freq PRN Reason Stop Dose Admin Docusate Sodium 250 - 500 mg 09/07/19 09:00 09/07/19 09:19 Colace 250mg Capsule PO Not Given DAILY SUZE Sodium Chloride 1,000 mls @ 125 mls/hr 09/05/19 22:00 09/07/19 05:28 Normal Saline 0.9% IV 125 mls/hr .Q8H SUZE Administration Ceftriaxone Sodium 1 gm/ 100 mls @ 200 mls/hr 09/06/19 18:00 09/06/19 19:02 Sodium Chloride IV Infused Q24H SUZE Infusion Polyethylene Glycol 17 gm 09/06/19 09:00 09/07/19 09:19 Miralax PO 17 gm DAILY SUZE Administration Senna 8.6 - 17.2 mg 09/07/19 09:00 09/07/19 09:21 Senokot PO Not Given DAILY SUZE Sodium Chloride 10 ml 09/06/19 01:00 09/07/19 09:20 Normal Saline Flush 0.9% IVP Not Given 0100,0900,1700 SUZE - Lab Result Fish Bone Diagrams: 09/07/19 05:43 09/07/19 05:43 - Additional Planning My Orders: My Active Orders 09/06/19 Lunch DIET [Soft Mechanical Diet] [DIET] 09/07/19 09:00 Docusate Sodium 250Mg Capsule [Colace 250Mg Capsule] 250 - 500 mg PO DAILY Senna [Senokot] 8.6 - 17.2 mg PO DAILY Subjective - Subjective Patient Reports: Resting Comfortably Objective Vital Signs: Vital Signs - 24 hr 09/06/19 09/06/19 09/06/19 11:20 14:01 16:00 Temperature 37.1 C 37.0 C Heart Rate [ 89 88 Brachial] Heart Rate [ 81 Supine] Respiratory 16 16 Rate Respiratory 16 Rate [Without Activity] Blood Pressure [Left Brachial artery] Blood Pressure 139/70 H 139/71 H [Right Brachial artery] Blood Pressure 139/74 H [Supine] O2 Saturation 95 95 O2 Saturation [ 95 Without Activity] 09/06/19 09/07/19 09/07/19 21:00 00:29 05:50 Temperature 37.1 C 36.9 C 37.0 C Heart Rate [ 94 93 86 Brachial] Heart Rate [ Supine] Respiratory 12 14 18 Rate Respiratory Rate [Without Activity] Blood Pressure 162/79 H 152/95 H [Left Brachial artery] Blood Pressure 152/77 H [Right Brachial artery] Blood Pressure [Supine] O2 Saturation 95 96 95 O2 Saturation [ Without Activity] 09/07/19 07:46 Temperature 36.8 C Heart Rate [ 84 Brachial] Heart Rate [ Supine] Respiratory 12 Rate Respiratory Rate [Without Activity] Blood Pressure [Left Brachial artery] Blood Pressure 168/84 H [Right Brachial artery] Blood Pressure [Supine] O2 Saturation 95 O2 Saturation [ Without Activity] Oxygen O2 Source [Without Activity] Room air O2 Source Room air I&O (Last 24 Hrs): Intake and Output Totals x24h 09/05/19 09/06/19 09/07/19 23:59 23:59 23:59 Intake Total 100 3377.5 977.083 Output Total 600 Balance 100 3377.5 377.083 General: Other (Appears comfortable on her R side) HEENT: Mucous membr. moist/pink, Other (R gaze preference) Neuro: Other (L arm and leg has marked weakness) Cardiovascular: Regular rate, No murmurs Respiratory: No respiratory distress, Breath sounds nml Abdomen: Soft Extremities: No edema, Other ((+) skin tyenting) - Results Results: Laboratory Results WBC 5.0 x10^3/uL (4.8-10.8) 09/07/19 05:43 RBC 3.93 10^6/uL (4.20-5.40) L 09/07/19 05:43 Hgb 11.7 g/dL (12.0-16.0) L 09/07/19 05:43 Hct 36.6 % (37.0-47.0) L 09/07/19 05:43 MCV 93.1 fL (81.0-99.0) 09/07/19 05:43 MCH 29.8 pg (27.0-31.0) 09/07/19 05:43 MCHC 32.0 g/dL (32.0-36.0) 09/07/19 05:43 RDW 12.4 % (12.0-15.0) 09/07/19 05:43 Plt Count 151 10^3/uL (130-450) 09/07/19 05:43 MPV 10.1 fL (7.9-10.8) 09/07/19 05:43 Neut # (Auto) 3.1 10^3/uL (1.5-6.6) 09/07/19 05:43 Lymph # (Auto) 1.1 10^3/uL (1.5-3.5) L 09/07/19 05:43 [place] # (Auto) 0.6 10^3/uL (0.0-1.0) 09/07/19 05:43 Eos # (Auto) 0.3 10^3/uL (0.0-0.7) 09/07/19 05:43 Baso # (Auto) 0.0 10^3/uL (0.0-0.1) 09/07/19 05:43 Absolute Nucleated RBC 0.00 x10^3/uL 09/07/19 05:43 Nucleated RBC % 0.0 /100WBC 09/07/19 05:43 PT 13.5 secs (9.9-12.6) H 09/05/19 16:45 INR 1.2 (0.8-1.2) 09/05/19 16:45 APTT 27.4 secs (24.9-33.3) 09/05/19 16:45 VBG pH 7.479 (7.31-7.41) H 09/05/19 16:45 VBG pCO2 35.9 mmHg (41-51) L 09/05/19 16:45 VBG pO2 56.5 mmHg (25-47) H 09/05/19 16:45 VBG HCO3 26.1 mmol/L (23-28) 09/05/19 16:45 VBG Total CO2 27.2 mmol/L (24-29) 09/05/19 16:45 VBG O2 Saturation 92.0 % (60-80) H 09/05/19 16:45 VBG Base Excess 2.8 mmol/L (-2 - +2) H 09/05/19 16:45 Sodium 142 mmol/L (135-145) 09/07/19 05:43 Potassium 3.4 mmol/L (3.5-5.0) L 09/07/19 05:43 Chloride 107 mmol/L (101-111) 09/07/19 05:43 Carbon Dioxide 26 mmol/L (21-32) 09/07/19 05:43 Anion Gap 9.0 (6-13) 09/07/19 05:43 BUN 11 mg/dL (6-20) 09/07/19 05:43 Creatinine 0.4 mg/dL (0.4-1.0) 09/07/19 05:43 Estimated GFR (MDRD) 152 (>89) 09/07/19 05:43 Glucose 109 mg/dL (70-100) H 09/07/19 05:43 Calcium 8.2 mg/dL (8.5-10.3) L 09/07/19 05:43 Total Bilirubin 0.9 mg/dL (0.2-1.0) 09/05/19 16:45 AST 13 IU/L (10-42) 09/05/19 16:45 ALT < 10 IU/L (10-60) L 09/05/19 16:45 Alkaline Phosphatase 58 IU/L (42-121) 09/05/19 16:45 Total Protein 7.1 g/dL (6.7-8.2) 09/05/19 16:45 Albumin 3.5 g/dL (3.2-5.5) 09/05/19 16:45 Globulin 3.6 g/dL (2.1-4.2) 09/05/19 16:45 Albumin/Globulin Ratio 1.0 (1.0-2.2) 09/05/19 16:45 Triglycerides 68 mg/dL (-149) 09/07/19 05:43 Cholesterol 178 mg/dL (-199) 09/07/19 05:43 LDL Cholesterol, Calc 126 mg/dL (-129) 09/07/19 05:43 VLDL Cholesterol 14 mg/dL 09/07/19 05:43 HDL Cholesterol 38 mg/dL (60-) L 09/07/19 05:43 LDL/HDL Ratio 3.3 (<4.4) 09/07/19 05:43 Cholesterol/HDL Ratio 4.7 (<4.4) 09/07/19 05:43 Lipase 26 U/L (22-51) 09/05/19 16:45 TSH 2.34 uIU/mL (0.34-5.60) 09/05/19 16:45 Urine Color YELLOW 09/05/19 17:10 Urine Clarity HAZY (CLEAR) 09/05/19 17:10 Urine pH 6.0 PH (5.0-7.5) 09/05/19 17:10 Ur Specific [place] 1.025 (1.002-1.030) 09/05/19 17:10 Urine Protein 30 mg/dL (NEGATIVE) H 09/05/19 17:10 Urine Glucose (UA) NEGATIVE mg/dL (NEGATIVE) 09/05/19 17:10 Urine Ketones 40 mg/dL (NEGATIVE) H 09/05/19 17:10 Urine Occult Blood SMALL (NEGATIVE) H 09/05/19 17:10 Urine Nitrite POSITIVE (NEGATIVE) H 09/05/19 17:10 Urine Bilirubin NEGATIVE (NEGATIVE) 09/05/19 17:10 Urine Urobilinogen 0.2 (NORMAL) E.U./dL (NORMAL) 09/05/19 17:10 Ur Leukocyte Esterase NEGATIVE (NEGATIVE) 09/05/19 17:10 Urine RBC 11-25 /HPF (0-5) H 09/05/19 17:10 Urine WBC 11-25 /HPF (0-5) H 09/05/19 17:10 Ur Squamous Epith Cells NONE SEEN (<= Few) 09/05/19 17:10 Urine Bacteria Many /HPF (None Seen) H 09/05/19 17:10 Ur Microscopic Review INDICATED 09/05/19 17:10 Urine Culture Comments INDICATED 09/05/19 17:10 - Procedures Procedures: Procedures DILATION OF ESOPHAGUS, ENDO (04/11/16)
--- NOTE | 2019-09-07 09:31 | MRI Report ---
Reason: left-sided weakness, frequent falls Procedure Date: 09/07/2019 Accession Number: [id number] / [id number] Procedure: MRI - Brain W/O CPT Code: FULL RESULT: EXAM: MRI BRAIN WITHOUT CONTRAST EXAM DATE: 09/07/2019 08:49 AM. CLINICAL HISTORY: Left-sided weakness, frequent falls. COMPARISON: HEAD W/O 09/05/2019 3:56 PM HEAD W/O 08/26/2019 11:58 AM HEAD W/O 02/14/2018 11:21 AM. TECHNIQUE: Multiplanar, multisequence T1-weighted and fluid-sensitive MR sequences of the brain were performed. Sequences optimized for routine evaluation. Other: None. IV Contrast: None. FINDINGS: Brain Volume: Age-related volume loss is present. Parenchyma/Dura: There is an oval 14 mm focus of signal abnormality with increased diffusion noted at the junction of the right posterior limb of the internal capsule and hewitt radiata. This demonstrates subtle smaller focus of decreased ADC map signal. Increased T2/FLAIR with decreased T1 signal is present. Additionally, a punctate 3.5 mm focus of increased diffusion signal is seen in the inferolateral right putamen. Mild confluent periventricular and patchy deep white matter T2/FLAIR bright signal is seen in the cerebral hemispheres and to a lesser extent brainstem. No cortical signal abnormality. No intracranial mass or hemorrhage. Ventricles/Cisterns: Age-related prominence to the ventricular system and overlying cortical sulci is noted. No hydrocephalus. No abnormal extra-axial fluid collection or hemorrhage. Orbits: Unremarkable. Note is made of right lens removal. Sella Turcica: The pituitary gland, cavernous sinuses, suprasellar cistern and optic chiasm are unremarkable. IAC: Symmetric and unremarkable. Vasculature: Normal signal flow void is seen in the major arterial structures at the skull base. Sinuses: No acute appearing sinus disease. Bones: No focal pathologic appearing marrow signal changes. Mild to moderate degenerative changes seen in the right TMJ. Spondylosis with degenerative disk and facet changes seen at partially visualized C3-C4 level in the upper cervical spine. Other: There are small, 6 and 13 mm, subcutaneous nodules seen in the left paramedian frontal and anterior parietal region. These may represent trichilemmal cysts. IMPRESSION: 1. There is an oval 14 mm infarct in the junction of the right posterior limb of the internal capsule and hewitt radiata. Punctate 3.5 mm infarct is seen inferolaterally in the right putamen. These are likely late acute to early subacute in timing. No associated hemorrhage. 2. Senescent change. Age-related atrophy. White matter T2/FLAIR bright signal is seen in the cerebral hemispheres and to a lesser extent brainstem. This is nonspecific. This can be seen secondary to small vessel ischemic change. RADIA The call report notification system was initiated by Dr. Dex Paz at 09:17 AM on 09/07/2019. The above call report findings were discussed with Referring Treating Physician by Dr. Dex Paz at 09:23 AM on 09/07/2019.
[2019-09-07] MEDS: cefTRIAXone 1 GM in SODIUM CHLORIDE 0.9% MINIBAG 100 ML IV SCH (17:16)
[2019-09-07] MEDS: SACCHAROMYCES BOULARDII 250 MG CAPSULE PO SCH (17:16)
[2019-09-07] MEDS: MULTIVITAMIN W/MINERALS TABLET PO SCH (17:17)
[2019-09-07] MEDS: MEMANTINE 5 MG TABLET PO SCH (20:56)
[2019-09-07] MEDS ORDERED: ATORVASTATIN 40 MG TABLET PO SCH (21:00)
[2019-09-07] MEDS ORDERED: DONEPEZIL 5 MG TABLET PO SCH (21:00)
[2019-09-08] MEDS: SODIUM CHLORIDE FLUSH 0.9% 10 ML SYRINGE IVP SCH ×2 (05:14→09:01)
[2019-09-08 06:06] LABS: BASOPHILS # (AUTO) 0.1 10^3/uL (0.0-0.1); EOSINOPHILS # (AUTO) 0.2 10^3/uL (0.0-0.7); EOSINOPHILS % (AUTO) 4.8 %; HGB - HEMOGLOBIN 11.4 g/dL (12.0-16.0); LYMPHOCYTES % (AUTO) 20.3 %; MEAN CORPUSCULAR HEMOGLOBIN 29.6 pg (27.0-31.0); MEAN CORPUSCULAR HGB CONC 31.3 g/dL (32.0-36.0); MEAN CORPUSCULAR VOLUME 94.5 fL (81.0-99.0); MEAN PLATELET VOLUME 10.5 fL (7.9-10.8); MONOCYTES # (AUTO) 0.5 10^3/uL (0.0-1.0); MONOCYTES % (AUTO) 10.4 %; NEUTROPHILS # (AUTO) 3.1 10^3/uL (1.5-6.6); NEUTROPHILS % (AUTO) 62.5 %; PLT - PLATELET COUNT 145 10^3/uL (130-450); RED BLOOD COUNT 3.85 10^6/uL (4.20-5.40); RED CELL DISTRIBUTION WIDTH 12.5 % (12.0-15.0)
[2019-09-08] MEDS: SODIUM CHLORIDE 0.9% 1,000 ML IV SCH (06:17)
[2019-09-08 06:38] LABS: CALCIUM 8.2 mg/dL (8.5-10.3); CREATININE 0.4 mg/dL (0.4-1.0)
[2019-09-08] MEDS: MEMANTINE 5 MG TABLET PO SCH (08:48)
[2019-09-08] MEDS: SACCHAROMYCES BOULARDII 250 MG CAPSULE PO SCH (08:48)
[2019-09-08] MEDS: SENNA 8.6 MG TABLET PO SCH (08:49)
[2019-09-08] MEDS: POLYETHYLENE GLYCOL 3350 17 GM PACKET PO SCH (08:51)
[2019-09-08] MEDS: MULTIVITAMIN W/MINERALS TABLET PO SCH (08:51)
[2019-09-08] MEDS: DOCUSATE SODIUM 250 MG CAPSULE PO SCH (08:51)
[2019-09-08] MEDS ORDERED: CALCIUM CARB (OYSTER SHELL) 500 MG TABLET PO SCH (09:00)
[2019-09-08] MEDS ORDERED: ESCITALOPRAM 10 MG TABLET PO SCH (09:00)
[2019-09-08] MEDS ORDERED: MULTIVITAMIN TABLET PO SCH (09:00)
[2019-09-08] MEDS ORDERED: CALCIUM CARBONATE CHEW 500 MG TABLET PO SCH (09:00)
[2019-09-08] MEDS: CLOPIDOGREL 75 MG TABLET PO SCH ×2 (09:01→09:03)
--- NOTE | 2019-09-08 11:39 | Discharge Plan ---
"Discharge Plan for SNF / [facility] - Discharge Plan And Transition Orders Problem Reviewed?: Yes Disposition: 03 SNF DC/Xfer Condition: Stable Allergies and Adverse Reactions: Allergies Allergy/AdvReac Type Severity Reaction Status Date / Time aspirin Allergy Severe Unknown Verified 09/05/19 15:42 Eggplant Allergy Severe Anaphylaxis Verified 09/05/19 15:42 green pepper Allergy Severe Anaphylaxis Verified 09/05/19 15:42 Penicillins Allergy Severe Unknown Verified 09/05/19 15:42 potato Allergy Severe Anaphylaxis Verified 09/05/19 15:42 tomato Allergy Severe Anaphylaxis Verified 09/05/19 15:42 Health Concerns: stroke, UTI Plan of Treatment: continue Plavix, Lipitor, and continue PT/OT training. continue antibiotics for UTI Care Goals: stabilization and improvement of pt's medical conditions Assessment: stroke with left side weakness, and UTI was found in hospital - SNF / RETIREMENT Transition Orders Admit to (Facility): [facility] Under the care of (Name): Diallo Pastor Discharge Diagnosis: stroke, UTI, left side weakness, dementia, depression, multiple falls, malnutrition Medicare Certification Statement: I certify that Post Hospital detention care is medically necessary on a continuing basis for any of the conditions for which she/he is receiving care during hospitalization. Notify PCP of admission and forward orders to primary provider for signature. Weight on admission and: Daily Call PCP immediately if weight increases by: 2 kg Other Notification Orders: Call PCP immediately if patient develops dyspnea, chest pain/tightness or edema. House Bowel Program: Yes Additional Bowel Program Orders: If no BM after 2 days, nurse may give M.O.M. 30ml PO PRN and/or ducolax Supp 1 ND and/or LAVINIA 250mg P.O., and/or senna 1-2 tabs PO. On day 3 nurse may give repeat above order until residents constipation is resolved. Annual Influenza Vaccine (between Jul 12 and February 08): Yes Two-step PPD per [facility] [phone] or approved exception documents: Yes Treatments & Other Orders: pt may followup Dr. Soliz when pt is arrival to [facility], continue PT/OT. Pt can swallow but she has poor fitting dentures, advise pt followup dentist for fitting dentures. Medication Orders: PLEASE REFER TO THE DISCHARGE MEDICATION LIST. Insulin Orders?: No - Medications New Prescriptions: cephALEXin [Keflex] 250 mg PO Q6HR #28 capsule Atorvastatin [Lipitor] 40 mg PO QPM #10 tablet Clopidogrel [Plavix] 75 mg PO DAILY #10 tablet Saccharomyces Boulardii [Florastor] 250 mg PO BID #14 capsule - Diet Type: Geriatric Texture: Dysphagia mech Liquids: Thin May have monthly special meal: Yes - Therapies | Activity Therapy: Evaluation | Treat if indicated: PT, OT Rehabilitation Potential: Maximize functional status Activity: Activity as Tolerated Additional Instructions: pt may [facility] when pt is arrival to [facility], continue PT/OT. Pt can swallow but she has poor fitting dentures, advise pt followup dentist for fitting dentures."
[2019-09-08 11:50] VITALS: BP 146/70
[2019-09-08] MEDS ORDERED: cephALEXin 250 MG CAPSULE PO SCH (12:00)
--- NOTE | 2019-09-08 12:26 | Ultrasound Report ---
Reason: stroke Procedure Date: 09/08/2019 Accession Number: [id number] / [id number] Procedure: US - Carotid Doppler Complete CPT Code: FULL RESULT: EXAM: BILATERAL CAROTID AND VERTEBRAL ARTERY DUPLEX DOPPLER ULTRASOUND: EXAM DATE: 09/08/2019 11:50 AM CLINICAL HISTORY: Cerebrovascular accident. Left-sided weakness. COMPARISON: None. TECHNIQUE: Grayscale imaging, color Doppler, and duplex spectral Doppler were used to evaluate the carotid and vertebral arteries bilaterally. Static images were obtained. FINDINGS: There is minor intimal thickening and atherosclerotic plaque formation seen involving bilateral carotid bulbs. Minor atherosclerotic disease in the proximal external carotid arteries is also seen. There is no elevation of the peak systolic velocities or ratios to suggest stenosis. Normal antegrade flow is present in bilateral vertebral arteries. VELOCITIES (cm/sec): Right CCA mid: PSV 64 cm/sec CCA dist: PSV 61 cm/sec ICA prox: PSV 51 cm/sec, EDV 13 cm/sec ICA mid: PSV 106 cm/sec, EDV 30 cm/sec ICA dist: PSV 70 cm/sec, EDV 18 cm/sec ECA: PSV 70 cm/sec Vert: PSV 58 cm/sec ICA/CCA: 1.66 Left CCA mid: PSV 67 cm/sec CCA dist: PSV 48 cm/sec ICA prox: PSV 48 cm/sec, EDV 16 cm/sec ICA mid: PSV 86 cm/sec, EDV 27 cm/sec ICA dist: PSV 76 cm/sec, EDV 23 cm/sec ECA: PSV 78 cm/sec Vert: PSV 67 cm/sec ICA/CCA: 1.28 ICA diameter stenosis: Right: <50% by velocity and <70% by NASCET criteria. Left: <50% by velocity and <70% by NASCET criteria. IMPRESSION: 1. Minimal bilateral carotid artery plaquing. 2. In the right carotid artery there are no elevated carotid artery velocities to suggest hemodynamically significant stenosis. 3. In the left carotid artery there are no elevated carotid artery velocities to suggest hemodynamically significant stenosis. 4. Normal antegrade flow is present in bilateral vertebral arteries. General Recommendations: Stenosis =50% ICA - Follow-up ultrasound 6-12 months Stenosis <50% ICA - High Risk Patient with plaque - Follow-up ultrasound 1-2 years Normal Study but High Risk Patient - Follow-up ultrasound 3-5 years Management recommendations and diagnostic criteria are based on current IAC endorsed standards in Carotid Artery Stenosis: Grayscale and Doppler Ultrasound Diagnosis. Validated velocity measurements with angiographic measurements and velocity criteria are extrapolated from diameter data as defined by the Society of Radiologists in Ultrasound Consensus Conference Radiology 2003; 229;340-346. RADIA
--- NOTE | 2019-09-08 12:35 | DISCHARGE SUMMARY ---
Discharge Summary Admit Date: 09/05/19 Discharge Date: 09/08/19 Discharging Provider: [place] Primary Care Provider: Osvaldo Monroy Condition at Discharge: Stable Discharge Disposition: 03 SNF DC/Xfer Discharge Facility Name: [facility] - DIAGNOSES Admission Diagnoses: (1) Stroke (2) UTI (urinary tract infection) (3) Dementia (4) Depression Discharge Diagnoses with Status of Each Condition: (1) Stroke stable, continue PT/OT/ST in [facility] pt present left weakness, MRI reveals right brain infarction stroke without hem orrhage. pt is prescribed Plavix, pt is allergy to Aspirin, Lipitor. (2) UTI (urinary tract infection) UA analysis and culture reveal positive for Ecoli infection, with sensitive to all antibiotics. pt is prescribed Keflex to finish the treatment course. 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 Robb's HPI on 09/05/19 Patient is an 84 y/o female who presented to the ED from [place] with severe weakness. Staff and friend were concern about the significant change in patient's overall status and felt she should be evaluated in the ED. It is reported that up until about 1 week ago the patient was living in her own home in [place]. She had a private caregiver who came to her house for a few hours during the week. Her son lives on the property but does not see her or come to the house often. Up until 2 weeks ago, she could walk into [facility] using her walker. She was found on the floor on 08/24/19 and brought to the ED. Work up was largely unremarkable so she was discharged from the ED. She fell again on 08/28/19 and was again brought to the ED where work up was again unremarkable. She went to [place] for respite care and that is where she presents from. In the ED she was found to have generalized weakness. However she had significantly more weakness on the left side than the right, with a left facial droop. She is not able to carry on a full conversation. CT of brain without contrast was largely unremarkable. UA done was suggestive of a UTI. As a result patient is being admitted for further workup and treatment Patient does not have a designated DPOA. There has been concern raised as to how suitable his son would be at advocating for her. - HOSPITAL COURSE Hospital Course: pt was found to left side weakness. MRI reveals right brain infarction stroke without hemorrhage. Pt's CT of head, US of Carotid, and ECHO were unremarkable. pt was treated with Plavix at my shift, Lipitor. PT/OT evaluated and treated for pt. pt can swallow but pt had poor denture. pt was d/c to SNF for further recovery care from her stroke. The detail hospital care is as the follow 1) Stroke stable, continue PT/OT/ST in [facility] pt present left weakness, MRI reveals right brain infarction stroke without hemorrhage. pt is prescribed Plavix, pt is allergy to Aspirin, Lipitor. (2) UTI (urinary tract infection) UA analysis and culture reveal positive for Ecoli infection, with sensitive to all antibiotics. pt is prescribed Keflex to finish the treatment course. 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 - ALLERGIES Allergies/Adverse Reactions: Allergies Allergy/AdvReac Type Severity Reaction Status Date / Time aspirin Allergy Severe Unknown Verified 09/05/19 15:42 Eggplant Allergy Severe Anaphylaxis Verified 09/05/19 15:42 green pepper Allergy Severe Anaphylaxis Verified 09/05/19 15:42 Penicillins Allergy Severe Unknown Verified 09/05/19 15:42 potato Allergy Severe Anaphylaxis Verified 09/05/19 15:42 tomato Allergy Severe Anaphylaxis Verified 09/05/19 15:42 - MEDICATIONS Home Medications: Ambulatory Orders Medication Instructions Recorded Confirmed Donepezil [Aricept] 10 mg PO QPM 07/18/16 09/06/19 Escitalopram [Lexapro] 20 mg PO DAILY 08/28/19 09/06/19 Acetaminophen 325 mg PO Q6H PRN 09/06/19 09/06/19 Calcium Carbonate [Calcium] 600 mg PO DAILY 09/06/19 09/06/19 Memantine HCl 10 mg PO BID 09/06/19 09/06/19 Multivitamin [Theragran] 1 tab PO DAILY 09/06/19 09/06/19 Omeprazole 20 mg PO QDAC 09/06/19 09/06/19 Atorvastatin [Lipitor] 40 mg PO QPM #10 tablet 09/08/19 Clopidogrel [Plavix] 75 mg PO DAILY #10 tablet 09/08/19 Saccharomyces Boulardii [Florastor] 250 mg PO BID #14 capsule 09/08/19 cephALEXin [Keflex] 250 mg PO Q6HR #28 capsule 09/08/19 - PHYSICAL EXAM AT DISCHARGE General Appearance: positive: No acute distress, Alert. negative: Lethargic Eyes Bilateral: positive: Normal inspection, PERRL, No lid inflammation, Conjunctivae nml ENT: positive: ENT inspection nml, Pharynx nml, No signs of dehydration. negative: Purulent nasal drainage Neck: positive: Nml inspection, Thyroid nml, No JVD, Trachea midline. negative: Thyromegaly, Lymphadenopathy (R), Lymphadenopathy (L), Stiff neck, Tracheal deviation Respiratory: positive: Chest non-tender, No respiratory distress, Breath sounds nml. negative: Wheezes, Rales, Rhonchi Cardiovascular: positive: Regular rate & rhythm, No murmur, No gallop. negative: Irregularly irregular, Extrasystoles, Tachycardia, Bradycardia, JVD present, Systolic murmur, Diastolic murmur Peripheral Pulses: positive: 2+ Abdomen: positive: Non-tender, No organomegaly, Nml bowel sounds, No distention. negative: Tenderness, Guarding, Rebound Back: positive: Nml inspection. negative: CVA tenderness (R), CVA tenderness (L) Skin: positive: Color nml, No rash, Warm, Dry. negative: Cyanosis, Diaphoresis, Pallor Extremities: positive: Non-tender, Nml appearance. negative: Calf tenderness, Cesia's sign/cords Neurologic/Psychiatric: positive: Mood/affect nml, Weakness, Sensory loss. negative: Facial droop, Slurred/abnml speech, Depressed mood/affect - LABS Result Diagrams: 09/08/19 05:56 09/08/19 06:24 - FOLLOW UP Follow Up: pt may followup Dr. Soliz when pt is arrival to [facility], continue PT/OT. Pt can swallow but she has poor fitting dentures, advise pt followup dentist for fitting dentures. - TIME SPENT Time Spent in Discharge (Minutes): 50
[2019-09-08] MEDS ORDERED: ATORVASTATIN 40 MG TABLET PO SCH (21:00)
== END 2019-09-08 14:15 | DRG 65 ==
LOC: EDUNIT# → ED 15:32 → MS2 18:55
PROVIDERS: ADMIT Internal Medicine; ATTEND Nurse Practitioner Gerontology
DX: I63.9 Cerebral infarction, unspecified (principal); G81.94 Hemiplegia, unspecified affecting left nondominant side; I10 Essential (primary) hypertension; I25.119 Atherosclerotic heart disease of native coronary artery with unspecified angina pectoris; N39.0 Urinary tract infection, site not specified; Z68.1 Body mass index [BMI] 19.9 or less, adult; E44.0 Moderate protein-calorie malnutrition; R29.810 Facial weakness; B96.20 Unspecified Escherichia coli [E. coli] as the cause of diseases classified elsewhere; R31.9 Hematuria, unspecified; R63.3 Feeding difficulties; M19.90 Unspecified osteoarthritis, unspecified site; M81.0 Age-related osteoporosis without current pathological fracture; F32.9 Major depressive disorder, single episode, unspecified; I48.91 Unspecified atrial fibrillation; I35.1 Nonrheumatic aortic (valve) insufficiency; J43.9 Emphysema, unspecified; G30.9 Alzheimer's disease, unspecified; F02.80 Dementia in other diseases classified elsewhere, unspecified severity, without behavioral disturbance, psychotic disturbance, mood disturbance, and anxiety; K21.9 Gastro-esophageal reflux disease without esophagitis; R32 Unspecified urinary incontinence; R35.0 Frequency of micturition; H91.90 Unspecified hearing loss, unspecified ear; Z96.649 Presence of unspecified artificial hip joint; Z88.8 Allergy status to other drugs, medicaments and biological substances; Z88.6 Allergy status to analgesic agent; Z79.899 Other long term (current) drug therapy; Z89.412 Acquired absence of left great toe; Z91.81 History of falling
CPT/HCPCS: 36415; 70450; 70551; 71045; 80048; 80053; 80061; 81001; 82803; 83690; 84443; 85025; 85610; 85730; 87086; 87181; 93005; 93306; 93880; 96365; 97110; 97162; 97166; 97530; 99284; 99285; A9270; J0131; 81003; 83721

== ENCOUNTER 2019-09-08 14:23 | Outpatient (CLI) | payer MEDICARE | END 2019-09-08 14:24 | LOC: EMS 14:23 | PROVIDERS: ATTEND Surgery | DX: G81.94 Hemiplegia, unspecified affecting left nondominant side (principal); R53.1 Weakness; Z74.01 Bed confinement status | CPT/HCPCS: A0425; A0428 ==

== ENCOUNTER 2019-09-24 10:51 | Outpatient (CLI) | payer MEDICARE | END 2019-09-24 10:52 | disposition critical access hospital (66) | LOC: EMS 10:51 | PROVIDERS: ATTEND Surgery | DX: S09.90XA Unspecified injury of head, initial encounter (principal); R42 Dizziness and giddiness; R41.0 Disorientation, unspecified; W18.11XA Fall from or off toilet without subsequent striking against object, initial encounter; Y92.121 Bathroom in nursing home as the place of occurrence of the external cause | CPT/HCPCS: A0425; A0429 ==

== ENCOUNTER 2019-09-24 10:55 | Emergency (ER) | payer MEDICARE ==
--- NOTE | 2019-09-24 11:06 | ED Physician Documentation ---
PD HPI HEAD INJURY - Stated complaint Stated Complaint: FALL - Chief complaint Chief Complaint: Trauma Hd/Nk - History obtained from History obtained from: Patient - History of Present Illness Mechanism of head injury: Fell Where head injury occurred: Home Timing - onset: Today (just prior to arrival, pt fell foreward getting off the toilet and hit her head against a countertop) Location of injury: Left (forehead, also Left lower back and mid back pain nd neck pain) Quality of pain: Aching Associated symptoms: LOC, Neck pain. No: AMS, Amnesia, Nausea / vomiting, Paresthesias, Seizures, Ear drainage, Nasal drainage Symptoms improve with: Nothing Symptoms worsen with: Palpation Contributing factors: Anticoagulated (on plavix) Similar symptoms before: Has not had sx before Recently seen: Not recently seen - Treatment prior to arrival Treatment prior to arrival: C-collar in place - Additional information Additional information: Pt doesn't know why she takes plavix. Review of Systems Ten Systems: 10 systems reviewed and negative Constitutional: reports: Reviewed and negative. denies: Fever Eyes: denies: Loss of vision, Decreased vision, Photophobia Ears: reports: Reviewed and negative. denies: Drainage/discharge Nose: reports: Reviewed and negative Throat: reports: Reviewed and negative Cardiac: denies: Chest pain / pressure Respiratory: denies: Dyspnea GI: denies: Abdominal Pain, Nausea, Vomiting : reports: Reviewed and negative Skin: reports: Other (L forehead bruise) Musculoskeletal: reports: Neck pain, Back pain. denies: Extremity pain, Joint pain, Extremity swelling, Joint swelling Neurologic: reports: Headache, Head injury. denies: Generalized weakness, Focal weakness, Numbness, Near syncope, Syncope, Seizure, Confused, Altered mental status, LOC Psychiatric: reports: Reviewed and negative Immunocompromised: reports: Reviewed and negative PD PAST MEDICAL HISTORY - Past Medical History Past Medical History: Yes Cardiovascular: Hypertension, Coronary artery disease, Angina Respiratory: Emphysema Neuro: Alzhiemer's Endocrine/Autoimmune: None GI: GERD, Other : Incontinence, Frequency HEENT: Chronic hearing loss Psych: None Musculoskeletal: Osteoarthritis, Osteoporosis Derm: None - Past Surgical History Past Surgical History: Yes Ortho: Hip replacement, 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 - Present Medications Home Medications: Ambulatory Orders Medication Instructions Recorded Confirmed Donepezil [Aricept] 10 mg PO QPM 07/18/16 09/24/19 Escitalopram [Lexapro] 20 mg PO DAILY 08/28/19 09/24/19 Acetaminophen 325 mg PO Q6H PRN 09/06/19 09/24/19 Calcium Carbonate [Calcium] 600 mg PO DAILY 09/06/19 09/24/19 Memantine HCl 10 mg PO BID 09/06/19 09/24/19 Multivitamin [Theragran] 1 tab PO DAILY 09/06/19 09/24/19 Omeprazole 20 mg PO QDAC 09/06/19 09/24/19 Atorvastatin [Lipitor] 40 mg PO QPM #10 tablet 09/08/19 09/24/19 Clopidogrel [Plavix] 75 mg PO DAILY #10 tablet 09/08/19 09/24/19 Saccharomyces Boulardii [Florastor] 250 mg PO BID #14 capsule 09/08/19 09/24/19 - Allergies Allergies/Adverse Reactions: Allergies Allergy/AdvReac Type Severity Reaction Status Date / Time aspirin Allergy Severe Unknown Verified 09/24/19 11:21 Eggplant Allergy Severe Anaphylaxis Verified 09/24/19 11:21 green pepper Allergy Severe Anaphylaxis Verified 09/24/19 11:21 Penicillins Allergy Severe Unknown Verified 09/24/19 11:21 potato Allergy Severe Anaphylaxis Verified 09/24/19 11:21 tomato Allergy Severe Anaphylaxis Verified 09/24/19 11:21 - Social History Does the pt smoke?: No Smoking Status: Never smoker Does the pt drink ETOH?: No Does the pt have substance abuse?: No - Immunizations Immunizations are current?: No Immunizations: TDAP >10years/unknown - POLST Patient has POLST: No POLST Status: DNR PD ED PE NORMAL - Vitals Vital signs reviewed: Yes - General General: Alert and oriented X 3, No acute distress, Well developed/nourished - HEENT HEENT: PERRL, EOMI, Ears normal, Moist mucous membranes, Pharynx benign, Dentition benign - Neck Neck: Supple, no meningeal sign, No JVD, Other (mild mid Cspine tenderness, no stepoff or deformity ) - Cardiac Cardiac: RRR, No murmur, No gallop, No rub - Respiratory Respiratory: No respiratory distress, Clear bilaterally - Abdomen Abdomen: Soft, Non tender, Non distended - Female Female : Deferred - Rectal Rectal: Deferred - Back Back: No CVA TTP, Other (lower L spine tenderness, no stepoffs or deformities ) - Extremities Extremities: No deformity, No tenderness to palpate, Normal ROM s pain, No edema, No calf tenderness / cord - Neuro Neuro: Alert and oriented X 3, staff developer 2-12 intact, No motor deficit, No sensory deficit, Normal speech Eye Opening: Spontaneous Motor: Obeys Commands Verbal: Oriented GCS Score: 15 - Psych Psych: Normal mood, Normal affect Results - Vitals Vitals: Vital Signs - 24 hr 09/24/19 10:58 Temperature 36.2 C L Heart Rate 59 L Respiratory 18 Rate Blood Pressure 184/75 H O2 Saturation 93 Oxygen O2 Source [Without Activity] Room air O2 Source Room air - Rads (name of study) CT head Radiology: Final report received, See rad report (negative for acute abnormality ) CT C spine Radiology: Final report received, See rad report (negative for acute abnormality ) CT L spine Radiology: Final report received, See rad report (negative for acute abnormality ) PD MEDICAL DECISION MAKING - ED course Complexity details: reviewed results, re-evaluated patient, considered differential, d/w patient ED course: ddx- ICH, SDH, SAH, head contusion, concussion, c spine or L spine injury, neck strain or back strain 84 y/o F with minor GLF on plavix, no LOC, has L scalp hematoma but otherwise GCS15 and pt with mild C spine and L spine tenderness. No deformities. Moving all extremities and denies other pain (just neck and back pain). She is no longer ambulatory at home since having a stroke last week. CT head, Cspine and Lspine neg for acute abnormality. I cleared her C-collar. Pt is stable for discharge with outpt f/u Departure - Departure Disposition: Home, Self Care Clinical Impression: Contusion of scalp Qualifiers: Encounter type: initial encounter Qualified Code(s): S00.03XA - Contusion of scalp, initial encounter Neck muscle strain Qualifiers: Encounter type: initial encounter Qualified Code(s): S16.1XXA - Strain of muscle, fascia and tendon at neck level, initial encounter Lumbar strain Qualifiers: Encounter type: initial encounter Qualified Code(s): S39.012A - Strain of muscle, fascia and tendon of lower back, initial encounter Condition: Stable Record reviewed to determine appropriate education?: Yes Instructions: ED Head Injury Closed Follow-Up: Osvaldo Medina MD [Primary Care Provider] - As Needed Comments: Your CT scan of your head, neck and back were all normal today. You have a bruise on your head and can use ice and tylenol for pain. You are otherwise stable to return home. Return to the ED if you have new concerning symptoms. Discharge Date/Time: 09/24/19 13:23
[2019-09-24 11:09] VITALS: BP 184/75
--- NOTE | 2019-09-24 11:52 | CT Report ---
Reason: head trauma Procedure Date: 09/24/2019 Accession Number: [id number] / [id number] Procedure: CT - CERVICAL SPINE WO CPT Code: Final Report FULL RESULT: EXAM: CT CERVICAL SPINE WITHOUT CONTRAST DATE: 09/24/2019 11:17 AM. HISTORY: Head trauma. COMPARISONS: HEAD W/O 09/05/2019 3:56 PM. TECHNIQUE: Thin-section axial images were acquired of the cervical spine without contrast. Post-processing: Coronal and sagittal reformats. Other: None. In accordance with CT protocol optimization, one or more of the following dose reduction techniques were utilized for this exam: automated exposure control, adjustment of mA and/or KV based on patient size, or use of iterative reconstructive technique. FINDINGS: Alignment: Straightening of the normal cervical lordosis. 2 mm retrolisthesis of C5 on C6 and 2 mm anterolisthesis of C4 on C5 noted. Bones: Osteopenia. No acute fracture lines are seen. No focal abnormal osseous lesions. Interspace Levels/Facets: C1-C2: Degene narrowing of the C1-C2 interspace. C2-C3: Unremarkable. C3-C4: Mild disk height loss. Moderate to severe left and mild right degenerative neural foraminal narrowing. C4-C5: Moderate disk height loss with disk osteophytes. Moderate to severe bilateral degenerative neural foraminal narrowing. C5-C6: Severe disk height loss with prominent disk osteophytes. Moderate to severe bilateral degenerative neural foraminal narrowing. C6-C7: Severe disk height loss or disk osteophytes. Moderate to severe bilateral degenerative neural foraminal narrowing. C7-T1: Unremarkable. Musculature: Normal. No fatty atrophy. Other: The paravertebral and prevertebral soft tissues are unremarkable. Biapical fibronodular pulmonary scarring noted. IMPRESSION: 1. Osteopenia without evidence for acute fracture of the cervical spine. 2. Multilevel degenerative changes in the cervical spine as described above. RADIA
--- NOTE | 2019-09-24 11:53 | CT Report ---
Reason: head trauma, anticoagulated Procedure Date: 09/24/2019 Accession Number: [id number] / [id number] Procedure: CT - HEAD WO CPT Code: Final Report FULL RESULT: EXAM: CT HEAD EXAM DATE: 09/24/2019 11:17 AM. CLINICAL HISTORY: Head trauma, anticoagulated. COMPARISON: HEAD W/O 09/05/2019 3:56 PM. TECHNIQUE: Multiaxial CT images were obtained from the foramen magnum to the vertex. Reformats: Sagittal and coronal. IV contrast: None. In accordance with CT protocol optimization, one or more of the following dose reduction techniques were utilized for this exam: automated exposure control, adjustment of mA and/or KV based on patient size, or use of iterative reconstructive technique. FINDINGS: Parenchyma: No intraparenchymal or intracranial hemorrhage is seen. The previously described right hewitt radiata infarct is reidentified. Chronic microangiopathic white matter changes are seen in both cerebral hemispheres. Hammonds-white differentiation is distinct. There is age-related volume loss. Extraaxial Spaces: Normal for age. No subdural or epidural collections identified. Ventricles: Normal in size and position. Sinuses and Orbits: Imaged paranasal sinuses, orbits, and mastoids show no significant abnormality. Bones: No evidence of fracture or calvarial defect. Other: There is a soft tissue hematoma over the left frontal calvarium with internal hyperdense foci consistent with hemorrhage. 2 partially calcified subcutaneous scalp lesions over the left frontal calvarium are reidentified and unchanged in appearance. IMPRESSION: Left frontal calvarial scalp hematoma. No intracranial hemorrhage. 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 RADIA
--- NOTE | 2019-09-24 12:19 | CT Report ---
Reason: fall, L spine pain Procedure Date: 09/24/2019 Accession Number: [id number] / [id number] Procedure: CT - LUMBAR SPINE WO CPT Code: Final Report FULL RESULT: EXAM: CT LUMBAR SPINE WITHOUT CONTRAST EXAM DATE: 09/24/2019 11:29 AM. CLINICAL HISTORY: Fall, L spine pain. COMPARISONS: Lumbar spine CT from 09/24/2019. TECHNIQUE: Thin-section axial images were acquired of the lumbar spine from T10 to S3 without contrast. Post-processing: Coronal and sagittal reformats. Other: None. In accordance with CT protocol optimization, one or more of the following dose reduction techniques were utilized for this exam: automated exposure control, adjustment of mA and/or KV based on patient size, or use of iterative reconstructive technique. FINDINGS: Alignment: There is moderate levoscoliosis of the lumbar spine, centered at L2-L3. This is not significantly changed from the prior examination. There is approximately 2.5 mm, grade 1 anterolisthesis at L2-L3 and approximately 3 mm, grade 1 anterolisthesis at L5-S1, which is not significantly changed. Bones: Five [id number] lumbar vertebral bodies are present. No acute fracture is demonstrated. Disk Levels/Facets: There is severe asymmetric right-sided disk height loss with endplate sclerosis and spurring at L2-L3 due to scoliosis. Asymmetric mild disk height loss present at L1-L2, L3-L4, and L4-L5. Disk bulge present throughout the lumbar spine. As seen on the prior examination, there is moderate-severe central canal narrowing at L4-L5 due to disk bulge, facet degeneration, and ligamentum flavum hypertrophy. Musculature: No fatty atrophy. Other: There is atelectasis in the lung bases. Heart is mildly enlarged. There are subcentimeter hypoattenuating foci in the liver, which are too small to characterize. 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 There is a 1.6 x 0.8 cm hypoattenuating lesion in the pancreatic head (series 3, image 80). There is suggestion of an additional 0.8 cm hypoattenuating structure in the pancreatic body (series 3, image 75). There are bilateral renal cysts. In the upper pole of the right kidney, there is a 1.0 cm lesion with intermediate attenuation (series 3, image 71). In the upper pole of the left kidney, there is a 0.7 cm lesion with peripheral calcification (series 3, image 69). The appearance is unusual for and nonobstructing calculus, and this may represent a hyperdense parapelvic cyst. There is diverticulosis of the sigmoid colon without evidence for acute diverticulitis. IMPRESSION: 1. No acute fracture of the lumbar spine. 2. Moderate levoscoliosis of the lumbar spine with multilevel degenerative change, as described above. 3. Grade 1 anterolisthesis at L2-L3 and L5-S1, not significantly changed. 4. Hypoattenuating lesions in the pancreas measure up to 1.6 cm. In a patient of this age, follow-up with MRI/MRCP could be considered in 2 years. 5. Bilateral renal cysts as well as indeterminate lesions in the upper poles of both kidneys. Consider follow-up with renal protocol CT or MRI. Given the multiplicity of renal lesions, ultrasound may not allow for comprehensive evaluation of the renal lesions. [facility]
[2019-09-24] MEDS ORDERED: ACETAMINOPHEN 500 MG TABLET PO STA (12:29)
== END 2019-09-24 13:23 | disposition home or self-care (01) ==
LOC: EDUNIT# → ED 10:55
DX: S39.012A Strain of muscle, fascia and tendon of lower back, initial encounter (principal); S16.1XXA Strain of muscle, fascia and tendon at neck level, initial encounter; S00.83XA Contusion of other part of head, initial encounter; W18.12XA Fall from or off toilet with subsequent striking against object, initial encounter; Y93.89 Activity, other specified; Y92.002 Bathroom of unspecified non-institutional (private) residence as the place of occurrence of the external cause; M50.30 Other cervical disc degeneration, unspecified cervical region; M48.02 Spinal stenosis, cervical region; M51.36 Other intervertebral disc degeneration, lumbar region; M41.86 Other forms of scoliosis, lumbar region; I10 Essential (primary) hypertension; G30.9 Alzheimer's disease, unspecified; F02.80 Dementia in other diseases classified elsewhere, unspecified severity, without behavioral disturbance, psychotic disturbance, mood disturbance, and anxiety; J43.9 Emphysema, unspecified; Z79.02 Long term (current) use of antithrombotics/antiplatelets
CPT/HCPCS: 70450; 72125; 72131; 99282; 99284; A9270

== ENCOUNTER 2019-09-27 15:43 | Outpatient (CLI) | payer MEDICARE ==
[2019-09-28 14:41] LABS: HGB - HEMOGLOBIN 12.6 g/dL (12.0-16.0); MEAN CORPUSCULAR HEMOGLOBIN 29.9 pg (27.0-31.0); MEAN CORPUSCULAR HGB CONC 31.2 g/dL (32.0-36.0); MEAN CORPUSCULAR VOLUME 95.7 fL (81.0-99.0); MEAN PLATELET VOLUME 11.5 fL (7.9-10.8); RED BLOOD COUNT 4.22 10^6/uL (4.20-5.40); RED CELL DISTRIBUTION WIDTH 13.2 % (12.0-15.0); WHITE BLOOD COUNT 4.7 x10^3/uL (4.8-10.8)
== END 2019-09-27 23:59 | disposition home or self-care (01) ==
LOC: LAB.R 15:43
DX: I10 Essential (primary) hypertension (principal); D64.9 Anemia, unspecified
CPT/HCPCS: 80053; 85027

== ENCOUNTER 2019-09-29 11:45 | Outpatient (CLI) | payer MEDICARE ==
[2019-09-29 13:52] LABS: BASOPHILS # (AUTO) 0.1 10^3/uL (0.0-0.1); BASOPHILS % (AUTO) 1.2 %; EOSINOPHILS # (AUTO) 0.2 10^3/uL (0.0-0.7); EOSINOPHILS % (AUTO) 3.7 %; HGB - HEMOGLOBIN 15.2 g/dL (12.0-16.0); LYMPHOCYTES # (AUTO) 1.4 10^3/uL (1.5-3.5); LYMPHOCYTES % (AUTO) 23.9 %; MEAN CORPUSCULAR HEMOGLOBIN 30.6 pg (27.0-31.0); MEAN CORPUSCULAR HGB CONC 31.4 g/dL (32.0-36.0); MEAN CORPUSCULAR VOLUME 97.4 fL (81.0-99.0); MEAN PLATELET VOLUME 10.9 fL (7.9-10.8); MONOCYTES # (AUTO) 0.4 10^3/uL (0.0-1.0); MONOCYTES % (AUTO) 6.3 %; NEUTROPHILS # (AUTO) 3.7 10^3/uL (1.5-6.6); NEUTROPHILS % (AUTO) 64.4 %; PLT - PLATELET COUNT 129 10^3/uL (130-450); RED BLOOD COUNT 4.97 10^6/uL (4.20-5.40); RED CELL DISTRIBUTION WIDTH 13.3 % (12.0-15.0); WHITE BLOOD COUNT 5.7 x10^3/uL (4.8-10.8)
[2019-09-29 14:03] LABS: ALBUMIN 4.1 g/dL (3.2-5.5); ALBUMIN/GLOBULIN RATIO 1.2 (1.0-2.2); BILIRUBIN,TOTAL 0.4 mg/dL (0.2-1.0); CALCIUM 9.3 mg/dL (8.5-10.3); CREATININE 0.4 mg/dL (0.4-1.0); TOTAL PROTEIN 7.5 g/dL (6.7-8.2)
== END 2019-09-29 23:59 | disposition home or self-care (01) ==
LOC: LAB.R 11:45
PROVIDERS: ATTEND Family Medicine
DX: I63.00 Cerebral infarction due to thrombosis of unspecified precerebral artery (principal); R60.9 Edema, unspecified
CPT/HCPCS: 36415; 80053; 85025

== ENCOUNTER 2019-11-01 08:00 | Outpatient (CLI) | payer MEDICARE | END 2019-11-01 23:59 | disposition home or self-care (01) | LOC: LAB.R 08:00 | PROVIDERS: ATTEND Family Medicine | DX: J10.1 Influenza due to other identified influenza virus with other respiratory manifestations (principal) | CPT/HCPCS: 87275; 87276 ==

== ENCOUNTER 2019-12-16 10:55 | Outpatient (CLI) | payer MEDICARE, MEDICAID | END 2019-12-16 10:56 | disposition critical access hospital (66) | LOC: EMS 10:55 | PROVIDERS: ATTEND Surgery | DX: M25.512 Pain in left shoulder (principal); M79.89 Other specified soft tissue disorders | CPT/HCPCS: A0425; A0428 ==

== ENCOUNTER 2019-12-16 11:00 | Emergency (ER) | payer MEDICARE, MEDICAID ==
--- NOTE | 2019-12-16 11:21 | ED Physician Documentation ---
History of Present Illness - Stated complaint Stated Complaint: SHOULDER PX - Chief complaint Chief Complaint: Ext Problem - History obtained from History obtained from: Patient (History is limited. Patient presented to the emergency room with complaint of left shoulder tenderness. She lost balance and fell 2 nights ago. She did not hit the ground. She denies any head injury. There is tenderness to the left shoulder with limited range of motion. There is also tenderness to the left knee. There is no other injury. She is alert and oriented although history need to be prompted and limited.) - History of Present Illness Timing: How many days ago (3) Review of Systems Ten Systems: 10 systems reviewed and negative Constitutional: reports: Reviewed and negative Eyes: reports: Reviewed and negative Ears: reports: Reviewed and negative Nose: reports: Reviewed and negative Throat: reports: Reviewed and negative Cardiac: reports: Reviewed and negative Respiratory: reports: Reviewed and negative GI: reports: Reviewed and negative : reports: Reviewed and negative Skin: reports: Reviewed and negative Musculoskeletal: reports: Extremity pain, Joint pain Neurologic: reports: Reviewed and negative Psychiatric: reports: Reviewed and negative Endocrine: reports: Reviewed and negative Immunocompromised: reports: Reviewed and negative PD PAST MEDICAL HISTORY - Past Medical History Cardiovascular: Hypertension, Coronary artery disease, Angina Respiratory: Emphysema Neuro: Alzhiemer's Endocrine/Autoimmune: None GI: GERD, Other : Incontinence, Frequency HEENT: Chronic hearing loss Psych: None Musculoskeletal: Osteoarthritis, Osteoporosis Derm: None - Past Surgical History Past Surgical History: Yes Ortho: Hip replacement, Other /CORRECTIONS CORPORAL: Hysterectomy - Present Medications Home Medications: Ambulatory Orders Medication Instructions Recorded Confirmed Donepezil [Aricept] 10 mg PO QPM 07/18/16 09/24/19 Escitalopram [Lexapro] 20 mg PO DAILY 08/28/19 09/24/19 Acetaminophen 325 mg PO Q6H PRN 09/06/19 09/24/19 Calcium Carbonate [Calcium] 600 mg PO DAILY 09/06/19 09/24/19 Memantine HCl 10 mg PO BID 09/06/19 09/24/19 Multivitamin [Theragran] 1 tab PO DAILY 09/06/19 09/24/19 Omeprazole 20 mg PO QDAC 09/06/19 09/24/19 Atorvastatin [Lipitor] 40 mg PO QPM #10 tablet 09/08/19 09/24/19 Clopidogrel [Plavix] 75 mg PO DAILY #10 tablet 09/08/19 09/24/19 Saccharomyces Boulardii [Florastor] 250 mg PO BID #14 capsule 09/08/19 09/24/19 - Allergies Allergies/Adverse Reactions: Allergies Allergy/AdvReac Type Severity Reaction Status Date / Time aspirin Allergy Severe Unknown Verified 12/16/19 11:10 Eggplant Allergy Severe Anaphylaxis Verified 12/16/19 11:10 green pepper Allergy Severe Anaphylaxis Verified 12/16/19 11:10 Penicillins Allergy Severe Unknown Verified 12/16/19 11:10 potato Allergy Severe Anaphylaxis Verified 12/16/19 11:10 tomato Allergy Severe Anaphylaxis Verified 12/16/19 11:10 - Social History Does the pt smoke?: No Smoking Status: Never smoker Does the pt drink ETOH?: No Does the pt have substance abuse?: No - Immunizations Immunizations are current?: No Immunizations: TDAP >10years/unknown - POLST Patient has POLST: No POLST Status: DNR PD ED PE NORMAL - Vitals Vital signs reviewed: Yes - General General: Alert and oriented X 3, No acute distress - HEENT HEENT: PERRL - Neck Neck: Supple, no meningeal sign - Cardiac Cardiac: RRR, No murmur - Respiratory Respiratory: Clear bilaterally - Abdomen Abdomen: Normal bowel sounds, Soft, Non tender, Non distended - Derm Derm: Warm and dry - Extremities Extremities: Other (Tenderness of the left shoulder on range of motion, tenderness of the left knee on range of motion, mild limited range of motion to the left hip although there was no tenderness,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 Eye Opening: Spontaneous Motor: Obeys Commands Verbal: Oriented GCS Score: 15 - Psych Psych: Normal mood, Normal affect Results - Vitals Vitals: Vital Signs - 24 hr 12/16/19 12/16/19 11:11 12:34 Temperature 37.0 C Heart Rate 61 58 L Respiratory 17 15 Rate Blood Pressure 169/86 H 132/75 H O2 Saturation 99 97 Oxygen O2 Source [Without Activity] Room air O2 Source Room air PD MEDICAL DECISION MAKING - ED course Complexity details: d/w patient, d/w family ED course: Patient is reassessed at 1245 and disclosed negative x-ray of the left shoulder, negative x-ray of the left rib and chest PA, negative x-ray of the left hip and pelvis, negative x-ray of the left knee. She is given impression of contusion. She is asked to take Tylenol as needed for pain. In follow-up primary care doctor for further management which may include physical therapy referral. Departure - Departure Disposition: 01 Home, Self Care Clinical Impression: Contusion of left knee, initial encounter Contusion of shoulder, left Qualifiers: Encounter type: initial encounter Qualified Code(s): S40.012A - Contusion of left shoulder, initial encounter Condition: Stable Instructions: ED Contusion Shoulder Follow-Up: Louie Alexander MD [Primary Care Provider] - Comments: Please take Tylenol as needed for pain every 6 hours. Follow-up with primary care doctor for further management which may include physical therapy referral. If there is still bony tenderness in 7 to 10 days, you may need to have x-ray to rule out hairline fracture that is missed today.
[2019-12-16 12:34] VITALS: BP 132/75
--- NOTE | 2019-12-16 12:41 | XRAY Report ---
Reason: fall Procedure Date: 12/16/2019 Accession Number: [id number] / [id number] Procedure: XR - Hip w/Pelvis 2-3V LT CPT Code: Final Report FULL RESULT: EXAM: LEFT HIP RADIOGRAPHY EXAM DATE: 12/16/2019 12:24 PM. CLINICAL HISTORY: Fall. COMPARISON: HIP W/PELVIS 2-3V LT 08/26/2019 12:00 PM. TECHNIQUE: 2 views. FINDINGS: Bones: Normal. No fractures or bone lesion. Joints: Total right hip arthroplasty with no evidence of hardware failure or loosening in the visualized component. Soft Tissues: Normal. No soft tissue swelling. IMPRESSION: No fracture. [facility]
--- NOTE | 2019-12-16 12:49 | XRAY Report ---
Reason: fall Procedure Date: 12/16/2019 Accession Number: [id number] / [id number] Procedure: XR - Shoulder 3 View LT CPT Code: Final Report FULL RESULT: EXAM: LEFT SHOULDER RADIOGRAPHY EXAM DATE: 12/16/2019 12:24 PM. CLINICAL HISTORY: Fall. COMPARISON: None. TECHNIQUE: 3 views. FINDINGS: Bones: Bones are osteopenic. No displaced fracture. Joints: Marginal osteophyte formation at the humeral head. Acromioclavicular joint is unremarkable. Soft tissues: The visualized hemithorax is unremarkable. No soft tissue swelling. IMPRESSION: No displaced fracture. Glenohumeral osteoarthritis. [facility]
--- NOTE | 2019-12-16 12:54 | XRAY Report ---
Reason: fall Procedure Date: 12/16/2019 Accession Number: [id number] / [id number] Procedure: XR - Ribs w/PA Chest LT CPT Code: Final Report FULL RESULT: EXAM: LEFT RIB RADIOGRAPHY EXAM DATE: 12/16/2019 12:24 PM. CLINICAL HISTORY: Fall. COMPARISON: None. TECHNIQUE: 1 view of the chest and 2 views of the ribs. FINDINGS: Bones: Osteopenia limits sensitivity for nondisplaced fractures. No fractures visualized. Lumbar dextroscoliosis. Lungs: No focal opacities. No pneumothorax. No pleural effusions. Mediastinum: Heart and mediastinal contours are unremarkable. Other: None. IMPRESSION: No displaced rib fracture. [facility]
--- NOTE | 2019-12-16 12:56 | XRAY Report ---
Reason: fall Procedure Date: 12/16/2019 Accession Number: [id number] / [id number] Procedure: XR - Knee 3 View LT CPT Code: Final Report FULL RESULT: EXAM: LEFT KNEE RADIOGRAPHY EXAM DATE: 12/16/2019 12:24 PM. CLINICAL HISTORY: Fall. COMPARISON: None. TECHNIQUE: 3 views. FINDINGS: Bones: Normal. No fractures or bone lesions. Joints: Severe medial compartment joint space loss with marginal osteophyte formation, subchondral sclerosis, and bony remodeling at the medial tibial plateau. 1 cm intra-articular body at the posterior aspect of the joint space. No effusion. Soft Tissues: Normal. No soft tissue swelling. IMPRESSION: No fracture. Severe left knee osteoarthritis. 1 cm intra-articular body. [facility]
== END 2019-12-16 13:50 | disposition home or self-care (01) ==
LOC: EDUNIT# → ED 11:00
DX: S40.012A Contusion of left shoulder, initial encounter (principal); S80.02XA Contusion of left knee, initial encounter; W18.30XA Fall on same level, unspecified, initial encounter; M17.12 Unilateral primary osteoarthritis, left knee; M19.012 Primary osteoarthritis, left shoulder; Z96.641 Presence of right artificial hip joint; I10 Essential (primary) hypertension; G30.9 Alzheimer's disease, unspecified; F02.80 Dementia in other diseases classified elsewhere, unspecified severity, without behavioral disturbance, psychotic disturbance, mood disturbance, and anxiety; Z79.02 Long term (current) use of antithrombotics/antiplatelets
CPT/HCPCS: 99284

== ENCOUNTER 2019-12-17 18:59 | Outpatient (CLI) | payer MEDICARE, MEDICAID | END 2019-12-17 19:00 | disposition critical access hospital (66) | LOC: EMS 18:59 | PROVIDERS: ATTEND Surgery | DX: M25.512 Pain in left shoulder (principal); M79.89 Other specified soft tissue disorders; Z91.81 History of falling | CPT/HCPCS: A0425; A0429 ==

== ENCOUNTER 2019-12-23 16:05 | Outpatient (CLI) | payer MEDICAID, MEDICARE ==
[2019-12-23 16:47] LABS: BASOPHILS # (AUTO) 0.1 10^3/uL (0.0-0.1); BASOPHILS % (AUTO) 1.3 %; EOSINOPHILS # (AUTO) 0.2 10^3/uL (0.0-0.7); EOSINOPHILS % (AUTO) 4.4 %; HGB - HEMOGLOBIN 13.2 g/dL (12.0-16.0); LYMPHOCYTES # (AUTO) 1.5 10^3/uL (1.5-3.5); LYMPHOCYTES % (AUTO) 31.4 %; MEAN CORPUSCULAR HEMOGLOBIN 30.3 pg (27.0-31.0); MEAN CORPUSCULAR HGB CONC 31.9 g/dL (32.0-36.0); MEAN PLATELET VOLUME 11.4 fL (7.9-10.8); MONOCYTES # (AUTO) 0.4 10^3/uL (0.0-1.0); MONOCYTES % (AUTO) 9.1 %; NEUTROPHILS # (AUTO) 2.5 10^3/uL (1.5-6.6); NEUTROPHILS % (AUTO) 53.2 %; PLT - PLATELET COUNT 130 10^3/uL (130-450); RED BLOOD COUNT 4.36 10^6/uL (4.20-5.40); RED CELL DISTRIBUTION WIDTH 13.8 % (12.0-15.0); WHITE BLOOD COUNT 4.7 x10^3/uL (4.8-10.8)
[2019-12-23 17:12] LABS: ALBUMIN 3.8 g/dL (3.2-5.5); ALBUMIN/GLOBULIN RATIO 1.2 (1.0-2.2); BILIRUBIN,TOTAL 0.3 mg/dL (0.2-1.0); CALCIUM 8.8 mg/dL (8.5-10.3); CREATININE 0.4 mg/dL (0.4-1.0); TOTAL PROTEIN 6.9 g/dL (6.7-8.2)
== END 2019-12-23 23:59 | disposition home or self-care (01) ==
LOC: LAB.R 16:05
DX: I63.00 Cerebral infarction due to thrombosis of unspecified precerebral artery (principal)
CPT/HCPCS: 80053; 85025

== ENCOUNTER 2020-01-28 15:00 | Outpatient (CLI) | payer MEDICARE, MEDICAID | END 2020-01-28 23:59 | disposition home or self-care (01) | LOC: LAB.R 15:00 | PROVIDERS: ATTEND Family Medicine | DX: J10.1 Influenza due to other identified influenza virus with other respiratory manifestations (principal) | CPT/HCPCS: 87275; 87276 ==

== ENCOUNTER 2020-03-04 17:08 | Outpatient (CLI) | payer MEDICARE, MEDICAID ==
[2020-03-04 18:56] LABS: EOSINOPHILS # (AUTO) 0.4 10^3/uL (0.0-0.7); EOSINOPHILS % (AUTO) 8.6 %; HGB - HEMOGLOBIN 12.3 g/dL (12.0-16.0); LYMPHOCYTES # (AUTO) 1.3 10^3/uL (1.5-3.5); LYMPHOCYTES % (AUTO) 31.8 %; MEAN CORPUSCULAR HEMOGLOBIN 30.7 pg (27.0-31.0); MEAN CORPUSCULAR HGB CONC 31.8 g/dL (32.0-36.0); MEAN CORPUSCULAR VOLUME 96.5 fL (81.0-99.0); MONOCYTES # (AUTO) 0.4 10^3/uL (0.0-1.0); NEUTROPHILS % (AUTO) 48.9 %; PLT - PLATELET COUNT 124 10^3/uL (130-450); RED BLOOD COUNT 4.01 10^6/uL (4.20-5.40); RED CELL DISTRIBUTION WIDTH 13.7 % (12.0-15.0); WHITE BLOOD COUNT 4.1 x10^3/uL (4.8-10.8)
[2020-03-04 19:04] LABS: CALCIUM 8.7 mg/dL (8.5-10.3); CREATININE 0.4 mg/dL (0.4-1.0)
== END 2020-03-04 23:59 | disposition home or self-care (01) ==
LOC: LAB.R 17:08
DX: R94.6 Abnormal results of thyroid function studies (principal)
CPT/HCPCS: 80048; 84443; 85025

== ENCOUNTER 2020-08-11 08:00 | Outpatient (CLI) | payer MEDICARE, MEDICAID | END 2020-08-11 23:59 | disposition home or self-care (01) | LOC: LAB.R 08:00 | PROVIDERS: ATTEND Family Medicine | DX: R60.9 Edema, unspecified (principal); M19.90 Unspecified osteoarthritis, unspecified site | CPT/HCPCS: 84134 ==

== ENCOUNTER 2020-12-13 18:10 | Outpatient (CLI) | payer MEDICARE, MEDICAID ==
[2020-12-13 19:36] LABS: BASOPHILS # (AUTO) 0.1 10^3/uL (0.0-0.1); BASOPHILS % (AUTO) 1.2 %; EOSINOPHILS # (AUTO) 0.3 10^3/uL (0.0-0.7); EOSINOPHILS % (AUTO) 4.2 %; HGB - HEMOGLOBIN 14.5 g/dL (12.0-16.0); LYMPHOCYTES # (AUTO) 2.1 10^3/uL (1.5-3.5); LYMPHOCYTES % (AUTO) 30.6 %; MEAN CORPUSCULAR HEMOGLOBIN 30.9 pg (27.0-31.0); MEAN CORPUSCULAR VOLUME 96.4 fL (81.0-99.0); MEAN PLATELET VOLUME 11.4 fL (7.9-10.8); MONOCYTES # (AUTO) 0.6 10^3/uL (0.0-1.0); MONOCYTES % (AUTO) 8.1 %; NEUTROPHILS # (AUTO) 3.8 10^3/uL (1.5-6.6); NEUTROPHILS % (AUTO) 55.3 %; PLT - PLATELET COUNT 161 10^3/uL (130-450); RED CELL DISTRIBUTION WIDTH 13.2 % (12.0-15.0); WHITE BLOOD COUNT 6.8 x10^3/uL (4.8-10.8)
[2020-12-13 20:12] LABS: ALBUMIN 3.7 g/dL (3.2-5.5); ALBUMIN/GLOBULIN RATIO 1.2 (1.0-2.2); BILIRUBIN,TOTAL 0.3 mg/dL (0.2-1.0); CALCIUM 9.1 mg/dL (8.5-10.3); CREATININE 0.5 mg/dL (0.4-1.0); TOTAL PROTEIN 6.8 g/dL (6.7-8.2)
== END 2020-12-13 23:59 | disposition home or self-care (01) ==
LOC: LAB.R 18:10
DX: I10 Essential (primary) hypertension (principal); I25.10 Atherosclerotic heart disease of native coronary artery without angina pectoris; I48.91 Unspecified atrial fibrillation
CPT/HCPCS: 80053; 85025

== ENCOUNTER 2021-08-04 13:02 | Outpatient (CLI) | payer MEDICARE, MEDICAID ==
[2021-08-04 13:15] LABS: BASOPHILS # (AUTO) 0.1 10^3/uL (0.0-0.1); BASOPHILS % (AUTO) 1.1 %; EOSINOPHILS # (AUTO) 0.2 10^3/uL (0.0-0.7); EOSINOPHILS % (AUTO) 3.8 %; HGB - HEMOGLOBIN 13.9 g/dL (12.0-16.0); LYMPHOCYTES # (AUTO) 1.8 10^3/uL (1.5-3.5); LYMPHOCYTES % (AUTO) 37.7 %; MEAN CORPUSCULAR HEMOGLOBIN 32.1 pg (27.0-31.0); MEAN CORPUSCULAR HGB CONC 33.1 g/dL (32.0-36.0); MEAN PLATELET VOLUME 11.3 fL (7.9-10.8); MONOCYTES # (AUTO) 0.3 10^3/uL (0.0-1.0); MONOCYTES % (AUTO) 7.2 %; NEUTROPHILS # (AUTO) 2.3 10^3/uL (1.5-6.6); NEUTROPHILS % (AUTO) 49.3 %; PLT - PLATELET COUNT 131 10^3/uL (130-450); RED BLOOD COUNT 4.33 10^6/uL (4.20-5.40); RED CELL DISTRIBUTION WIDTH 13.4 % (12.0-15.0); WHITE BLOOD COUNT 4.7 x10^3/uL (4.8-10.8)
[2021-08-04 13:27] LABS: ALBUMIN 3.7 g/dL (3.2-5.5); ALBUMIN/GLOBULIN RATIO 1.4 (1.0-2.2); BILIRUBIN,TOTAL 0.4 mg/dL (0.2-1.0); CALCIUM 9.3 mg/dL (8.5-10.3); CREATININE 0.5 mg/dL (0.4-1.0); TOTAL PROTEIN 6.4 g/dL (6.7-8.2)
== END 2021-08-04 13:03 | disposition home or self-care (01) ==
LOC: LAB.R 13:02
PROVIDERS: ATTEND Family Medicine
DX: I25.10 Atherosclerotic heart disease of native coronary artery without angina pectoris (principal); I10 Essential (primary) hypertension
CPT/HCPCS: 80053; 85025

== ENCOUNTER 2022-02-28 08:00 | Outpatient (CLI) | payer MEDICARE, MEDICAID ==
[2022-02-28 19:37] LABS: BASOPHILS # (AUTO) 0.1 10^3/uL (0.0-0.1); EOSINOPHILS # (AUTO) 0.3 10^3/uL (0.0-0.7); EOSINOPHILS % (AUTO) 5.3 %; HCT - HEMATOCRIT 39.6 % (37.0-47.0); LYMPHOCYTES # (AUTO) 1.7 10^3/uL (1.5-3.5); MEAN CORPUSCULAR HEMOGLOBIN 32.3 pg (27.0-31.0); MEAN CORPUSCULAR HGB CONC 32.8 g/dL (32.0-36.0); MEAN CORPUSCULAR VOLUME 98.5 fL (81.0-99.0); MEAN PLATELET VOLUME 10.7 fL (7.9-10.8); MONOCYTES # (AUTO) 0.4 10^3/uL (0.0-1.0); MONOCYTES % (AUTO) 7.5 %; NEUTROPHILS # (AUTO) 2.5 10^3/uL (1.5-6.6); NEUTROPHILS % (AUTO) 50.6 %; PLT - PLATELET COUNT 136 10^3/uL (130-450); RED BLOOD COUNT 4.02 10^6/uL (4.20-5.40); RED CELL DISTRIBUTION WIDTH 13.4 % (12.0-15.0); WHITE BLOOD COUNT 4.9 x10^3/uL (4.8-10.8)
[2022-02-28 20:10] LABS: ALBUMIN 3.5 g/dL (3.2-5.5); ALBUMIN/GLOBULIN RATIO 1.5 (1.0-2.2); BILIRUBIN,TOTAL 0.3 mg/dL (0.2-1.0); CALCIUM 8.7 mg/dL (8.5-10.3); CREATININE 0.4 mg/dL (0.4-1.0); POTASSIUM 3.6 mmol/L (3.5-5.0); TOTAL PROTEIN 5.9 g/dL (6.7-8.2)
== END 2022-02-28 23:59 | disposition home or self-care (01) ==
LOC: LAB.R 08:00
DX: E03.9 Hypothyroidism, unspecified (principal); D64.9 Anemia, unspecified; R53.1 Weakness; E08.9 Diabetes mellitus due to underlying condition without complications
CPT/HCPCS: 80053; 81599; 83036; 84443; 85025

== ENCOUNTER 2022-08-16 10:35 | Outpatient (CLI) | payer MEDICARE, MEDICAID | END 2022-08-16 10:36 | disposition home or self-care (01) | LOC: LAB.R 10:35 | PROVIDERS: ATTEND Internal Medicine | DX: N89.8 Other specified noninflammatory disorders of vagina (principal) | CPT/HCPCS: 87070; 87181 ==

== ENCOUNTER 2022-10-10 08:00 | Outpatient (CLI) | payer MEDICARE, MEDICAID ==
[2022-10-10 17:15] LABS: CALCIUM 8.7 mg/dL (8.5-10.3); CREATININE 0.4 mg/dL (0.4-1.0); POTASSIUM 3.7 mmol/L (3.5-5.0)
== END 2022-10-10 23:59 | disposition home or self-care (01) ==
LOC: LAB.R 08:00
DX: R53.1 Weakness (principal)
CPT/HCPCS: 80048